=== PATIENT | female | born 1965 | race Caucasian/White ===

== ENCOUNTER 2023-04-06 08:38 | Day surgery (SDC) | payer MEDICARE, SELFPAY ==
[2023-04-06] VITALS (14 sets, daily range): BP systolic 97–143; BP diastolic 58–85; PULSE 58–87; RESP 15–19; O2SAT 90–99; BMI 31.4
--- NOTE | 2023-04-06 07:14 | IR_ITS ---
APPROVED REPORT Patient Location: Outpatient Moving Picture Producer: CORONA Sparks RT (R) PROCEDURES Left heart catheterization Left ventriculogram Selective coronary angiogram INDICATION Abnormal stress test, Angina pectoris, Strong family history of coronary disease, Informed consent was obtained prior to the procedure. COMPLICATIONS NONE Estimated Blood Loss: LESS THAN 10 ML TECHNIQUE One percent lidocaine used to anesthetize the right anterior aspect of the wrist. The right radial artery was accessed via the Seldinger technique. A 6 Salvadorean sheath was placed in the right radial artery. 150 mg magnesium sulfate, 800 mcg of nitroglycerin, 1mg Lidocaine and 5000 U Heparin were given through the arterial sheath. The papa catheter was also used to perform left heart catheterization, left ventriculogram and selective coronary angiogram. At the end of the procedure the sheath was removed good hemostasis was achieved using Traclet band, patient was transferred to the postop holding area in stable condition. ANGIOGRAPHIC RESULTS The left main artery Normal The left anterior descending artery Has proximal 10% luminal regularities with a mid vessel concentric 50% stenosis immediately distal to a third diagonal artery. The LAD is large and wraps the apex The circumflex artery Is nondominant and has proximal and mid vessel 10 to 20% stenoses The right coronary artery Is a dominant vessel and has proximal 10 to 20% stenoses with additional 10 to 20% stenoses in the posterior descending artery The TEJADA ventriculogram reveals Normal 65% The left ventricular end-diastolic pressure 10 mmHg IMPRESSION Moderate coronary artery disease in the mid LAD Mild diffuse coronary disease as described above Normal ejection fraction Normal left ventricular end-diastolic pressure PLAN 1. Medical management for the coronary artery disease 2. Risk factor modification 3. Cardiac rehabilitation 4. LDL less than 55 to be achieved with high intensity statin 5. Maximize antianginal medications Electronically signed by : Chris Copeland MD 04/06/2023 13:24:04
[2023-04-06 09:29] LABS: Basophils # 0.1 K/mm3 (0-0.2); Basophils % 0.6 % (0.1-2.0); Eosinophils # 0.1 K/mm3 (0.0-0.4); Eosinophils % 1.3 % (0.1-12.0); Hematocrit 45.6 % (37.0-47.0); Hemoglobin 14.5 g/dL (12.2-16.2); Lymphocytes # 2.6 K/mm3 (0.7-4.5); Lymphocytes % 29.5 % (10-50); Mean Corpuscular HGB Conc 31.8 g/dL (31.8-35.4); Mean Corpuscular Hemoglobin 28.6 pg (27.0-31.2); Mean Corpuscular Volume 89.9 fl (81-99); Mean Platelet Volume 8.3 fl (7.4-10.4); Monocytes # 0.4 K/mm3 (0.1-1.0); Monocytes % 4.9 % (1.7-9.3); Neutrophils # 5.6 K/mm3 (1.8-7.8); Neutrophils % 63.7 % (37.0-80.0); Platelet Count 335 K/mm3 (142-424); Red Blood Count 5.07 M/mm3 (4.20-5.40); Red Cell Distribution Width 13.2 % (11.5-17.5); White Blood Count 8.8 K/mm3 (4.8-10.8)
[2023-04-06 09:30] LABS: Chloride 101 mmol/L (98-107); Potassium 3.8 mmoL/L (3.5-5.1); Sodium 140 mmol/L (136-145)
[2023-04-06 09:33] LABS: Anion Gap 14.8 mEq/L (5-15); Blood Urea Nitrogen 24 mg/dl (7-17); Calcium 9.1 mg/dl (8.4-10.2); Carbon Dioxide 28 mmol/L (22.0-30.0); Creatinine Clearance Estimated 60 mL/min (50-200); Estimated Glomerular Filt Rate 46 ml/min (>60); GFR (African American) 56 ML/MIN (>60); Glucose 127 mg/dl (74-100)
[2023-04-06 09:36] LABS: INR 0.97 (0.9-1.1); Prothrombin Time 10.5 seconds (10.1-12.5)
== END 2023-04-06 14:06 | disposition home or self-care (01) ==
PROVIDERS: PCP Family Medicine; Visit Provider Internal Medicine
DX: I25.119 Atherosclerotic heart disease of native coronary artery with unspecified angina pectoris (principal); R60.0 Localized edema; R94.30 Abnormal result of cardiovascular function study, unspecified; Z82.49 Family history of ischemic heart disease and other diseases of the circulatory system
CPT/HCPCS: 80048; 85025; 85610; 93458; 99152; C1725; C1769; J1644; Q9967

== ENCOUNTER 2024-04-13 11:55 | Outpatient (CLI) | payer MEDICARE, SELFPAY ==
[2024-04-13 12:38] LABS: Basophils # 0.1 K/mm3 (0-0.2); Basophils % 1.3 % (0.1-2.0); Eosinophils # 0.1 K/mm3 (0.0-0.4); Eosinophils % 1.3 % (0.1-12.0); Hematocrit 42.3 % (37.0-47.0); Hemoglobin 13.7 g/dL (12.2-16.2); Lymphocytes # 2.3 K/mm3 (0.7-4.5); Lymphocytes % 39.3 % (10-50); Mean Corpuscular HGB Conc 32.5 g/dL (31.8-35.4); Mean Corpuscular Hemoglobin 29.6 pg (27.0-31.2); Mean Corpuscular Volume 90.9 fl (81-99); Mean Platelet Volume 8.6 fl (7.4-10.4); Monocytes # 0.3 K/mm3 (0.1-1.0); Monocytes % 5.3 % (1.7-9.3); Neutrophils # 3.1 K/mm3 (1.8-7.8); Neutrophils % 52.8 % (37.0-80.0); Platelet Count 318 K/mm3 (142-424); Red Blood Count 4.65 M/mm3 (4.20-5.40); Red Cell Distribution Width 13.9 % (11.5-17.5); White Blood Count 5.9 K/mm3 (4.8-10.8)
[2024-04-13 13:15] LABS: Alanine Aminotransferase 24 U/L (12-78); Albumin Level 4.2 g/dl (3.5-5.0); Alkaline Phosphatase 67 U/L (38-126); Anion Gap 15.1 mEq/L (5-15); Aspartate Amino Transferase 27 U/L (14-36); Bilirubin,Indirect 0.4 mg/dL (0.0-0.9); Bilirubin,Total 0.4 mg/dl (0.2-1.3); Bilirubin,Unconjugated 0.5 mg/dL (0.0-1.1); Blood Urea Nitrogen 20 mg/dl (7-17); Calcium 9.4 mg/dl (8.4-10.2); Carbon Dioxide 24 mmol/L (22.0-30.0); Chloride 107 mmol/L (98-107); Chol/HDL Ratio 4.6 (1-3.5); Cholesterol 285 mg/dl (140-200); Estimated Glomerular Filt Rate 51 ml/min (>60); GFR (African American) 61 ML/MIN (>60); Glucose 111 mg/dl (74-100); HDL Cholesterol 62 mg/dl (40-60); Potassium 4.1 mmoL/L (3.5-5.1); Sodium 142 mmol/L (136-145); Total Protein,Serum 7.1 g/dl (6.3-8.2); Triglycerides 141 mg/dl (30-150); VLDL Cholesterol 28 mg/dL (0-40)
[2024-04-13 13:27] LABS: Direct LDL Cholesterol 158.68 mg/dL (100-129)
[2024-04-13 13:31] LABS: Free T4 (Free Thyroxine) 1.08 ng/dl (0.78-2.19)
[2024-04-13 13:45] LABS: Thyroid Stimulating Hormone 3.49 uIU/mL (0.465-4.68)
== END 2024-04-13 23:59 | disposition home or self-care (01) ==
PROVIDERS: PCP Family Medicine; Visit Provider Nurse Practitioner Family
DX: E78.49 Other hyperlipidemia (principal); I11.9 Hypertensive heart disease without heart failure; I25.10 Atherosclerotic heart disease of native coronary artery without angina pectoris; R60.0 Localized edema
CPT/HCPCS: 36415; 80048; 80061; 80076; 83735; 84439; 84443; 85025

== ENCOUNTER 2025-05-24 12:11 | Outpatient (CLI) | payer MEDICARE, SELFPAY ==
--- OUTSIDE RECORDS SUMMARY | 2025-04-11 09:47 | XMS_ITS | Encounter Summary ---
Author Organization [facility] [place] [address] Care Team Providers Care Court Magistrate Name Role Phone Rachna Talavera MD Unavailable Fernando Green DO Primary Care Provider [phone] Reason for Referral * Mammography (Routine) - Pending Review Specialty Diagnoses / Procedures Referred By Manas ribeiro Referred To Contact Radiology Diagnoses Encounter for screening mammogram for malignant neoplasm of breast Procedures MM MAMMO DIGITAL LORIE SCREEN Fernando Farrell DO [address] [place] [phone] Phone: tel: fax: Referral ID Status Reason Start Date Expiration Date V isits Requested Visits Authorized [id number] Pending Review 03/08/2025 03/08/2027 1 1 Reason for Visit * Mammography (Routine) - Pending Review Specialty Diagnoses / Procedures Referred By Manas ribeiro Referred To Contact Radiology Diagnoses Encounter for screening mammogram for malignant neoplasm of breast Procedures MM MAMMO DIGITAL LORIE SCREEN Fernando Farrell DO [address] [place] [phone] Phone: tel: fax: Referral ID Status Reason Start Date Expiration Date V isits Requested Visits Authorized [id number] Pending Review 03/08/2025 03/08/2027 1 1 Encounter Details Date Type Department Care Team (Latest Contact Info) Description 04/11/2025 9:47 AM EDT - 04/11/2025 11:59 PM EDT Hospital Encounter [facility] Mammography [address] [place], [place] [id number] Fernando Green, DO [address] [facility] [address] [place] [address] Encounter for screening mammogram for malignant neoplasm of breast Discharge Disposition: Home or Self Care Social History Tobacco Use Types Packs/Day Years Used Date Smoking Tobacco: Never Passive Smoke Exposure: Past Smokeless Tobacco: Never Alcohol Use Standard Drinks/Week Comments Not Currently 1 (1 standard drink = 0.6 oz pur e alcohol) Overall Financial Resource Strain (CARDIA) Answe r Date Recorded How hard is it for you to pa y for the very basics like food, housing, medical care, and heating? Not hard at all 12/03/2020 PHQ-2 Answer Date Recorded PHQ-2 Total Score 0 06/06/2024 Hunger Vital Sign Answer Date Recorded Within the past 12 months, y ou worried that your food would run out before you got the money to buy more. Never true 12/03/19 21 Within the past 12 months, t he food you bought just didn't last and you didn't have money to get more. Never true 12/03/2020 PRAPARE - Transportation Answer Date Re corded In the past 12 months, has l ack of transportation kept you from medical appointments or from getting medications? No 05/2021 In the past 12 months, has l ack of transportation kept you from meetings, work, or from getting things needed for daily living? No 12/03/2020 Sexually Active Control Partners Comments Yes Surgical Male tubal Comments No Sex and Gender Information Value Date Recorded Sex Assigned at Not on file Legal Sex Female 6:40 PM EDT Gender Identity Not on file Sexual Orientation Not on file Occupation Industry Job Start Date Job End Date Not on file Not on file Not on file Not on file documented as of this encounter Last Filed Vital Signs Vital Sign Reading Time Taken Comments Blood Pressure - - Pulse - - Temperature - - Respiratory Rate - - Oxygen Saturation - - Inhaled Oxygen Concentration - - Weight 75.8 kg (167 lb) 04/11/2025 9:48 AM EDT Height - - Body Mass Index 30.54 02/15/2025 12:51 PM EDT documented in this encounter Functional Status * Is the person deaf or does he/she have serious difficulty hearing? Answer Date of Assessment Author No 06/24/2024 10:25 AM Karolina Turner MA * Is the person blind or does he/she have serious difficulty seeing even when wearing glasses? Answer Date of Assessment Author No 06/24/2024 10:25 AM Karolina Turner MA * Does this person have serious difficulty walking or climbing stairs? Answer Date of Assessment Author No 06/24/2024 10:25 AM Karolina Turner MA * Does this person have difficulty dressing or bathing? Answer Date of Assessment Author No 06/24/2024 10:25 AM Karolina Turner MA * Because of a physical, mental or emotional condition, does this person have difficulty doing errands alone such as visiting a doctor's office or shopping? Answer Date of Assessment Author No 06/24/2024 10:25 AM Karolina Turner MA documented as of this encounter Mental Status * Because of a physical, mental or emotional condition, does this person have serious difficulty concentrating, remembering or making decisions? Answer Entry Date Author No 06/24/2024 10:25 AM Karolina Turner MA documented in this encounter Medications at Time of Discharge fluticasone propionate (FLONASE) 50 mcg/actuation Nasl Gillett, SuspensionIndicat ions:Cough, unspecified type 1 Gillett by Nasal route daily. 1 Each 2 11/03/2023 omeprazole (PRILOSEC) 40 mg Oral Capsule, Delayed Release(E.C.) TAKE 1 CAPSULE BY MOUTH 2 TIMES DAILY. TAKE 30 MIN PRIOR TO BREAKFAST AND DINNER. 180 Capsule 3 01/17/2025 documented as of this encounter Discharge Disposition Disposition Code Departure Means Destination Home or Self Care documented in this encounter Plan of Treatment Upcoming Encounters Date Type Department Care Team (Late st Contact Info) Description 05/25/2025 8:15 AM EDT Office Visit [facility] [address] [place] [address] Fernando Green, [address] [facility] [address] [place] [address] 06/15/2025 10:30 AM EDT [facility] Visit [facility] [address] [facility] [address] [place] [address] Zamzam Carlisle MD [address] [place] [address] documented as of this encounter Goals Goal Patient Goal Type Associated Problems Recent Progress Patient-Stated? Author Blood Pressure < 140/90 Blood Pressure 134/94(2024 4:31 PM EDT) No Hyacinth Lemus MA Maintain a healthy diet, exercise regularly and maintain an ideal body weight General No LovelessSherri [facility] documented as of this encounter Procedures Procedure Name Priority Date/Time Associated Diagnosis Comments MM MAMMO DIGITAL LORIE SCREEN BILAT Routine 04/11/2025 9:52 AM EDT Encounter for screening mammogram for malignant neoplasm of breast documented in this encounter Results * MM MAMMO DIGITAL LORIE SCREEN BILAT (04/11/2025 9:52 AM EDT) Anatomical Region Laterality Modality Breast Bilateral Mammography 04/11/2025 9:52 AM EDT Impressions 04/11/2025 10:15 AM EDT Benign ([id number]) RECOMMENDATION: Routine Screening Mammogram in 1 Year Bilateral . . COMMENTS: DISCLAIMER *The patient was notified by MyChart or mail of the results for this examination. *The patient's information was entered into a reminder system with a target due date for the next breast imaging, in accordance with the [employer] and the Society of Breast Imaging recommendations. *Breast Imaging has a false negative rate of 15%. *Any patient with a palpable abnormality, unexplained by breast imaging, should be managed on a clinical basis by the attending physician. Narrative 04/11/2025 10:15 AM EDT EXAM: MM MAMMO DIGITAL LORIE SCREEN BILAT EXAM DATE: 04/11/2025 9:52 AM INDICATION: Z12.31-Encounter for screening mammogram for malignant neoplasm of [id number] COMPARISON STUDIES: Compared with prior studies the most recent being 03/18/2024 MM MAMMO DIGITAL LORIE SCREEN BILAT at [facility] 02/23/2023 MM MAMMO DIGITAL LORIE DIAGN BILAT at [facility] 12/30/2021 MM MAMMO DIGITAL LORIE DIAGN BILAT at [facility] TISSUE DENSITY: There are scattered areas of fibroglandular density. FINDINGS: No mammographic evidence of malignancy. Stable tissue pattern with biopsy marker in the left breast. Procedure Note Keith Orantes MD - 04/11/2025 EXAM: MM MAMMO DIGITAL LORIE SCREEN BILAT EXAM DATE: 04/11/2025 9:52 AM INDICATION: Z12.31-Encounter for screening mammogram for malignantneoplasm of [id number] COMPARISON STUDIES: Compared with prior studies the most recent being 03/18/2024 MM MAMMO DIGITAL LORIE SCREEN BILAT at [facility] 02/23/2023 MM MAMMO DIGITAL LORIE DIAGN BILAT at [facility] 12/30/2021 MM MAMMO DIGITAL LORIE DIAGN BILAT at [facility] TISSUE DENSITY: There are scattered areas of fibroglandular density. FINDINGS: No mammographic evidence of malignancy. Stable tissue patternwith biopsy marker in the left breast. IMPRESSION: Benign ([id number]) RECOMMENDATION: Routine Screening Mammogram in 1 Year Bilateral . . COMMENTS: DISCLAIMER *The patient was notified by MyChart or mail of the results for this examination. *The patient's information was entered into a reminder system with atarget due date for the next breast imaging, in accordance with the [employer] and the Society of Breast Imaging recommendations. *Breast Imaging has a false negative rate of 15%. *Any patient with a palpable abnormality, unexplained by breast imaging,should be managed on a clinical basis by the attending physician. Fernando Green DO IMG MAMMOGRAPHY ORDERABLES F inal Result documented in this encounter Visit Diagnoses Diagnosis Encounter for screening mammogram for malignant neoplasm of breast Other screening mammogram HTN, goal below 140/90- Primary Unspecified essential hypertension Hyperlipidemia with target LDL less than 100 Other and unspecified hyperlipidemia documented in this encounter Care Teams Court Magistrate Relationship Specialty Start Date End Date Fernando Green DO [address] [address] [address] [place] [id number] PCP - General Internal Medicine 06/06/24 Rachna Talavera MD [address] [place] [address] Physician Internal Medicine-Nephrology 05/23/15 documented as of this encounter
--- OUTSIDE RECORDS SUMMARY | 2025-04-18 10:30 | XMS_ITS | Encounter Summary ---
Author Organization [place] [address] Care Team Providers Care Rose Grader Name Role Phone Rachna Talavera MD Unavailable Fernando Green DO Primary Care Provider [phone] Reason for Visit * Reason Comments Medicare Annual Wellness Encounter Details Date Type Department Care Team (Late st Contact Info) Description 04/18/2025 10:30 AM EDT Office Visit [facility] [phone] [facility] [address] [place] [address] Fernando Green DO [address] [place] [address] Medicare annual wellness visit, subsequent (Primary Dx); HTN, goal below 140/90; Hyperlipidemia with target LDL less than 130; Screening for thyroid disorder; Urinary frequency; Obesity, Class I, BMI 30-34.9; Prediabetes; Depression with anxiety Social History Tobacco Use Types Packs/Day Years Used Date Smoking Tobacco: Never Passive Smoke Exposure: Past Smokeless Tobacco: Never Tobacco Cessation:Counseling Given: Not Answered Alcohol Use Standard Drinks/Week Comments Not Currently 1 (1 standard drink = 0.6 oz pur e alcohol) Overall Financial Resource Strain (CARDIA) Answe r Date Recorded How hard is it for you to pa y for the very basics like food, housing, medical care, and heating? Not hard at all 12/03/2020 PHQ-2 Answer Date Recorded PHQ-2 Total Score 0 04/18/2025 Hunger Vital Sign Answer Date Recorded Within [...] Sign Reading Time Taken Comments Blood Pressure 152/84 04/18/2025 10:24 AM EDT Pulse 75 04/18/2025 10:24 AM EDT Temperature - - Respiratory Rate 14 04/18/2025 10:24 AM EDT Oxygen Saturation 97% 04/18/2025 10:24 AM EDT Inhaled Oxygen Concentration - - Weight 76.8 kg (169 lb 6 oz) 04/18/2025 10:24 AM EDT Height 157.5 cm (5' 2 ) 04/18/2025 10:24 AM EDT Body Mass Index 30.98 04/18/2025 10:24 AM EDT documented in this encounter Functional Status * Cognitive and Functional Status Question Answer Date of Assessment Author Is the person deaf or does h e/she have serious difficulty hearing? No 04/18/2025 7:16 AM EDT Sirisha Coleman MA Is the person blind or does he/she have serious difficulty seeing even when wearing glasses? No 04/18/2025 7:16 AM EDT Adrianna Coleman MA Does this person have seriou s difficulty walking or climbing stairs? No 04/18/2025 7:16 AM ED T Adrianna Coleman MA Does this person have diffic ulty dressing or bathing? No 04/18/2025 7:16 AM EDT Adrianna Coleman MA * Is the person deaf or does he/she have serious difficulty hearing? Answer Date of Assessment Author No 04/18/2025 7:16 AM EDT Sirisha Coleman MA * Is the person blind or does he/she have serious difficulty seeing even when wearing glasses? Answer Date of Assessment Author No 04/18/2025 7:16 AM EDT Sirisha Coleman MA * Does this person have serious difficulty walking or climbing stairs? Answer Date of Assessment Author No 04/18/2025 7:16 AM EDT Sirisha Coleman MA * Does this person have difficulty dressing or bathing? Answer Date of Assessment Author No 04/18/2025 7:16 AM EDT Sirisha Coleman MA * Because of a physical, mental or emotional condition, does this person have difficulty doing errands alone such as visiting a doctor's office or shopping? Answer Date of Assessment Author No 04/18/2025 7:16 AM EDT Sirisha Coleman MA * PHQ-9 Total Score Answer Date of Assessment Author 0 04/18/2025 7:16 AM HARPREETT Sirisha Coleman MA * Question Answer Date of Assessment Author Little interest or pleasure in doing things 0 04/18/2025 7:16 AM HARPREETT Adrianna Coleman MA Feeling down, depressed, or hopeless 0 03/27 7:16 AM HARPREETT Adrianna Coleman MA PHQ-2 Total Score 0 04/18/2025 7:16 AM EDT Adrianna Coleman MA * PHQ-2 Total Score Answer Date of Assessment Author 0 04/18/2025 7:16 AM HARPREETT Sirisha Coleman MA * Question Answer Date of Assessment Author Feeling Nervous, Anxious, or on Edge 0 03/27 7:16 AM HARPREETT Adrianna Coleman MA Not Being Able to Stop or Co ntrol Worrying 0 04/18/2025 7:16 AM HARPREETT Adrianna Coelman MA Worrying too Much About Diff erent Things 0 04/18/2025 7:16 AM EDT Adrianna Coleman MA Trouble Relaxing 0 04/18/2025 7:16 AM EDT W Adrianna rueda MA Being so Restless That it is Hard to Sit Still 0 04/18/2025 7:16 AM EDT Adrianna Coleman MA Becoming Easily Annoyed or Irritable 0 03/27 7:16 AM EDT Adrianna Coleman MA Feeling Afraid as if Somethi ng Awful Might Happen 0 04/18/2025 7:16 AM EDT Adrianna Coleman MA OMAYRA-7 Total Score 0 04/18/2025 7:16 AM EDT Adrianna Coleman MA documented as of this encounter Mental Status * Cognitive and Functional Status Question Answer Entry Date Author Because of a physical, menta l or emotional condition, does this person have difficulty doing errands alone such as visiting a doctor's office or shopping? No 04/18/2025 7:16 AM EDT Adrianna Coleman MA Because of a physical, menta l or emotional condition, does this person have serious difficulty concentrating, remembering or making decisions? No 04/18/2025 7:16 AM EDT Adrianna Coleman MA * Because of a physical, mental or emotional condition, does this person have serious difficulty concentrating, remembering or making decisions? Answer Entry Date Author No 04/18/2025 7:16 AM EDT Sirisha Coleman MA documented in this encounter Ordered Prescriptions Prescription Sig Dispense Quantity Refills Last Filled Start Date End Date losartan (COZAAR) 100 mg Oral TabletIndications:H TN, goal below 140/90 Take 1 Tablet by mouth daily. 90 Tablet 3 04/18/2025 busPIRone (BUSPAR) 7.5 mg Oral TabletIndications:D epression with anxiety Take 1 Tablet by mouth 2 times daily. 60 Tablet 5 04/18/2025 buPROPion (WELLBUTRIN XL) 150 mg Oral Tablet Sustained Release 24 hrIndications:Depre ssion with anxiety Take 1 Tablet by mouth every morning. 30 Tablet 3 04/18/2025 hydroCHLOROthiazide 12.5 mg Oral TabletIndications:H TN, goal below 140/90 Take 1 Tablet by mouth daily. 90 Tablet 3 04/18/2025 atorvastatin (LIPITOR) 40 mg Oral TabletIndications:H yperlipidemia with target LDL less than 130 Take 1 Tablet by mouth daily. 90 Tablet 3 04/18/2025 documented in this encounter Progress Notes * Fernando Green, DO - 04/18/2025 10:30 AM EDT Assessment & Plan 1. Medicare wellness exam. - Blood pressure is slightly elevated, likely due to stress and recent headaches. - Thyroid levels previously checked and found to be within normal limits, albeit on the lower end of the range. - Blood sugar levels were borderline prediabetic during the last assessment. - Comprehensive blood workup will be conducted today, including tests for cortisol, kidney function, liver function, thyroid , cholesterol, and metabolic panel. If thyroid levels are found to be abnormal, appropriate medication will be initiated. Patient had episode of chest pain but believes it was stress. 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 2. Hypertension. - Blood pressure is slightly elevated today. - Dosage of losartan will be increased from 50 mg to 100 mg to better manage blood pressure and protect the heart. - Prescription for losartan will be sent to the pharmacy. 3. Hyperlipidemia. - Currently on Lipitor. - Prescription for Lipitor will be sent to the pharmacy. - Comprehensive blood workup will include cholesterol levels. - Follow-up in 3 months to assess medication effectiveness. 4. Stress. - Reports significant stress, agitation, and withdrawal from social activities. - Wellbutrin 150 mg once daily in the morning and BuSpar 7.5 mg twice daily will be prescribed to help manage stress and anxiety. - Potential side effects, including weight loss and improved concentration and focus, were discussed. - Advised to maintain regular exercise to help manage stress and improve metabolism. 5. Urinary frequency. - Reports frequent urination and concerns about a possible UTI. - No pain with urination but feels the need to urinate shortly after going. - Urine test shows chronic trace blood and slight increase in protein but no nitrites or Leuks present - Follow-up in 3 months to assess symptoms and test results. Visit complexity inherent to evaluation and management associated with medical care services that serve as the continuing focal point for all needed health care services and/or with medical care services that are part of ongoing care related to a patient's single, serious condition or a complex condition Assessment & Plan Medicare annual wellness visit, subsequent Orders: CBC; Future COMPREHENSIVE METABOLIC PANEL; Future THYROID STIMULATING HORMONE; Future Medicare questions completed and in this note. All questions answered and copy of the AVS given to patient at end of appointment. Appropriate age related health maintenance issues discussed. HTN, goal below 140/90 Orders: hydroCHLOROthiazide 12.5 mg Oral Tablet; Take 1 Tablet by mouth daily. COMPREHENSIVE METABOLIC PANEL; Future losartan (COZAAR) 100 mg Oral Tablet; Take 1 Tablet by mouth daily. BP Readings from Last 3 Encounters: 04/18/25 (!) 152/84 02/15/25 126/74 01/13/25 118/84 Rx increased -see above Hyperlipidemia with target LDL less than 130 Orders: atorvastatin (LIPITOR) 40 mg Oral Tablet; Take 1 Tablet by mouth daily. COMPREHENSIVE METABOLIC PANEL; Future LIPID SCREEN; Future No muscle weakness or jaundice symptoms reported. No chest pain symptoms. Continue same dose while labs are pending. Diet and exercise also discussed with patient. Screening for thyroid disorder Orders: T4, FREE (THYROXINE); Future THYROID STIMULATING HORMONE; Future Urinary frequency Orders: URINE CULTURE (NO STAIN); Future SEP URINALYSIS POC Obesity, Class I, BMI 30-34.9 Orders: CORTISOL; Future Prediabetes Orders: COMPREHENSIVE METABOLIC PANEL; Future HEMOGLOBIN A1C; Future Depression with anxiety Orders: buPROPion (WELLBUTRIN XL) 150 mg Oral Tablet Sustained Release 24 hr; Take 1 Tablet by mouth every morning. busPIRone (BUSPAR) 7.5 mg Oral Tablet; Take 1 Tablet by mouth 2 times daily. Patient denies thoughts of hurting self or others. Will call if increased or new symptoms. Follow up with me in 3 months. A new medicine was prescribed during this office visit. I educated patient about the reason for prescribing this new medication. I educated them of possible side effects, but also encouraged them to read the medication insert that will accompany their prescription and encouraged them to discuss any questions about the insert with their pharmacist. I also instructed to call if they experienced any side effects or possible allergic reaction after taking the medication. I discussed the risk of stopping the medication or deviating from prescribing instructions. Dosing instructions are present on the AVS. I inquired to see if there were any questions and answered them accordingly. patient verbalized full understanding of the new medication education given at today???s visit. Return in about 3 months (around 07/19/2025). Subjective Rabia Nobles is a 59 y.o. female Chief Complaint Patient presents with Medicare Annual Wellness Subsequent Annual Medicare Wellness Assessment. Risk Assessments: Fall Risk Assessment Has the patient had any fall with injury in the past year?: No Has the patient had 2 or more falls in the past year?: No Is the patient able to sit without assistance?: Yes Is the patient able to get up without assistance?: Yes Does the patient have a difficult time ambulating when first getting up?: (!) Yes Does the patient have rugs or runners in the home?: No Does the patient have grab bars in the bathroom?: (!) No Does the patient have stairs inside or outside of the home?: (!) Yes Does the patient have handrails for all inside or outside stairs?: Yes (In Office Assessment Only): Is the patient able to ambulate without assistance/device and with a gait steady?: Yes (In Office Assessment Only): TUG test: Time patient going from sitting to standing, walk 10 feet, return to chair and sit. Record time. : Less or equal to 12 seconds Functional Status Assessment Functional Level: self care Functional Mobility Assessment: independent w/o assist device Assessment of transportation needs: still drives most of the time Functional Activities of Daily Living Limitations: No issues Bladder: Do you have issues with your bladder, such as urgency or leaking urine?: Mild issues Does the patient report issues or concerns regarding hearing?: No Activities of Daily Living Assistive Device Assessment Assistive Devices: Eyeglasses Rx Osteoporosis Screening Assessment Has the patient had a DEXA (Bone Density) scan in the past 2 years?: (!) No No results found for this or any previous visit. Abnormal Pains Assessment Excluding what you would consider normal aches and pains for your age and medical condition, do youhave any unusual or worrisome pains?: (!) Yes (mid back pain x several years) Opiate Screening Are you currently on opiate or narcotic medications?: No PHQ Depression Screening Results Little interest or pleasure in doing things: 0 Feeling down, depressed, or hopeless: 0 PHQ-2 Total Score: 0 PHQ-9 Total Score: 0 Advanced Directive Evaluation Does the patient have an Advance Directive?: (!) No Advance Care Planning Guide Given?: (!) No (For Dementia Screening below can use either AD-8 or Mini Cog. Doesn't require both.) AD-8 Dementia Screening tool results Problems with judgement: 0 Less interest in hobbies/activities: (!) 1 Repeats the same things over and over: 0 Trouble learning how to use a tool, appliance or gadget: 0 Forgets correct month or year: 0 Trouble handling complicated financial affairs: 0 Trouble remembering appointments: 0 Daily problems with thinking and/or memory: 0 Total AD8 score:: 1 Mini Cog Dementia Screening tool results Patient Instructions AWV findings and Plan of Care: Recommendations as part of the Personal Plan of Care based on risk screening assessments are: Fall Risk Assessment: Fall Risk Assessment: negative - re-assess in 1 year Functional Status/Social Determinates of Health: stable, no issues, re-assess in 1 year Depression Screening: positive - new finding, see orders for treatment and/or referral recommendations Dementia Screening: negative - recommend re-assess in 1 year Vaccinations: patient declined all vaccines today Exercise/Activity: recommended continuing current Recommended follow up annually for Medicare Annual Wellness Visit. Good preventative health care is important in reducing morbidity and mortality. I recommend exercise regularly as tolerated focusing on strength and balance. I recommend a balanced diet focusing on fruits, veggies, and lean meats. I recommend avoiding having rugs, runners, or other loose trip hazards in the home as these increase fall risk. I recommend installing grab bars in the bathrooms close to toilets, in tubs, and in showers as these are common areas for falls when transitioning from wet surfaces to dry surfaces, or visa versa. This is also an area of the home that is high risk for falls at night. I encourage having an Advanced Directives. This is something we recommend you have on file at home,as well as something that we should have on file in our records. If we don't have a copy of your current Advanced Directive, please bring a copy to your next visit. If you have a power of divorce attorney orsurrogate, we should also have a copy on file. I encourage candid discussion with your family on your wishes in the event that you are incapacitated and unable to participate in direct medical decision making. It is important to stay up to date on recommended vaccinations, please see the health maintenance topics due below and if we have not completed one of those topics today, please consider completing as part of your wellness plan this year. Below are other health maintenance topics that are recommended to be closed at your earliest opportunity. You may notice that some of these were addressed in the office today and will show as resolved in your [employer] account soon. Health Maintenance Due Topic Date Due Zoster (1 of 2) Never done Pneumococcal Vaccine 50+ (2 of 2 - PCV) 11/07/2016 Cervical Cancer Screening 01/10/2022 DTaP/TDaP/Td (2 - Td or Tdap) 11/24/2023 COVID-19 Vaccine (3 - 2023- season) 2024 As part of today's visit the components of the Medicare wellness assessment were completed. These components included reviewing the information available in the risk screening questionnaire that was administered by ancillary staff either today or prior to today's visit (pre-visit planning) and recorded in the Medicare Wellness Assessment Flowsheet in the EMR. I have reviewed the data in regards to fall risk, activities of daily living/functional status, depression screening, dementia screening,and outstanding Health Maintenance topics and edited where necessary. The staff has reviewed and updated the past medical history, social history, family history, allergies, medications, and care team information during the standard rooming process. I have also reviewed this data as part of today'svisit. Below are the findings, recommendations, and Personal Plan of Care. The patient received a copy of their Personal Plan of Care including health maintenance topics thatare recommended to be completed and this can be noted in the after visit summary. The AVS is provided to the patient digitally through their [employer] account or with a paper copy if the patient doesn't have an active MyChart Account. A copy of today's progress note with recommendations below is alsoavailable electronically for patients with an active MyChart account per the Federal Cures Act. TheAVS also contains additional patient education if appropriate on topics common to wellness and their plan of care. History Reviewed: No results found. Results for orders placed or performed in visit on 04/18/25 SEP URINALYSIS POC Result Value Ref Range UA Color POC Yellow Color UA Appear POC Clear Clear UA Gluc POC Negative Negative mg/dL UA Bili POC Negative Negative UA Ketones POC Negative Negative mg/dL UA SG POC >=1.030 1.001 - 1.035 no units UA Blood POC Trace-Intact (A) Negative UA pH POC 5.5 5.0 - 8.0 pH UA Protein POC 30 (A) Negative mg/dL UA Urobilinogen POC 0.2 0.2, 1.0 UA Nitrite POC Negative Negative UA Leuk Est POC Negative Negative Patient Active Problem List Diagnosis Muscle atrophy Decreased libido GERD (gastroesophageal reflux disease) Edema Depression Multifocal motor neuropathy (HCC) Essential hypertension, benign CKD (chronic kidney disease), stage III (HCC) Hypercholesteremia Chronic thoracic back pain Symptomatic menopausal or female climacteric states Family history of coagulation disorder Past Medical History: Diagnosis Date Anxiety 12/2019 Since the pandemic Chronic thoracic back pain 12/04/2016 Depression 10/2020 Not sure why GERD (gastroesophageal reflux disease) Not sure years ago Hypercholesteremia Hypercholesteremia 12/04/2016 Hypertension Not sure years ago Kidney disease In 2013 Neuropathy multifocal motor neuropathy Past Surgical History: Procedure Laterality Date ABDOMEN SURGERY Not sure Gall bladder removed BREAST BIOPSY Left 01/06/2022 UOQ SECTION 04/1989 CHOLECYSTECTOMY 2002 COLONOSCOPY 2014 TUBAL LIGATION 1991 UPPER GASTROINTESTINAL ENDOSCOPY N/A 10/08/2015 Esophagogastroduodenoscopy with biopsy; Surgeon: Miguel Benavidez MD; Location: [facility] END[facility]COPY; Service: Endoscopy Allergies Allergen Reactions Nigel Inhibitors Other (See Comments) Contraindicated for CKD Bactrim [Sulfamethoxazole-Trimethoprim] Other (See Comments) Pt does not want to take, had increased urinary problem while on med Current Outpatient Medications on File Prior to Visit Medication Sig Dispense Refill fluticasone propionate (FLONASE) 50 mcg/actuation Nasl [place], Suspension 1 [place] by Nasal route daily. 1 Each 2 omeprazole (PRILOSEC) 40 mg Oral Capsule, Delayed Release(E.C.) TAKE 1 CAPSULE BY MOUTH 2 TIMES DAILY. TAKE 30 MIN PRIOR TO BREAKFAST AND DINNER. 180 Capsule 3 No current facility-administered medications on file prior to visit. Social History Socioeconomic History Marital status: Spouse name: None Number of children: 2 Years of education: None Highest education level: None Occupational History Employer: [employer] Tobacco Use Smoking status: Never Passive exposure: Past Smokeless tobacco: Never Vaping Use Vaping status: Never Used Substance and Sexual Activity Alcohol use: Not Currently Alcohol/week: 0.6 oz Types: 1 Glasses of wine per week Drug use: No Sexual activity: Yes Partners: Male control/protection: Surgical Comment: tubal Social Drivers of Health Financial Resource Strain: Low Risk (12/03/2020) Overall Financial Resource Strain (CARDIA) Difficulty of Paying Living Expenses: Not hard at all Food Insecurity: No Food Insecurity (12/03/2020) Hunger Vital Sign Worried About Running Out of Food in the Last Year: Never true Ran Out of Food in the Last Year: Never true Transportation Needs: No Transportation Needs (12/03/2020) PRAPARE - Transportation Lack of Transportation (Medical): No Lack of Transportation (Non-Medical): No Family History Problem Relation Age of Onset Diabetes Father Heart Disease Father High Blood Pressure Father Hypertension Father Heart Attack Father 55 Other Mother factor V leiden Cancer Mother Skin cancer Thyroid Disease Mother Kidney Disease Mother Colon Polyps Mother Irritable Bowel Syndrome Mother Heart Disease Brother Other Brother Blood clots in legs Colon Cancer Neg Hx Esophageal Cancer Neg Hx Bleeding Prob Neg Hx Migraines Neg Hx Hearing Loss Neg Hx Allergies Neg Hx Immunization History Administered Date(s) Administered Influenza Patient Reported 08/03/2016 Influenza Vaccine, Unspecified Formulation 08/26/2015, 08/03/2016 Pfizer SARS-CoV-2 Vaccine 12+ Yrs (Purple Cap) 02/04/2021, 02/25/2021 Pneumococcal Polysaccharide 23 Valent 11/07/2015 Tdap 11/24/2013 Health Maintenance Topic Date Due Zoster (1 of 2) Never done Pneumococcal Vaccine 50+ (2 of 2 - PCV) 11/07/2016 Cervical Cancer Screening 01/10/2022 DTaP/TDaP/Td (2 - Td or Tdap) 11/24/2023 COVID-19 Vaccine (3 - season) 2024 Wellness Exam Medicare 06/07/2025 Influenza Vaccine (Season Ended) 2025 Breast Cancer Screening 04/11/2027 Colon Cancer Screening 06/15/2027 Hepatitis C Screening Completed Meningococcal B Vaccine Aged Out Hepatitis B Vaccine Aged Out Patient Care Team: Fernando Green DO as PCP - General (Internal Medicine) Rachna Talavera MD as Physician (Internal Medicine-Nephrology) Additional issues addressed today: History of Present Illness The patient is a 59-year-old female who presents for a Medicare wellness exam, follow-up on hypertension and hyperlipidemia, and evaluation of chest discomfort, stress, and urinary frequency. She experienced chest discomfort yesterday while exposed to heat, which has since subsided. However, she continues to feel unwell.. She reports no current pain but admits to experiencing shortness ofbreath during exertion. An episode of lightheadedness and dizziness upon standing up yesterday was accompanied by a wave of nausea. She reports no ear pain or diarrhea. Her ankles and fingers tend toswell in hot weather, a long-standing issue. She does not experience any pain during urination but has noticed an increased frequency of urination, leading her to suspect a possible urinary tract infection. She has been under significant stress recently, which she believes may have triggered an anxiety attack. She reports poor sleep quality, feelings of agitation and anger, and social withdrawal. She does not endorse any suicidal ideation or major panic attacks. She reports no difficulty swallowing. She recalls an incident of severe headache after returning from the baseball game yesterday, which was alleviated by Advil within an hour. She has not consumed any alcohol recently and maintains hydration with water. She has been off estrogen and progesterone since 06/2024. She occasionally monitors her blood pressure at home, which has been stable. She has not consumed soft drinks for the past 2 years and primarily drinks water and sweet tea. She has been walking for 45 minutes daily for the past 7 days. She has been making dietary modifications, including reducing bread intake and experimenting with gluten-free options. She has no history of thyroid cancer. SOCIAL HISTORY She does not drink alcohol. Review of Systems Constitutional: Negative. Negative for activity change, chills, fatigue, fever and unexpected weight change. HENT: Negative for congestion and trouble swallowing. Eyes: Negative for visual disturbance. Respiratory: Negative for cough and shortness of breath. Cardiovascular: Positive for chest pain. Negative for palpitations and leg swelling. Gastrointestinal: Negative for abdominal pain, blood in stool, constipation, diarrhea, nausea and vomiting. Genitourinary: Positive for frequency. Negative for decreased urine volume, difficulty urinating, dysuria, hematuria and urgency. Musculoskeletal: Negative for arthralgias, back pain and joint swelling. Skin: Negative for rash. Neurological: Positive for dizziness. Negative for tremors, syncope, numbness and headaches. Psychiatric/Behavioral: Positive for decreased concentration, dysphoric mood and sleep disturbance.Negative for self-injury and suicidal ideas. The patient is nervous/anxious. All other systems reviewed and are negative. Objective Blood pressure (!) 152/84, pulse 75, resp. rate 14, height 5' 2 (1.575 m), weight 169 lb 6 oz (76.8 kg), SpO2 97%, not currently . Body mass index is 30.98 kg/m??. Physical Exam Ears: External ears and ear canals are clear, no cerumen impaction. Cardiovascular: Blood pressure is elevated. Physical Exam Vitals and nursing note reviewed. Constitutional: General: She is not in acute distress. Appearance: She is well-developed. She is not diaphoretic. HENT: Head: Normocephalic and atraumatic. Right Ear: Tympanic membrane and ear canal normal. Left Ear: Tympanic membrane and ear canal normal. Eyes: General: No scleral icterus. Pupils: Pupils are equal, round, and reactive to light. Neck: Thyroid: No thyromegaly. Vascular: No carotid bruit or JVD. Cardiovascular: Rate and Rhythm: Normal rate and regular rhythm. Heart sounds: Normal heart sounds. No murmur heard. No friction rub. No gallop. Pulmonary: Effort: Pulmonary effort is normal. No respiratory distress. Breath sounds: Normal breath sounds. No wheezing or rales. Abdominal: General: Bowel sounds are normal. There is no distension. Palpations: Abdomen is soft. Tenderness: There is no abdominal tenderness. There is no guarding or rebound. Musculoskeletal: Cervical back: Neck supple. Right lower leg: No edema. Left lower leg: No edema. Lymphadenopathy: Cervical: No cervical adenopathy. Skin: General: Skin is warm and dry. Capillary Refill: Capillary refill takes less than 2 seconds. Coloration: Skin is not jaundiced or pale. Neurological: General: No focal deficit present. Mental Status: She is alert and oriented to person, place, and time. Psychiatric: Behavior: Behavior normal. Thought Content: Thought content normal. Judgment: Judgment normal. Comments: Anxious at times during exam. Speech clear and coherent. Results Labs - Thyroid level: Slightly in the slow range Lab Results Component Value Date HGBA1C 5.9 (H) 06/13/2024 Chemistry Component Value Date/Time NA 141 06/13/2024 0709 NA 143 02/12/2017 1634 K 3.6 06/13/2024 0709 K 3.5 02/12/2017 1634 CL 108 (H) 06/13/2024 0709 CL 107 02/12/2017 1634 CO2 22 06/13/2024 0709 CO2 22 02/12/2017 1634 CO2 22 04/07/2014 0930 BUN 21 06/13/2024 0709 BUN 16 02/12/2017 1634 CREATININE 1.24 06/13/2024 0709 CREATININE 1.2 03/04/2024 1101 CREATININE 1.04 02/12/2017 1634 GLU 128 (H) 06/13/2024 0709 GLU 100 02/12/2017 1634 Component Value Date/Time CALCIUM 9.1 06/13/2024 0709 CALCIUM 9.0 02/12/2017 1634 ALKPHOS 64 06/13/2024 0709 ALKPHOS 50 06/09/2017 0815 AST 17 06/13/2024 0709 AST 15 06/09/2017 0815 ALT 23 06/13/2024 0709 ALT 24 06/09/2017 0815 BILITOT 0.6 04/07/2014 0930 Lab Results Component Value Date CHOLESTEROL 166 06/13/2024 CHOLESTEROL 166 09/11/2023 CHOLESTEROL 185 05/03/2022 Lab Results Component Value Date HDL 58 06/13/2024 HDL 56 09/11/2023 HDL 55 05/03/2022 Lab Results Component Value Date LDLCALC 88 06/13/2024 LDLCALC 91 09/11/2023 LDLCALC 104 (H) 05/03/2022 Lab Results Component Value Date TRIG 113 06/13/2024 TRIG 102 09/11/2023 TRIG 146 05/03/2022 Lab Results Component Value Date TSH 4.790 (H) 06/13/2024 Lab Results Component Value Date WBC 6.4 06/13/2024 HGB 12.6 06/13/2024 HCT 39.6 06/13/2024 MCV 90.4 06/13/2024 PLT 309 06/13/2024 Results for orders placed or performed in visit on 04/18/25 SEP URINALYSIS POC Result Value Ref Range UA Color POC Yellow Color UA Appear POC Clear Clear UA Gluc POC Negative Negative mg/dL UA Bili POC Negative Negative UA Ketones POC Negative Negative mg/dL UA SG POC >=1.030 1.001 - 1.035 no units UA Blood POC Trace-Intact (A) Negative UA pH POC 5.5 5.0 - 8.0 pH UA Protein POC 30 (A) Negative mg/dL UA Urobilinogen POC 0.2 0.2, 1.0 UA Nitrite POC Negative Negative UA Leuk Est POC Negative Negative . Patient to call if increased or new symptoms otherwise follow up as directed. Results for orders placed or performed in visit on 04/18/25 SEP URINALYSIS POC Result Value Ref Range UA Color POC Yellow Color UA Appear POC Clear Clear UA Gluc POC Negative Negative mg/dL UA Bili POC Negative Negative UA Ketones POC Negative Negative mg/dL UA SG POC >=1.030 1.001 - 1.035 no units UA Blood POC Trace-Intact (A) Negative UA pH POC 5.5 5.0 - 8.0 pH UA Protein POC 30 (A) Negative mg/dL UA Urobilinogen POC 0.2 0.2, 1.0 UA Nitrite POC Negative Negative UA Leuk Est POC Negative Negative The provider educated the patient (or legal technical support representative) on the use of the ambient listening artificial intelligence tool, [employer]. They were informed that this AI tool processes the conversation to generate a clinical note with the expected benefit of improved accuracy while achieving an improved encounter experience for the patient and provider.?The provider explained that the medical information captured by the AI tool including, but not limited to, diagnoses and treatment plan would be protected in accordance with applicable privacy laws and that all diagnoses and treatment decisions would be made by the provider. The provider explained that the note generated will be reviewed bythe provider for accuracy to minimize potential errors.? The patient was given an opportunity to ask questions and opt out of proceeding with the use of the AI tool. After being informed of such information, the patient (or legal technical support representative), and each individual in attendance with the patient, verbally consented to the use of the AI tool. documented in this encounter Plan of Treatment Upcoming Encounters Date Type Department Care Team (Late st Contact Info) Description 05/25/2025 8:15 AM EDT Office Visit [facility] [address] [address] [address] [place] [address] Fernando Green DO [address] [address] [address] [place] [id number] 06/15/2025 10:30 AM EDT Office Visit [facility] [place] [address] [place] [address] [address] [place] [address] Zamzam Carlisle MD [address] [place] [address] documented as of this encounter Goals Goal Patient Goal Type Associated Problems Recent Progress Patient-Stated? Author Blood Pressure < 140/90 Blood Pressure 134/94(2024 4:31 PM EDT) No Hyacinth Lemus MA Maintain a healthy diet, exercise regularly and maintain an ideal body weight General No Sherri Arevalo RMA documented as of this encounter Procedures Procedure Name Priority Date/Time Associated Diagnosis Comments SEP URINALYSIS POC Routine 04/18/2025 11 :17 AM EDT Urinary frequency URINE CULTURE (NO STAIN) Routine 04/18/2025 11:13 AM EDT Urinary frequency documented in this encounter Results * (ABNORMAL) SEP URINALYSIS POC (04/18/2025 11:17 AM EDT) UA Color POC Yellow Color 04/18/2025 11:19 AM EDT [facility] UA Appear POC Clear Clear 04/18/2025 11:19 AM EDT [facility] 42 UA Gluc POC Negative Negative mg/dL 04/18/2025 11:19 AM EDT [facility] 42 UA Bili POC Negative Negative 04/18/2025 11:19 AM EDT [facility] 42 UA Ketones POC Negative Negative mg/dL 04/18/2025 11:19 AM EDT [facility] 42 UA SG POC >=1.030 1.001 - 1.035 no units 04/18/2025 11:19 AM EDT [facility] 42 UA Blood POC Trace-Intact (A) Negative 04/18/2025 11:19 AM EDT [facility] 42 UA pH POC 5.5 5.0 - 8.0 pH 04/18/2025 11:19 AM EDT [facility] UA Protein POC 30(A) Negative mg/dL 04/18/2025 11:19 AM EDT [facility] 42 UA Urobilinogen POC 0.2 0.2, 1.0 04/18/2025 11:19 AM EDT [facility] 42 UA Nitrite POC Negative Negative 04/18/2025 11:19 AM EDT [facility] UA Leuk Est POC Negative Negative 11:19 AM EDT [facility] 42 Urine STRUCTURE OF URINARY TRACT PROPER / Unknown 04/18/2025 11:17 AM EDT 04/18/2025 11:19 AM EDT us Fernando Green DO POINT OF CARE TEST ORDERABLE S Final Result [place] [id number] [address] [id number] * CORTISOL (04/18/2025 11:15 AM EDT) Cortisol 9.59 mcg/dL 04/18/2025 3:2 9 PM EDT [facility] Blood VENOUS BLOOD / Unknown Venipuncture / Unknown 04/18/2025 11:15 AM EDT 04/18/2025 11:15 AM EDT Narrative [facility] - 04/18/2025 3:29 PM EDT AM: 4.82 - 19.5 mcg/dL This reference interval was verified on healthy individuals between the hours of 6:00 am -10:00 am. This interval may not be appropriate outside of that time range. PM: 2.47 - 11.9 mcg/dL This reference interval was verified on healthy individuals between the hours of 4:00 pm -8:00 pm. This interval may not be appropriate outside of that time range. Ingestion of keyona doses of biotin (>5 mg/day) taken within 8 hours of drawing blood sample can interfere with this immunoassay test. Fernando Green DO CHEMISTRY ORDERABLES Final R [employer] Performing Organization Address City/[facility]/ZIP Co de Phone Number [facility] [employer] [address] [place] [address] , [place] [address] * THYROID STIMULATING HORMONE (04/18/2025 11:15 AM EDT) Pathologist [facility] TSH 3.170 0.270 - 4.200 mcIU/mL 04/18/2025 4:10 PM EDT [facility] Blood VENOUS BLOOD / Unknown Venipuncture / Unknown 04/18/2025 11:15 AM EDT 04/18/2025 11:15 AM EDT Narrative [facility] - 04/18/2025 4:10 PM EDT Ingestion of keyona doses of biotin (>5 mg/day) taken within 8 hours of drawing blood sample can interfere with this immunoassay test. Fernando Green DO CHEMISTRY ORDERABLES Final R [facility] Performing Organization Address City/[facility]/ZIP Co de Phone Number [facility] [address] [place] [address] , [place] [address] * T4, FREE (THYROXINE) (04/18/2025 11:15 AM EDT) Free T4 1.12 0.80 - 1.80 ng/dL 04/18/2025 4:10 PM EDT [facility] [employer] Blood VENOUS BLOOD / Unknown Venipuncture / Unknown 04/18/2025 11:15 AM EDT 04/18/2025 11:15 AM EDT Narrative [facility] - 04/18/2025 4:10 PM EDT Ingestion of keyona doses of biotin (>5 mg/day) taken within 8 hours of drawing blood sample can interfere with this immunoassay test. Fernando Green DO CHEMISTRY ORDERABLES Final R esult [facility] [address] [facility] , [place] [address] * (ABNORMAL) LIPID SCREEN (04/18/2025 11:15 AM EDT) Cholesterol 221(H) <200 mg/dL 04/18/2025 4:10 PM EDT [facility] [employer] Comment: < 200 Desirable 200 - 239 Borderline High >= 240 High Triglyceride 117 <150 mg/dL 04/18/2025 4:10 PM EDT [facility] [employer] Comment: < 150 Normal 150 - 199 Borderline High 200 - 499 High >= 500 Very High HDL 60 >=40 mg/dL 04/18/2025 4:10 PM EDT [facility] [employer] Comment: > 60 Optimal 40 - 60 Acceptable < 40 Low LDL Calculated 140(H) <100 mg/dL 04/18/2025 4:10 PM EDT [facility] Comment: < 100 Optimal 100 - 129 Near or above optimal 130 - 159 Borderline High 160 - 189 High >= 190 Very High The National Institutes of Health (NIH) equation is used for all lipid panels that report calculated LDL (LDL-C). Non-HDL-C Calculated 161(H) <=129 mg/dL 04/18/2025 4:10 PM EDT [facility] [employer] Comment: <130 Desirable 130-159 Above Desirable 160-189 Borderline High 190-219 High >= 220 Very High Fasting Specimen? Yes None 025 4:10 PM EDT [facility] Blood VENOUS BLOOD / Unknown Venipuncture / Unknown 04/18/2025 11:15 AM EDT 04/18/2025 11:15 AM EDT us Fernando Green DO CHEMISTRY ORDERABLES Final R esult [facility] [address] [facility] , [place] [address] * (ABNORMAL) COMPREHENSIVE METABOLIC PANEL (04/18/2025 11:15 AM EDT) Sodium 141 136 - 145 mmol/L 04/18/2025 4:10 PM EDT [facility] Potassium 3.8 3.5 - 5.0 mmol/L 04/18/2025 4:10 PM EDT [facility] Chloride 108(H) 98 - 107 mmol/L 04/18/2025 4:10 PM EDT [facility] Total CO2 20(L) 22 - 29 mmol/L 04/18/2025 4:10 PM EDT [facility] Anion Gap 13 7 - 16 mmol/L 04/18/2025 4:10 PM EDT [facility] Calcium 9.4 8.8 - 10.4 mg/dL 04/18/2025 4:10 PM EDT [facility] Glucose Lvl 121(H) 70 - 99 mg/dL 04/18/2025 4:10 PM EDT [facility] BUN 21 8 - 23 mg/dL 04/18/2025 4:10 PM EDT [facility] Creatinine 1.06 0.51 - 1.30 mg/dL 04/18/2025 4:10 PM EDT [facility] Albumin 4.3 3.2 - 4.6 gm/dL 04/18/2025 4:10 PM EDT [facility] Total Protein 7.1 6.4 - 8.3 gm/dL 04/18/2025 4:10 PM EDT [facility] Bili Total 0.4 0.2 - 1.3 mg/dL 04/18/2025 4:10 PM EDT [facility] ALT 29 <=41 U/L 04/18/2025 4:10 PM EDT [facility] AST 18 <=40 U/L 04/18/2025 4:10 PM EDT [facility] Alk Phos 69 36 - 123 U/L 04/18/2025 4:10 PM EDT [facility], [facility] eGFR (CKD-EPIcr 2020) 59(L) >=60 mL/min/1.7 3 m2 04/18/2025 4:10 PM EDT [facility] Comment:Estimated GFR was ca lculated using the CKD-EPIcr (2020) equation refit without race. The equation is recommended by the National Kidney Foundation - [place] [employer] Neph[employer] Task Force. Blood VENOUS BLOOD / Unknown Venipuncture / Unknown 04/18/2025 11:15 AM EDT 04/18/2025 11:15 AM EDT Fernando Green DO CHEMISTRY ORDERABLES Final R esult Performing Organization Address City/[facility]/ZIP Co de Phone Number [facility] [employer], [facility] [address] [facility] , [place] [address] * URINE CULTURE (NO STAIN) (04/18/2025 11:13 AM EDT) Culture Multiple bacterial species isolated from urine consistent with urogenital commensal organisms. 04/20/2025 8:06 AM EDT [facility] [employer], [facility] Urine STRUCTURE OF URINARY TRACT PROPER / Unknown 04/18/2025 11:13 AM EDT 04/18/2025 11:13 AM EDT Fernando Green DO MICROBIOLOGY - GENERAL ORDER STEPH Final Result Performing Organization Address City/[facility]/ZIP Co de Phone Number [facility] [employer], [facility] [address] [facility] , [place] [address] documented in this encounter Visit Diagnoses Diagnosis Medicare annual wellness visit, subsequent- Primary Routine general medical examination at a health care facility HTN, goal below 140/90 Unspecified essential hypertension Hyperlipidemia with target LDL less than 130 Other and unspecified hyperlipidemia Screening for thyroid disorder Urinary frequency Obesity, Class I, BMI 30-34.9 Obesity, unspecified Prediabetes Other abnormal glucose Depression with anxiety Dysthymic disorder HTN, goal below 140/90- Primary Unspecified essential hypertension Hyperlipidemia with target LDL less than 100 Other and unspecified hyperlipidemia documented in this encounter Discontinued Medications Medication Sig Discontinue Reason Start Date End Da te losartan (COZAAR) 50 mg Oral TabletIndications:HTN, goal below 140/90 Take 1 Tablet by mouth daily. Dose adjustment 06/06/2024 04/18/2025 atorvastatin (LIPITOR) 40 mg Oral TabletIndications:Hyperl ipidemia with target LDL less than 130 Take 1 Tablet by mouth daily. Reorder 06/06/2024 04/17/2025 hydroCHLOROthiazide 12.5 mg Oral TabletIndications:HTN, goal below 140/90 Take 1 Tablet by mouth daily. Reorder 06/06/2024 04/17/2025 documented as of this encounter Orders Lab Orders Without Results Count Last Ordered D ate First Ordered Date CBC 04/18/2025 HEMOGLOBIN A1C 1 04/18/2025 documented in this encounter Care Teams Rose Grader Relationship Specialty Start Date End Date Fernando Green DO [address] [address] [address] [place] [id number] PCP - General Internal Medicine 06/06/24 Rachna Talavera MD [address] [place] [address] Physician Internal Medicine-Nephrology 05/23/15 documented as of this encounter
--- OUTSIDE RECORDS SUMMARY | 2025-04-18 11:14 | XMS_ITS | Encounter Summary ---
Author Organization [place] [address] Care Team Providers Care Patternmaker Name Role Phone Rachna Talavera MD Unavailable Fernando Green DO Primary Care Provider [phone] Encounter Details Date Type Department Care Team (Latest Contact Info) Description 04/18/2025 11:14 AM EDT - 04/18/2025 11:59 PM EDT Hospital Encounter [facility] Draw Site [address] [place] [address] [address] [place] [address] Medicare annual wellness visit, subsequent; HTN, goal below 140/90; Hyperlipidemia with target LDL less than 130; Prediabetes; Screening for thyroid disorder; Obesity, Class I, BMI 30-34.9 Discharge Disposition: Home or Self Care Social [...] on file documented as of this encounter Functional Status * Cognitive and [...] dressing or bathing? No 04/18/2025 7:16 AM HARPREETT Adrianna Coleman MA * Is the person deaf or does he/she have serious difficulty hearing? Answer Date of Assessment Author No 04/18/2025 7:16 AM HARPREETT Sirisha Coleman MA * Is the person blind or does he/she have serious difficulty seeing even when wearing glasses? Answer Date of Assessment Author No 04/18/2025 7:16 AM HARPREETT Sirisha Coleman MA * Does this person have serious difficulty walking or climbing stairs? Answer Date of Assessment Author No 04/18/2025 7:16 AM HARPREETT Sirisha Coleman MA * Does this person [...] of Assessment Author 0 04/18/2025 7:16 AM EDT Sirisha Coleman MA * Question Answer Date of Assessment Author Little interest or pleasure in doing things 0 04/18/2025 7:16 AM EDT Adrianna Coleman MA Feeling down, depressed, or hopeless 0 03/27 7:16 AM EDT Adrianna Coleman MA PHQ-2 Total Score 0 04/18/2025 7:16 AM HARPREETT Adrianna Coleman MA * PHQ-2 Total Score Answer Date of Assessment Author 0 04/18/2025 7:16 AM EDT Sirisha Coleman MA * Question Answer Date of Assessment Author Feeling Nervous, Anxious, or on Edge 0 03/27 7:16 AM EDT Adrianna Coleman MA Not Being Able to Stop or Co ntrol Worrying 0 04/18/2025 7:16 AM EDT Adrianna Coleman MA Worrying too Much About Diff erent [...] OMAYRA-7 Total Score 0 04/18/2025 7:16 AM HARPREETT Adrianna Coleman MA documented as of this [...] Sirisha Coleman MA documented in this encounter Medications at Time of Discharge atorvastatin (LIPITOR) 40 mg Oral TabletIndications :Hyperlipidemia with target LDL less than 130 Take 1 Tablet by mouth daily. 90 Tablet 3 04/18/2025 buPROPion (WELLBUTRIN XL) 150 mg Oral Tablet Sustained Release 24 hrIndications:Dep ression with anxiety Take 1 Tablet by mouth every morning. 30 Tablet 3 04/18/2025 busPIRone (BUSPAR) 7.5 mg Oral TabletIndications :Depression with anxiety Take 1 Tablet by mouth 2 times daily. 60 Tablet 5 04/18/2025 fluticasone propionate (FLONASE) 50 mcg/actuation Nasl [place], SuspensionIndicat ions:Cough, unspecified type 1 [place] by Nasal route daily. 1 Each 2 11/03/2023 hydroCHLOROthiazi de 12.5 mg Oral TabletIndications :HTN, goal below 140/90 Take 1 Tablet by mouth daily. 90 Tablet 3 04/18/2025 losartan (COZAAR) 100 mg Oral TabletIndications :HTN, goal below 140/90 Take 1 Tablet by mouth daily. 90 Tablet 3 04/18/2025 omeprazole (PRILOSEC) 40 mg Oral Capsule, Delayed [...] Description 05/25/2025 8:15 AM EDT Office Visit [place] [address] [address] [facility] [address] [place] [address] Fernando Green, DO [address] [address] [address] [place] [address] 06/15/2025 10:30 AM EDT Office Visit [facility] [address] [facility] [address] [place] [address] Zamzam Carlisle MD [address] [place] [address] documented as of this encounter Goals Goal Patient Goal Type Associated Problems Recent Progress Patient-Stated? Author Blood Pressure < 140/90 Blood Pressure 134/94(2024 4:31 PM EDT) No Hyacinth Lemus MA Maintain a healthy diet, exercise regularly and maintain an ideal body weight General No Lovetesfaye, Sherri Phillips [facility] documented as of this encounter Procedures Procedure Name Priority Date/Time Associated Diagnosis Comments THYROID STIMULATING HORMONE Routine 04/18/2025 11:15 AM EDT Medicare annual wellness visit, subsequent Screening for thyroid disorder T4, FREE (THYROXINE) Routine 04/18/2025 11:15 AM EDT Screening for thyroid disorder CORTISOL Routine 04/18/2025 11:15 AM EDT Obesity, Class I, BMI 30-34.9 LIPID SCREEN Routine 04/18/2025 11:15 AM EDT Hyperlipidemia with target LDL less than 130 COMPREHENSIVE METABOLIC PANEL Routine 04/18/2025 11:15 AM EDT Medicare annual wellness visit, subsequent HTN, goal below 140/90 Hyperlipidemia with target LDL less than 130 Prediabetes documented in this encounter Results * CORTISOL (04/18/2025 11:15 AM EDT) Cortisol 9.59 mcg/dL 04/18/2025 3:2 9 PM EDT [facility] [employer] Blood VENOUS BLOOD / Unknown Venipuncture / Unknown 04/18/2025 11:15 AM EDT 04/18/2025 11:15 AM EDT Narrative [employer] - 04/18/2025 3:29 PM EDT AM: 4.82 [...] Fernando Green DO CHEMISTRY ORDERABLES Final R [facility] Performing Organization Address [facility] Co de Phone Number [facility] [employer] [address] [place] [address] , [place] [address] * THYROID STIMULATING HORMONE (04/18/2025 11:15 AM EDT) TSH 3.170 0.270 - 4.200 mcIU/mL 04/18/2025 4:10 PM EDT [employer] [facility] Blood VENOUS BLOOD / Unknown Venipuncture / Unknown 04/18/2025 11:15 AM EDT 04/18/2025 11:15 AM EDT Narrative [facility] [employer] - 04/18/2025 4:10 PM EDT Ingestion of keyona doses of biotin (>5 mg/day) taken within 8 hours of drawing blood sample can interfere with this immunoassay test. Fernando Green DO CHEMISTRY ORDERABLES Final [facility] Performing Organization Address [facility] Co de Phone Number [facility] [employer] [address] [place] [address] , [place] [address] * T4, FREE (THYROXINE) (04/18/2025 11:15 AM EDT) Free T4 1.12 0.80 - 1.80 ng/dL 04/18/2025 4:10 PM EDT [facility] [employer] Blood VENOUS BLOOD / Unknown Venipuncture / Unknown 04/18/2025 11:15 AM EDT 04/18/2025 11:15 AM EDT Narrative [facility] [facility] - 04/18/2025 4:10 PM EDT Ingestion of keyona doses of biotin (>5 mg/day) taken within 8 hours of drawing blood sample can interfere with this immunoassay test. Fernando Green DO CHEMISTRY ORDERABLES Final R esult [facility] [employer] [facility] [address] [facility] , [place] [address] * (ABNORMAL) LIPID SCREEN (04/18/2025 11:15 AM EDT) Cholesterol 221(H) <200 mg/dL 04/18/2025 4:10 PM EDT [facility] [employer] Comment: < 200 Desirable 200 - 239 Borderline High >= 240 High Triglyceride 117 <150 mg/dL 04/18/2025 4:10 PM EDT [facility] [employer] Comment: < 150 Normal 150 - 199 Borderline High 200 - 499 High >= 500 Very High HDL 60 >=40 mg/dL 04/18/2025 4:10 PM EDT [facility] [employer] Comment: > 60 Optimal 40 - 60 Acceptable < 40 Low LDL Calculated 140(H) <100 mg/dL 04/18/2025 4:10 PM EDT [facility] [employer] Comment: < 100 Optimal 100 - 129 Near or above optimal 130 - 159 Borderline High 160 - 189 High >= 190 Very High The National Institutes of Health (NIH) equation is used for all lipid panels that report calculated LDL (LDL-C). Non-HDL-C Calculated 161(H) <=129 mg/dL 04/18/2025 4:10 PM EDT [facility] [employer] Comment: <130 Desirable 130-159 Above Desirable 160-189 Borderline High 190-219 High >= 220 Very High Fasting Specimen? Yes None 025 4:10 PM EDT [facility] [employer] Blood VENOUS BLOOD / Unknown Venipuncture / Unknown 04/18/2025 11:15 AM EDT 04/18/2025 11:15 AM EDT us Fernando Green DO CHEMISTRY ORDERABLES Final R esult [facility] [address] [facility], [place] [address] * (ABNORMAL) COMPREHENSIVE METABOLIC PANEL (04/18/2025 11:15 [...] 4:10 PM EDT [facility] AST 18 <=40 U/L 04/18/2025 4:10 PM EDT [facility] [employer] Alk Phos 69 36 - 123 U/L 04/18/2025 4:10 PM EDT [facility] [employer] eGFR (CKD-EPIcr 2020) 59(L) >=60 mL/min/1.7 3 m2 04/18/2025 4:10 PM EDT [facility] [employer] Comment:Estimated GFR was ca lculated using the CKD-EPIcr (2020) equation refit without race. The equation is recommended by the National Kidney Foundation - [place] [employer] Neph[employer] Task Force. Blood VENOUS BLOOD / Unknown Venipuncture / Unknown 04/18/2025 11:15 AM EDT 04/18/2025 11:15 AM EDT Fernando Green DO CHEMISTRY ORDERABLES Final R esult [facility] [employer] [address] [facility] , [address] [place] [id number] documented in this encounter Visit Diagnoses Diagnosis Medicare annual wellness visit, subsequent Routine general medical examination at a health care facility HTN, goal below 140/90 Unspecified essential hypertension Hyperlipidemia with target LDL less than 130 Other and unspecified hyperlipidemia Prediabetes Other abnormal glucose Screening for thyroid disorder Obesity, Class I, BMI 30-34.9 Obesity, unspecified HTN, goal below 140/90- Primary Unspecified essential hypertension Hyperlipidemia with target LDL less than 100 Other and unspecified hyperlipidemia documented in this encounter Orders Lab Orders Without Results Count Last Ordered D ate First Ordered Date CBC 1 04/18/2025 HEMOGLOBIN A1C 1 04/18/2025 documented in this encounter Care Teams Patternmaker Relationship Specialty Start Date End Date Fernando Green DO [address] [address] [address] [place] [address] PCP - General Internal Medicine 06/06/24 Rachna Talavera MD [address] [place] [address] Physician Internal Medicine-Nephrology 05/23/15 documented as of this encounter
--- OUTSIDE RECORDS SUMMARY | 2025-04-19 14:39 | XMS_ITS | Encounter Summary ---
Author Organization [place] [address] Care Team Providers Care Special Equipment Technician Name Role Phone Rachna Talavera MD Unavailable Fernando Green DO Primary Care Provider [phone] Encounter Details Date Type Department Care Team (Latest Contact Info) Description 04/19/2025 2:39 PM EDT - 04/19/2025 11:59 PM EDT Hospital Encounter [facility] M[facility] Draw Site [address] [place] [address] [address] [place] [address] HTN, goal below 140/90; Prediabetes Discharge Disposition: Home or Self Care Social [...] as of this encounter Functional Status * Is the [...] of Assessment Author No 04/18/2025 7:16 AM Sirisha Hernandez MA documented as of this encounter Mental Status * Because of a physical, mental or emotional condition, does this person have serious difficulty concentrating, remembering or making decisions? Answer Entry Date Author No 04/18/2025 7:16 AM Sirisha Hernandez MA documented in this encounter Medications at [...] 04/18/2025 fluticasone propionate (FLONASE) 50 mcg/actuation Nasl [place], SuspensionIndicat ions:Cough, unspecified type 1 [place] by Nasal route daily. 1 Each 2 11/03/2023 hydroCHLOROthiazi de 12.5 mg Oral TabletIndications :HTN, goal below 140/90 Take 1 Tablet by mouth daily. 90 Tablet 3 04/18/2025 losartan (COZAAR) 100 mg Oral TabletIndications :HTN, goal below 140/90 Take 1 Tablet by mouth daily. 90 Tablet 3 04/18/2025 metFORMIN (GLUCOPHAGE) 500 mg Oral Tablet 04/19/2025 omeprazole (PRILOSEC) 40 mg Oral Capsule, Delayed Release(E.C.) TAKE 1 CAPSULE BY MOUTH 2 TIMES DAILY. TAKE 30 MIN PRIOR TO BREAKFAST AND DINNER. 180 Capsule 3 01/17/2025 rosuvastatin (CRESTOR) 40 mg Oral Tablet 04/19/2025 documented as of this encounter Discharge Disposition Disposition Code Departure Means Destination Home or Self Care documented in this encounter Plan of Treatment Upcoming Encounters Date Type Department Care Team (Late st Contact Info) Description 05/25/2025 8:15 AM EDT Office Visit [facility] [address] [address] [address] [place] [address] Fernando Green, DO [address] [address] [address] [place] [id number] 06/15/2025 10:30 AM EDT Office Visit [facility] [address] [facility] [address] [place] [address] Zamzam Carlisle MD [address] [place] [address] documented as of this encounter Goals Goal Patient Goal Type Associated Problems Recent Progress Patient-Stated? Author Blood Pressure < 140/90 Blood Pressure 134/94(2024 4:31 PM EDT) No Hyacinth Lemus MA Maintain a healthy diet, exercise regularly and maintain an ideal body weight General No Sherri Arevalo RMA documented as of this encounter Procedures Procedure Name Priority Date/Time Associated Diagnosis Comments CBC Routine 04/19/2025 2:39 PM EDT HTN, goal below 140/90 HEMOGLOBIN A1C Routine 04/19/2025 2:39 PM EDT Prediabetes documented in this encounter Results * (ABNORMAL) HEMOGLOBIN A1C (04/19/2025 2:39 PM EDT) Hgb A1C 6.1(H) 4.2 - 5.6 % 04/19/2025 8:03 PM EDT [facility] Est. Avg Glucose 128 mg/dL 04/19/2025 8:03 PM EDT [facility] Blood VENOUS BLOOD / Unknown Venipuncture / Unknown 04/19/2025 2:39 PM EDT 04/19/2025 2:39 PM EDT Narrative [facility] - 04/19/2025 8:03 PM EDT REFERENCE RANGE: Normal: 4.0-5.6% Pre-diabetes: 5.7-6.4% Provisional diagnosis of diabetes: >6.4% Hgb F>10% and anything which shortens red cell survival, such as hemolytic anemia, or unstable hemoglobin variants such as HbSS, HbSC, or HbCC, will lower the HbA1c value associated with a given level of glycemic control. us Fernando Green DO CHEMISTRY ORDERABLES Final R esult [facility] [address] [facility] , [place] [address] * CBC (04/19/2025 2:39 PM EDT) WBC 8.2 3.7 - 10.3 x10(3)/mcL 04/19/2025 7:37 PM EDT [facility] RBC 4.52 3.90 - 5.20 x10(6)/mcL 04/19/2025 7:37 PM EDT [facility] Hgb 12.9 11.2 - 15.7 g/dL 04/19/2025 7:37 PM EDT [facility] Hct 40.6 34.0 - 45.0 % 04/19/2025 7:37 PM EDT [facility] MCV 89.8 80.0 - 100.0 fL 04/19/2025 7:37 PM EDT [facility] MCH 28.5 26.0 - 34.0 pg 04/19/2025 7:37 PM EDT [facility] MCHC 31.8 30.7 - 35.5 g/dL 04/19/2025 7:37 PM EDT [facility] RDW 13.2 <=14.9 % 04/19/2025 7:37 PM EDT [facility] Platelet 351 155 - 369 x10(3)/mcL 04/19/2025 7:37 PM EDT [facility] MPV 10.6 8.8 - 12.5 fL 04/19/2025 7:37 PM EDT [facility] Blood VENOUS BLOOD / Unknown Venipuncture / Unknown 04/19/2025 2:39 PM EDT 04/19/2025 2:39 PM EDT Fernando Green DO HEMATOLOGY ORDERABLES Final Result [facility] [address] [facility] , [place] [address] documented in this encounter Visit Diagnoses Diagnosis HTN, goal below 140/90 Unspecified essential hypertension Prediabetes Other abnormal glucose HTN, goal below 140/90- Primary Unspecified essential hypertension Hyperlipidemia with target LDL less than 100 Other and unspecified hyperlipidemia documented in this encounter Care Teams Special Equipment Technician Relationship Specialty Start Date End Date Fernando Green DO [address] [address] [address] [place] [address] PCP - General Internal Medicine 06/06/24 Rachna Talavera MD [address] [place] [address] Physician Internal Medicine-Nephrology 05/23/15 documented as of this encounter
--- OUTSIDE RECORDS SUMMARY | 2025-05-23 16:30 | XMS_ITS | Encounter Summary ---
Author Organization [place] [address] Care Team Providers Care Day Care Teacher Name Role Phone Rachna Talavera MD Unavailable Fernando Green DO Primary Care Provider [phone] Reason for Visit * Reason Comments Dysuria Encounter Details Date Type Department Care Team (Late Contact Info) Description 05/23/2025 4:30 PM EDT Office Visit [facility] [place] [facility] [facility] [address] [place] [id number] Wilmer Jiménez MD 8714 [facility] [address] [place] [address] Dysuria (Primary Dx) Social History Tobacco Use [...] Visit [facility] [place] [facility] [facility] [address] [place] [address] Fernando Green, [address] [place] [address] 06/15/2025 10:30 AM EDT Office Visit [facility] [place] [address] [place] [address] [address] [place] [address] Zamzam Carlisle MD [address] [place] [address] Pending Results Name Type Priority Associated Diagnoses Date /Time URINE CULTURE (NO STAIN) Microbiology Routine Dysuria 05/23/2025 4:42 PM EDT Scheduled Orders Name Type Priority Associated Diagnoses Orde r Schedule URINE CULTURE (NO STAIN) Microbiology Routine Dysuria 1 Occurrences starting 05/23/2025 until 05/23/2026 documented as of this encounter Goals Goal Patient Goal Type Associated Problems Recent Progress Patient-Stated? Author Blood Pressure < 140/90 Blood Pressure 134/94(2024 4:31 PM EDT) No Hyacinth Lemus MA Maintain a healthy diet, exercise regularly and maintain an ideal body weight General No Sherri Arevalo COUNT INCLUDES [facility] documented as of this encounter Procedures Procedure Name Priority Date/Time Associated Diagnosis Comments SEP URINALYSIS POC Routine 05/23/2025 4: 38 PM EDT Dysuria documented in this encounter Results * (ABNORMAL) SEP URINALYSIS POC (05/23/2025 4:38 PM EDT) UA Color POC Yellow Color 05/23/2025 4:40 PM EDT [facility] [place] UA Appear POC Cloudy(A) Clear 05/23/2025 4:40 PM EDT [facility] [place] 42 UA Gluc POC Negative Negative mg/dL [...] POINT OF CARE TEST ORDERABLES Final Result [place] [address] [address] [id number] documented in this encounter Visit Diagnoses Diagnosis Dysuria- Primary HTN, goal below 140/90- Primary Unspecified essential hypertension Hyperlipidemia with target LDL less than 100 Other and unspecified hyperlipidemia documented in this encounter Historical Medications * This list may reflect changes made after this encounter. Medication Sig Dispense Quantity Refills Last Filled Start D ate End Date rosuvastatin (CRESTOR) 40 mg Oral Tablet 04/19/2025 metFORMIN (GLUCOPHAGE) 500 mg Oral Tablet 04/19/2025 added in this encounter Care Teams Day Care Teacher Relationship Specialty Start Date End Date Fernando Green DO [address] [place] [address] [address] [place] [address] PCP - General Internal Medicine 06/06/24 Rachna Talavera MD [address] [place] [address] Physician Internal Medicine-Nephrology 05/23/15 documented as of this encounter
--- OUTSIDE RECORDS SUMMARY | 2025-05-24 12:13 | XMS_ITS | Encounter Summary ---
Author Organization [place] [address] Care Team Providers Care Master Rigger Name Role Phone Rachna Talavera MD Unavailable Fernando Green DO Primary Care Provider [phone] Encounter Details Date Type Department Care Team (Latest Contact Info) Description 04/18/2025 Results Follow-Up [facility] 42 PC 8726 [facility] 42 [address] [place] [address] Fernando Green DO [address] [place] [address] COMPREHENSIVE METABOLIC PANEL, LIPID SCREEN, T4, FREE (THYROXINE), Additional followed-up results: 3 Social History Tobacco Use Types Packs/Day Years [...] Worrying 0 04/18/2025 7:16 AM HARPREETT Adrianna Coleman MA Worrying too Much About Diff erent Things 0 04/18/2025 7:16 AM HARPREETT Adrianna Coleman MA Trouble Relaxing 0 04/18/2025 7:16 AM EDT W Adrianna rueda MA Being so Restless That it is Hard to Sit Still 0 04/18/2025 7:16 AM EDT Adrianna Coleman MA Becoming Easily Annoyed or Irritable 0 03/27 7:16 AM EDT Adrianna Coleman MA Feeling Afraid as if Somethi ng Awful Might Happen 0 04/18/2025 7:16 AM HARPREETT Adrianna Coleman MA OMAYRA-7 Total Score 0 04/18/2025 7:16 AM Adrianna Hernandez MA documented as of this encounter [...] Sirisha Coleman MA documented in this encounter Miscellaneous Notes * Telephone Encounter - Fernando Green DO - 04/19/2025 11:59 AM EDT I want patient to repeat Lipid panel in 8-10 weeks after taking medication every day. If levels notimproved back to near previous levels will have to increase medication dose documented in this encounter Plan of Treatment Upcoming Encounters Date Type Department Care Team (Late st Contact Info) Description 05/25/2025 8:15 AM EDT Office Visit [facility] [place] [facility] PC [address] [place] [address] [address] [place] [address] Fernando Green DO [address] [place] [address] [address] [place] [address] 06/15/2025 10:30 AM EDT Office Visit [facility] [place] [address] [facility] [address] [place] [address] Zamzam Carlisle MD [address] [place] [address] documented as of this encounter Goals Goal Patient Goal Type Associated Problems Recent Progress Patient-Stated? Author Blood Pressure < 140/90 Blood Pressure 134/94(2024 4:31 PM EDT) No Hyacinth Lemus MA Maintain a healthy diet, exercise regularly and maintain an ideal body weight General No Kimani Arevaloy Alan, RMGmaal documented as of this encounter Results * (ABNORMAL) HEMOGLOBIN A1C (04/19/2025 2:39 PM EDT) Pathologist [facility] Hgb A1C 6.1(H) 4.2 - 5.6 % 04/19/2025 8:03 PM EDT [facility] Est. Avg Glucose 128 mg/dL 04/19/2025 8:03 PM EDT [facility] Blood VENOUS BLOOD / Unknown Venipuncture / Unknown 04/19/2025 2:39 PM EDT 04/19/2025 2:39 PM EDT Narrative [facility] - 04/19/2025 8:03 PM EDT REFERENCE RANGE: Normal: 4.0-5.6% Pre-diabetes: 5.7-6.4% Provisional diagnosis of diabetes: >6.4% Hgb F>10% and anything which shortens red cell survival, such as hemolytic anemia, or unstable hemoglobin variants such as HbSS, HbSC, or HbCC, will lower the HbA1c value associated with a given level of glycemic control. us Fernando Green DO CHEMISTRY ORDERABLES Final R esult [facility] [address] [facility] , [place] [address] * CBC (04/19/2025 2:39 PM EDT) [facility] WBC 8.2 3.7 - 10.3 x10(3)/mcL 04/19/2025 7:37 PM EDT [facility] RBC 4.52 3.90 - 5.20 x10(6)/mcL 04/19/2025 7:37 PM EDT [facility] Hgb 12.9 11.2 - 15.7 g/dL 04/19/2025 7:37 PM EDT [facility] Hct 40.6 34.0 - 45.0 % 04/19/2025 7:37 PM EDT [facility] MCV 89.8 80.0 - 100.0 fL 04/19/2025 [...] Final Result [facility] [address] [facility] , [address] [place] [id number] documented in this encounter Visit Diagnoses Diagnosis HTN, goal below 140/90- Primary Unspecified essential hypertension Prediabetes Other abnormal glucose HTN, goal below 140/90- Primary Unspecified essential hypertension Hyperlipidemia with target LDL less than 100 Other and unspecified hyperlipidemia documented in this encounter Care Teams Master Rigger Relationship Specialty Start Date End Date Fernando Green DO [address] [place] [address] [address] [place] [address] PCP - General Internal Medicine 06/06/24 Rachna Talavera MD [address] [place] [address] Physician Internal Medicine-Nephrology 05/23/15 documented as of this encounter
--- OUTSIDE RECORDS SUMMARY | 2025-05-24 12:14 | XMS_ITS | Encounter Summary ---
Author Organization [place] [address] Care Team Providers Care Industrial Organization Manager Name Role Phone Rachna Talavera MD Unavailable Fernando Green DO Primary Care Provider [phone] Reason for Visit * Reason Onset Date Comments Other 04/19/2025 Faxing Recent La bs Encounter Details Date Type Department Care Team (Late st Contact Info) Description 04/19/2025 Telephone [facility] [place] [facility] PC 8726 [facility] [address] [place] [address] Fernando Green DO [address] [place] [address] Other (Faxing Recent Labs ) Social History Tobacco Use Types Packs/Day Years [...] Entry Date Author No 04/18/2025 7:16 AM HARPREETT Sirisha Coleman MA documented in this encounter Miscellaneous Notes * Telephone Encounter - Ban Neff - 04/19/2025 2:55 PM EDT Pt came in and completed TONIA I faxed last MD note and labs to [facility] at [phone] * Telephone Encounter - Wade Calderón MA - 04/19/2025 12:07 PM EDT Leola from [facility] called regarding labs to be faxed. Pt is an established patient at the hospital and was seen fro an OV today. Provider is requesting 'recent labs' to be sent. Hospital does not use EPIC. Will be calling patient to get authorization to have labs sent to [facility]. Will inform patient if they prefer having all labs sent to their MyChart and patient can print and fax labs to the hospital OR have patient come in and fill out an TONIA and provide verbal consent (Need to inquire with Saurabh) for us to send in fax. Fax for [facility]: [phone] Call back number: [phone] Spoke with patient and she will be coming to fill out TONIA form later today so that we can send the labs to [facility]. documented in this encounter Plan of Treatment Upcoming Encounters Date Type Department Care Team (Late st Contact Info) Description 05/25/2025 8:15 AM EDT Office Visit [facility] [place] [facility] PC 8726 [facility] [address] [place] [address] Fernando Green, [address] [place] [address] [address] [address] [place] [address] 06/15/2025 10:30 AM EDT Office Visit [facility] [address] [facility] [address] [place] [address] Zamzam Carlisle MD [address] [place] [address] documented as of this encounter Goals Goal Patient Goal Type Associated Problems Recent Progress Patient-Stated? Author Blood Pressure < 140/90 Blood Pressure 134/94(2024 4:31 PM EDT) No Hyacinth Lemus MA Maintain a healthy diet, exercise regularly and maintain an ideal body weight General No Loveless, Sherri Phillips, A documented as of this encounter Visit Diagnoses Not on filedocumented in this encounter Care Teams Industrial Organization Manager Relationship Specialty Start Date End Date Fernando Green DO [address] [facility] [address] [place] [address] PCP - General Internal Medicine 06/06/24 Rachna Talavera MD [address] [place] [address] Physician Internal Medicine-Nephrology 05/23/15 documented as of this encounter
--- OUTSIDE RECORDS SUMMARY | 2025-05-24 12:14 | XMS_ITS | Encounter Summary ---
Author [place] [address] Care Team Providers Care Mri Technician Name Role Phone Rachna Talavera MD Unavailable Fernando Green DO Primary Care Provider [phone] Encounter Details Date Type Department Care Team (Late Contact Info) Description 04/11/2025 Results Follow-Up [facility] PC [facility] [facility] [address] [place] [address] Fernando Green DO [address] [place] [address] MM MAMMO DIGITAL LORIE SCREEN BILAT Social History Tobacco Use Types Packs/Day Years [...] Karolina Turner MA documented in this encounter Plan of Treatment Upcoming Encounters Date Type Department Care Team (Late st Contact Info) Description 05/25/2025 8:15 AM EDT Office Visit [facility] [place] [facility] [facility] [address] [place] [address] Fernando Green DO [address] [place] [address] [address] [place] [address] 06/15/2025 10:30 AM EDT Office Visit [facility] [address] [facility] [address] [place] [address] Zamzam Carlisle MD [address] [place] [address] documented as of this encounter Goals Goal Patient Goal Type Associated Problems Recent Progress Patient-Stated? Author Blood Pressure < 140/90 Blood Pressure 134/94(2024 4:31 PM EDT) Hyacinth Dyer MA Maintain a healthy diet, exercise regularly and maintain an ideal body weight General No Loveless, JONATHAN Jackson documented as of this encounter Visit Diagnoses Not on filedocumented in this encounter Care Teams Mri Technician Relationship Specialty Start Date End Date Fernando Green DO [address] [address] [address] [address] [place] [address] PCP - General Internal Medicine 06/06/24 Rachna Talavera MD [address] [place] [address] Physician Internal Medicine-Nephrology 05/23/15 documented as of this encounter
--- OUTSIDE RECORDS SUMMARY | 2025-05-24 12:14 | XMS_ITS | Encounter Summary ---
Author Organization [place] [address] Care Team Providers Care Campus Security Officer Name Role Phone Rachna Talavera MD Unavailable Fernando Green DO Primary Care Provider [phone] Encounter Details Date Type Department Care Team (Late Contact Info) Description 04/21/2025 Results Follow-Up Jun 42 PC 8726 [facility] [address] [place] [address] Fernando Green DO [address] [place] [address] CBC, HEMOGLOBIN A1C Social History Tobacco Use Types Packs/Day Years [...] Sirisha Coleman MA documented in this encounter Plan of Treatment Upcoming Encounters Date Type Department Care Team (Late st Contact Info) Description 05/25/2025 8:15 AM EDT Office Visit [facility] 42 PC 8726 [email or web address] [address] [place] [address] Fernando Green DO [address] [place] [address] [address] [place] [address] 06/15/2025 10:30 AM EDT Office Visit [facility] [place] [address] [facility] [address] [place] [address] Zamzam Carlisle MD [address] [place] [address] documented as of this encounter Goals Goal Patient Goal Type Associated Problems Recent Progress Patient-Stated? Author Blood Pressure < 140/90 Blood Pressure 134/94(2024 4:31 PM EDT) Hyacinth Dyer MA Maintain a healthy diet, exercise regularly and maintain an ideal body weight General No Loveless, JONATHAN Jackson documented as of this encounter Visit Diagnoses Not on filedocumented in this encounter Care Teams Campus Security Officer Relationship Specialty Start Date End Date Fernando Green DO [address] [place] [address] PCP - General Internal Medicine 06/06/24 Rachna Talavera MD [address] [place] [address] Physician Internal Medicine-Nephrology 05/23/15 documented as of this encounter
--- OUTSIDE RECORDS SUMMARY | 2025-05-24 12:14 | XMS_ITS | Encounter Summary ---
Author Organization [place] [address] Care Team Providers Care Radius Grinder Name Role Phone Rachna Talavera MD Unavailable Viji Hinojosa PA-C Primary Care Provider Fernando Green DO Primary Care Provider [phone] Viji Hinojosa PA-C Primary Care Provider Fernando Green DO Primary Care Provider [phone] Sergio Cramer MD Primary Care Provider [phone] Fernando Green DO Primary Care Provider [phone] Encounter Details Date Type Department Care Team (Late st Contact Info) Description 06/15/2017 Orders Only [facility] [address] [facility] [address] [place] [address] Miguel Benavidez MD [address] [place], [place] [id number] Social History Tobacco Use Types Packs/Day Years Used Date Smoking Tobacco: Never Smokeless Tobacco: Never Alcohol Use Standard Drinks/Week Comments Yes 1 (1 standard drink = 0.6 oz pur e alcohol) once per month Sexually Active Control Partners Comments Yes Surgical [...] on file documented as of this encounter Plan of Treatment Upcoming Encounters Date Type Department Care Team (Late st Contact Info) Description 05/25/2025 8:15 AM EDT Office Visit [facility] [place] [facility] [facility] [address] [place] [address] Fernando Green, DO [address] [place] [address] 06/15/2025 10:30 AM EDT Office Visit [facility] [place] 7[address] [facility] [address] [place] [address] Zamzam Carlisle MD [address] [place] [address] documented as of this encounter Goals Goal Patient Goal Type Associated Problems Recent Progress Patient-Stated? Author Blood Pressure < 140/90 Blood Pressure 134/94(2024 4:31 PM EDT) No Hyacinth Lemus MA Maintain a healthy diet, exercise regularly and maintain an ideal body weight General No Sherri Arevalo RMA documented as of this encounter Procedures Procedure Name Priority Date/Time Associated Diagnosis Comments GMED EGD-COLONOSCOPY Routine 06/15/2017 12:00 PM EDT documented in this encounter Results * GMED EGD-COLONOSCOPY (06/15/2017 12:00 PM EDT) 06/15/2017 12:0 0 PM EDT Impressions [facility] - 06/15/2017 12:29 PM EDT Plan: Screening Colonoscopy in 10 years. This section is an excerpt of the full report. Miguel Benavidez MD GI PROCEDURE ORDERABLES Fin al Result [facility] [address] [place] [address] documented in this encounter Visit Diagnoses Not on filedocumented in this encounter Additional Health Concerns Infection Onset Date Last Indicated Resolved Time COVID-19 11/24/2023 11/24/2023 12/14/2023 10:1 2 PM EST documented as of this encounter Care Teams Radius Grinder Relationship Specialty Start Date End Date Viji Hinojosa PA-C [address] [place] [id number] PCP - General Physician Mid Level Business Analyst 06/15/17 08/24/17 Fernando Green DO [address] [place] [address] PCP - General Internal Medicine 08/25/17 10/13/17 Viji Hinojosa PA-C [address] [place] [id number] PCP - General Physician Mid Level Business Analyst 10/14/17 10/16/17 Fernando Green DO [address] [place] [address] PCP - General Internal Medicine 10/17/17 01/28/21 Sergio Cramer MD [address] [place] [address] PCP - General Family Medicine 01/29/21 06/05/24 Fernando Green DO [address] [place] [address] PCP - General Internal Medicine 06/06/24 Rachna Talavera MD [address] [place], [place] [id number] Physician Internal Medicine-Nephrology 05/23/15 documented as of this encounter
--- OUTSIDE RECORDS SUMMARY | 2025-05-24 12:14 | XMS_ITS | Clinical Summary ---
Author Organization [facility] Phone Care Team Providers Care Automobile Technician Name Role Phone Unavailable Unavailable Conditions or Problems No information available. Medications No information available. Medications Administered No information available. Allergies, Adverse Reactions, Alerts No information available. Results No information available. Plan of Care No information available. Procedures No information available. Vital Signs No information available. Immunizations No information available. Advance Directives No information available.
--- OUTSIDE RECORDS SUMMARY | 2025-05-24 12:14 | XMS_ITS | Encounter Summary ---
Author Organization [place] [address] Care Team Providers Care Network Solutions Architect Name Role Phone Rachna Talavera MD Unavailable Fernando Green DO Primary Care Provider [phone] Reason for Visit * Reason Onset Date Comments Central Patient Navigator Outreach 04/17/2025 AWV Questionnaire Encounter Details Date Type Department Care Team (Late st Contact Info) Description 04/17/2025 Patient Outreach [facility] [address] [place] [address] Fernando Green DO [address] [address] [address] [place] [address] Central Patient Navigator Outreach (AWV Questionnaire/) Social History Tobacco Use Types Packs/Day Years [...] Karolina Turner MA documented in this encounter Progress Notes * Niki Wen - 04/17/2025 5:10 PM EDT Patient Outreach: Pre-Visit Questionnaires Attempt Count: inbound Care Gaps Addressed dictionary editor: Medicare Questionnaire Outcome:Medicare Questionnaire completed Call back number: [phone] * Kamila Caro - 04/17/2025 3:58 PM EDT Patient Outreach: Pre-Visit Questionnaires Attempt Count: 1st Care Gaps Addressed dictionary editor: Medicare Questionnaire Outcome:Left message to return call at and MyChart Message Sent Call back number: [phone] documented in this encounter Plan of Treatment Upcoming Encounters Date Type Department Care Team (Late st Contact Info) Description 05/25/2025 8:15 AM EDT Office Visit [facility] [place] [address] [address] [address] [place] [address] Fernando Green DO [address] [place] [address] [place] [address] 06/15/2025 10:30 AM EDT Office Visit [facility] [address] [facility] [address] [place] [address] Zamzam Carlisle MD [address] [place] [address] documented as of this encounter Goals Goal Patient Goal Type Associated Problems Recent Progress Patient-Stated? Author Blood Pressure < 140/90 Blood Pressure 134/94(2024 4:31 PM EDT) No Hyacinth Lemus MA Maintain a healthy diet, exercise regularly and maintain an ideal body weight General No Sherri Arevalo RMA documented as of this encounter Visit Diagnoses Not on filedocumented in this encounter Care Teams Network Solutions Architect Relationship Specialty Start Date End Date Fernando Green DO [address] [place] [address] [address] [place] [address] PCP - General Internal Medicine 06/06/24 Rachna Talavera MD [address] [place] [address] Physician Internal Medicine-Nephrology 05/23/15 documented as of this encounter
--- OUTSIDE RECORDS SUMMARY | 2025-05-24 12:14 | XMS_ITS | Clinical Summary ---
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 fluticasone propionate (FLONASE) 50 mcg/actuation Nasl [place], SuspensionIndica tions:Cough, unspecified type 1 [place] by Nasal route daily. 1 Each 2 4 Active omeprazole (PRILOSEC) 40 mg Oral Capsule, Delayed Release(E.C.) TAKE 1 CAPSULE BY MOUTH 2 TIMES DAILY. TAKE 30 MIN PRIOR TO BREAKFAST AND DINNER. 180 Capsule 3 5 Active atorvastatin (LIPITOR) 40 mg Oral TabletIndication s:Hyperlipidemia with target LDL less than 130 Take 1 Tablet by mouth daily. 90 Tablet 3 5 Active Additional Information Patient not taking.Reason: Advised by Physician, Reported on 05/23/2025 hydroCHLOROthiaz caitlin 12.5 mg Oral TabletIndication s:HTN, goal below 140/90 Take 1 Tablet by mouth daily. 90 Tablet 3 5 Active buPROPion (WELLBUTRIN XL) 150 mg Oral Tablet Sustained Release 24 hrIndications:De pression with anxiety Take 1 Tablet by mouth every morning. 30 Tablet 3 5 Active Additional Information Patient not taking.Reason: Pt electing to not take the medication, Reported on 05/23/2025 busPIRone (BUSPAR) 7.5 mg Oral TabletIndication s:Depression with anxiety Take 1 Tablet by mouth 2 times daily. 60 Tablet 5 5 Active Additional Information Patient not taking.Reason: Pt electing to not take the medication, Reported on 05/23/2025 losartan (COZAAR) 100 mg Oral TabletIndication s:HTN, goal below 140/90 Take 1 Tablet by mouth daily. 90 Tablet 3 5 Active metFORMIN (GLUCOPHAGE) 500 mg Oral Tablet 5 Active rosuvastatin (CRESTOR) 40 mg Oral Tablet 5 Active nitrofurantoin, macrocrystal-mon ohydrate, (MACROBID) 100 mg Oral CapsuleIndicatio ns:Dysuria Take 1 Capsule by mouth 2 times daily for 5 days. 10 Capsule 5 05/28/20 25 Active Active Problems Problem Noted Date Diagnosed Date Family history of coagulation disorder 4 Overview (11/02/2023): Completed blood work in 2014; Negative workup per patient report. Hypercholesteremia 12/04/2016 Assessment & Plan (05/25/2018 8:23 PM EDT): Tolerating statin. meds refilled. Due for monitoring labs Chronic thoracic back pain 12/04/2016 CKD (chronic kidney disease), stage III 07/05/20 15 Essential hypertension, benign 05/23/2015 Assessment & Plan (05/25/2018 8:27 PM EDT): Was changed to losartan on 05/18 but stopped after about 2 days of taking stating that she felt that it may have been causing her to not be able to empty her bladder completely (denies other urinary symptoms) She does have CKD and states that other medications have caused this problem. She also reports being on vacation during that time and maybe not being hydrated enough. Enc to restart medication and get her labs completed. If becomes symptomatic again, instructed to d/c the medication and call office for alternative. Did not have any issues with her valsartan. 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 Edema Depression Resolved Problems Problem Noted Date Diagnosed Date Resolved Date Chest pain 10/08/2015 11/11/2021 Hyperlipidemia 05/23/2015 12/04/2016 Chronic back pain 02/21/2015 12/04/2016 Encounters Date Type Department Care Team Description 05/23/2025 4:30 PM EDT Office Visit [address] [place] [address] Wilmer Jiménez MD Dysuria (Primary Dx) 04/21/2025 Results Follow-Up [address] [place] [address] [address] [place] [address] Fernando Green, CBC, HEMOGLOBIN A1C 04/19/2025 2:39 PM EDT - 04/19/2025 11:59 PM EDT Hospital Encounter [address] [address] HTN, goal below 140/90; Prediabetes Discharge Disposition: Home or Self Care 04/19/[address] [place] [address] Fernando Green, DO Other (Faxing Recent Labs ) 04/18/2025 11:14 AM EDT - 04/18/2025 11:59 PM EDT Hospital Encounter [address] [address] Medicare annual wellness visit, subsequent; HTN, goal below 140/90; Hyperlipidemia with target LDL less than 130; Prediabetes; Screening for thyroid disorder; Obesity, Class I, BMI 30-34.9 Discharge Disposition: Home or Self Care 04/18/2025 10:30 AM EDT Office Visit [address] [place] [address] Fernando Green DO Medicare annual wellness visit, subsequent (Primary Dx); HTN, goal below 140/90; Hyperlipidemia with target LDL less than 130; Screening for thyroid disorder; Urinary frequency; Obesity, Class I, BMI 30-34.9; Prediabetes; Depression with anxiety 04/18/2025 Results Follow-Up [address] [place] [address] Fernando Green DO COMPREHENSIVE METABOLIC PANEL, LIPID SCREEN, T4, FREE (THYROXINE), Additional followed-up results: 3 04/17/2025 Patient Outreach [facility] [address] [place], [place] [id number] Fernando Green DO Central Patient Navigator Outreach (AWV Questionnaire/) 04/11/2025 9:47 AM EDT - 04/11/2025 11:59 PM EDT Hospital Encounter [facility] Mammography [address] [id number] Fernando Green DO Encounter for screening mammogram for malignant neoplasm of breast Discharge Disposition: Home or Self Care 04/11/2025 Results Follow-Up [address] [place] [address] Fernando Green DO MM MAMMO DIGITAL LORIE SCREEN BILAT from Last 3 Months Immunizations Immunization Administration Dates Next Due Influenza Patient Reported 08/03/2016 Influenza Vaccine, Unspecified Formulation 08/03,08/26/2015 Pfizer SARS-CoV-2 Vaccine 12+ Yrs (Purple Cap) 0 02/25/2021,02/04/2021 Pneumococcal Polysaccharide 23 Valent 11/07/2015 Tdap 11/24/2013 Surgical History Surgery Date Site/Laterality Comments TUBAL LIGATION 10/26/1991 - 10/25/1992 CHOLECYSTECTOMY 10/26/2002 - 10/25/2003 UPPER GASTROINTESTINAL ENDOSCOPY 10/08/2015 N/A Esophagogastroduodenos copy with biopsy; Surgeon: Miguel Benavidez MD; Location: ED ENDOSCOPY; Service: Endoscopy BREAST BIOPSY 01/06/2022 Left UOQ COLONOSCOPY 2014 SECTION 04/1989 ABDOMEN SURGERY Not sure Gall bladder removed Medical History Medical History Date Comments Kidney disease In 2014 Neuropathy multifocal motor neuropathy Hypercholesteremia Hypertension Not sure years ago GERD (gastroesophageal reflux disease) Not sure years ago Hypercholesteremia 12/04/2016 Chronic thoracic back pain 12/04/2016 Depression 10/2020 Not sure why Anxiety 12/2019 Since the pandem ic Family History Medical History Relation Name Comments Heart Disease Brother Ishan dailey Other Brother Ishan dailey Blood clots in legs Diabetes Father Brody Dailey Heart Attack Father Brody Dailey Heart Disease Father Brody Dailey High Blood Pressure Father Brody Dailey Hypertension Father Brody Dailey Cancer Mother Caryl Asim Skin cancer Colon Polyps Mother Caryl Dailey Irritable Bowel Syndrome Mother Caryl Asim Kidney Disease Mother Caryl Asim Other Mother Caryl Asim factor V leid en Thyroid Disease Mother Caryl Asim Allergies Neg Hx Bleeding Prob Neg Hx Colon Cancer Neg Hx Esophageal Cancer Neg Hx Hearing Loss Neg Hx Migraines Neg Hx Relation Name Status Comments Brother Ishan dailey Father Brody Dailey Mother Caryl Dailey Alive Social History Tobacco Use Types Packs/Day Years [...] file Not on file Not on file Obstetrics History Para Term AB IAB SAB Ectopic Multiple Livin g Live Births 2 2 2 2 2 Date Outcome GA Total Labor Labor/2nd/3rd Weight Sex Type Anes PTL Fariba A1 A5 Name Clin F CSP Living F SUCCESS FUL V Living Last Filed Vital Signs Vital Sign Reading Time Taken Comments Blood Pressure 134/94 05/23/2025 4:31 PM EDT Pulse 85 05/23/2025 4:31 PM EDT Temperature 36.8 C (98.2 F) 05/23/2025 4:31 PM EDT Respiratory Rate 14 04/18/2025 10:24 AM EDT Oxygen Saturation 98% 05/23/2025 4:31 PM EDT Inhaled Oxygen Concentration - - Weight 76.3 kg (168 lb 3.2 oz) 05/23/2025 4:31 P M EDT Height 157.5 cm (5' 2 ) 05/23/2025 4:31 PM EDT Body Mass Index 30.76 05/23/2025 4:31 PM EDT Plan of Treatment Upcoming Encounters Date Type Department Care Team (Late st Contact Info) Description 05/25/2025 8:15 AM EDT Office Visit [facility] [address] [place] [address] Fernando Green F, DO [address] [place] [address] 06/15/2025 10:30 AM EDT [facility] Visit [facility] [address] [place] [address] Zamzam Carlisle MD [address] [phone] Health Maintenance Due Date Last Done Comments HPV/Pap Cotest 1993 Cologuard 2008 FIT 2008 Sigmoidoscopy 2008 Virtual Colonography 2008 Zoster (1 of 2) 2013 Pneumococcal Vaccine 50+ (2 of 2 - PCV) 11/07/2016 11/07/2015 Cervical Cancer Screening 01/10/2022 Pap Smear 01/10/2022 01/10/2019, 12/24, 11/02/2015, Additional history exists DTaP/TDaP/Td (2 - Td or Tdap) 11/24/2023 11/24/2013 COVID-19 Vaccine ( - season) 2024 02/25/2021, 02/04/2021 Influenza Vaccine (#1) 2025 9, 08/25/2017 (Declined), 08/03/2016, Additional history exists Wellness Exam Medicare 04/19/2026 04/18/2025 Breast Cancer Screening 04/11/2027 04/11/20, 03/18/2024, 02/23/2023, Additional history exists Colon Cancer Screening 06/15/2027 Colonoscopy 06/15/2027 06/15/2017, 11/24/2013 Hepatitis C Screening Completed 08/28/2017 Hepatitis B Vaccine Aged Out No longe r eligible based on patient's age to complete this topic Meningococcal B Vaccine Aged Out No l onger eligible based on patient's age to complete this topic Goals Goal Patient Goal Type Associated Problems Recent Progress Patient-Stated? Author Blood Pressure < 140/90 Blood Pressure 134/94(2024 4:31 PM EDT) No Hyacinth Lemus MA Maintain a healthy diet, exercise regularly and maintain an ideal body weight General No Sherri Arevalo RMA Procedures Procedure Name Priority Date/Time Associated Diagnosis Comments SEP URINALYSIS POC Routine 05/23/2025 4: 38 PM EDT Dysuria HEMOGLOBIN A1C Routine 04/19/2025 2:39 PM EDT Prediabetes CBC Routine 04/19/2025 2:39 PM EDT HTN, goal below 140/90 SEP URINALYSIS POC Routine 04/18/2025 11 :17 AM EDT Urinary frequency CORTISOL Routine 04/18/2025 11:15 AM EDT Obesity, Class I, BMI 30-34.9 THYROID STIMULATING HORMONE Routine 04/18/2025 11:15 AM EDT Medicare annual wellness visit, subsequent Screening for thyroid disorder T4, FREE (THYROXINE) Routine 04/18/2025 11:15 AM EDT Screening for thyroid disorder LIPID SCREEN Routine 04/18/2025 11:15 AM EDT Hyperlipidemia with target LDL less than 130 COMPREHENSIVE METABOLIC PANEL Routine 04/18/2025 11:15 AM EDT Medicare annual wellness visit, subsequent HTN, goal below 140/90 Hyperlipidemia with target LDL less than 130 Prediabetes URINE CULTURE (NO STAIN) Routine 04/18/2025 11:13 AM EDT Urinary frequency MM MAMMO DIGITAL LORIE SCREEN BILAT Routine 04/11/2025 9:52 AM EDT Encounter for screening mammogram for malignant neoplasm of breast [facility] COPYWR[employer] CYTOLOGY REQUEST (PAP ONLY) Routine 01/10/2019 2:10 PM EDT Well woman exam with routine gynecological exam HCV ANTIBODY SCREEN W/ REFLEX Routine 08/28/2017 5:12 PM EDT Need for hepatitis C screening test [facility] EGD-COLONOSCOPY Routine 06/15/2017 12:00 PM EDT from Last 3 Months or Most Recently Relevant to Health Maintenance Results * (ABNORMAL) SEP URINALYSIS POC (05/23/2025 4:38 PM EDT) Only the most recent of2 resultswithin the time period is included. UA Color POC Yellow Color 05/23/2025 4:40 PM EDT [facility] 42 UA Appear POC Cloudy(A) Clear 05/23/2025 4:40 PM EDT [facility] [place] [facility] UA Gluc POC Negative Negative mg/dL 05/23/2025 4:40 PM EDT [facility] [place] [facility] UA Bili POC Negative Negative 05/23/2025 4:40 PM EDT [facility] [place] 42 UA Ketones POC Negative Negative mg/dL 05/23/2025 4:40 PM EDT [facility] [place] [facility] UA SG POC 1.025 1.001 - 1.035 no units 05/23/2025 4:40 PM EDT [facility] [place] 42 UA Blood POC Small(A) Negative 05/23/2025 4:40 PM EDT [facility] [place] 42 UA pH POC 5.0 5.0 - 8.0 pH 05/23/2025 4:40 PM EDT [facility] 42 UA Protein POC Negative Negative mg/dL 05/23/2025 4:40 PM EDT [facility] [place] 42 UA Urobilinogen POC 0.2 0.2, 1.0 05/23/2025 4:40 PM EDT [facility] [place] 42 UA Nitrite POC Negative Negative 05/23/2025 4:40 PM EDT [facility] [place] 42 UA Leuk Est POC Negative Negative 4:40 PM EDT [facility] [place] 42 Urine STRUCTURE OF URINARY TRACT PROPER / Unknown 05/23/2025 4:38 PM EDT 05/23/2025 4:40 PM EDT Wilmer Jiménez MD POINT OF CARE TEST ORDERABLES Final Result [address] [address] [address] [place] [address] * CBC (04/19/2025 2:39 PM EDT) WBC [...] 04/19/2025 7:37 PM EDT [facility] RDW 13.2 <=14.9 % 04/19/2025 7:37 PM EDT [facility] Platelet 351 155 - 369 x10(3)/mcL 04/19/2025 7:37 PM EDT [facility] MPV 10.6 8.8 - 12.5 fL 04/19/2025 7:37 PM EDT [facility] Blood VENOUS BLOOD / Unknown Venipuncture / Unknown 04/19/2025 2:39 PM EDT 04/19/2025 2:39 PM EDT Fernando Green DO HEMATOLOGY ORDERABLES Final Result [facility] [address] [place] [id number] * (ABNORMAL) HEMOGLOBIN A1C (04/19/2025 2:39 PM EDT) Hgb A1C 6.1(H) 4.2 - 5.6 % 04/19/2025 8:03 PM EDT [facility] Est. Avg Glucose 128 mg/dL 04/19/2025 8:03 PM EDT [facility] Blood VENOUS BLOOD / Unknown Venipuncture / Unknown 04/19/2025 2:39 PM EDT 04/19/2025 2:39 PM EDT Narrative [facility] [employer] - 04/19/2025 8:03 PM EDT REFERENCE RANGE: Normal: 4.0-5.6% Pre-diabetes: 5.7-6.4% Provisional diagnosis of diabetes: >6.4% Hgb F>10% and anything which shortens red cell survival, such as hemolytic anemia, or unstable hemoglobin variants such as HbSS, HbSC, or HbCC, will lower the HbA1c value associated with a given level of glycemic control. Fernando Green DO CHEMISTRY ORDERABLES Final R esult Performing Organization Address [facility] [[email or web address]] de Phone Number [facility] [employer] [address] , [place] [address] * THYROID STIMULATING HORMONE (04/18/2025 11:15 AM EDT) Pathologist [facility] TSH 3.170 0.270 - 4.200 mcIU/mL 04/18/2025 4:10 PM EDT [facility] Blood VENOUS BLOOD / Unknown Venipuncture / Unknown 04/18/2025 11:15 AM EDT 04/18/2025 11:15 AM EDT Narrative [employer] [facility] - 04/18/2025 4:10 PM EDT Ingestion of keyona doses of biotin (>5 mg/day) taken within 8 hours of drawing blood sample can interfere with this immunoassay test. Fernando Green DO CHEMISTRY ORDERABLES Final [facility] Performing Organization Address [facility] [[email or web address]] de Phone Number [facility] [employer] [address] , [place] [address] * T4, FREE (THYROXINE) (04/18/2025 11:15 AM EDT) Pathologist [facility] Free T4 1.12 0.80 - 1.80 ng/dL 04/18/2025 4:10 PM EDT [facility] Blood VENOUS BLOOD / Unknown Venipuncture / Unknown 04/18/2025 11:15 AM EDT 04/18/2025 11:15 AM EDT Narrative [facility] - 04/18/2025 4:10 PM EDT Ingestion of keyona doses of biotin (>5 mg/day) taken within 8 hours of drawing blood sample can interfere with this immunoassay test. Fernando Green DO CHEMISTRY ORDERABLES Final R esult Performing Organization Address [email or web address]] de Phone Number [facility] [address] , [address] [place] [id number] * CORTISOL (04/18/2025 11:15 AM EDT) Cortisol 9.59 mcg/dL 04/18/2025 3:2 9 PM EDT [facility] Blood VENOUS BLOOD / Unknown Venipuncture / Unknown 04/18/2025 11:15 AM EDT 04/18/2025 11:15 AM EDT Narrative [facility] - 04/18/2025 3:29 PM EDT AM: 4.82 [...] ORDERABLES Final R esult Performing Organization Address [facility] Co de Phone Number [facility] [address] , [place] [address] * (ABNORMAL) LIPID SCREEN (04/18/2025 11:15 AM EDT) Cholesterol 221(H) <200 mg/dL 04/18/2025 4:10 PM EDT [facility] Comment: < 200 Desirable 200 - 239 Borderline High >= 240 High Triglyceride 117 <150 mg/dL 04/18/2025 4:10 PM EDT [facility] [employer] [facility] Comment: < 150 Normal 150 - 199 Borderline High 200 - 499 High >= 500 Very High HDL 60 >=40 mg/dL 04/18/2025 4:10 PM EDT [facility] Comment: > 60 Optimal 40 - 60 Acceptable < 40 Low LDL Calculated 140(H) <100 mg/dL 04/18/2025 4:10 PM EDT [facility] [employer] Comment: < 100 Optimal 100 - 129 Near or above optimal 130 - 159 Borderline High 160 - 189 High >= 190 Very High The National Institutes of Health (NIH) equation is used for all lipid panels that report calculated LDL (LDL-C). Non-HDL-C Calculated 161(H) <=129 mg/dL 04/18/2025 4:10 PM EDT [facility] [employer] Comment: <130 Desirable 130-159 Above Desirable 160-189 Borderline High 190-219 High >= 220 Very High Fasting Specimen? Yes None 025 4:10 PM EDT [facility] [employer] Blood VENOUS BLOOD / Unknown Venipuncture / Unknown 04/18/2025 11:15 AM EDT 04/18/2025 11:15 AM EDT us Fernando Green DO CHEMISTRY ORDERABLES Final R esult [facility] [employer] [address] , [place] [address] * (ABNORMAL) COMPREHENSIVE METABOLIC PANEL (04/18/2025 11:15 AM EDT) Sodium 141 136 - 145 mmol/L 04/18/2025 4:10 PM EDT [facility] [employer] [facility] Potassium 3.8 3.5 - 5.0 mmol/L 04/18/2025 4:10 PM EDT [facility] [employer] Chloride 108(H) 98 - 107 mmol/L 04/18/2025 4:10 PM EDT [facility] [employer] Total CO2 20(L) 22 - 29 mmol/L 04/18/2025 4:10 PM EDT [facility] [employer] Anion Gap 13 7 - 16 mmol/L 04/18/2025 4:10 PM EDT [facility] Calcium 9.4 8.8 - 10.4 mg/dL 04/18/2025 4:10 PM EDT [facility] Glucose Lvl 121(H) 70 - 99 mg/dL 04/18/2025 4:10 PM EDT [facility] BUN 21 8 - 23 mg/dL 04/18/2025 4:10 PM EDT [facility] Creatinine 1.06 0.51 - 1.30 mg/dL 04/18/2025 4:10 PM EDT [facility] Albumin 4.3 3.2 - 4.6 gm/dL 04/18/2025 4:10 PM EDT [facility] Total Protein 7.1 6.4 - 8.3 gm/dL 04/18/2025 4:10 PM EDT [facility] Bili Total 0.4 0.2 - 1.3 mg/dL 04/18/2025 4:10 PM EDT [facility] ALT 29 <=41 U/L 04/18/2025 4:10 PM EDT [facility] AST 18 <=40 U/L 04/18/2025 4:10 PM EDT [facility] Alk Phos 69 36 - 123 U/L 04/18/2025 4:10 PM EDT [facility] eGFR (CKD-EPIcr 2020) 59(L) >=60 mL/min/1.7 3 m2 04/18/2025 4:10 PM EDT [facility] Comment:Estimated GFR was ca lculated using the CKD-EPIcr (2020) equation refit without race. The equation is recommended by the National Kidney Foundation - [place] [employer]ph[employer] Task Force. Blood VENOUS BLOOD / Unknown Venipuncture / Unknown 04/18/2025 11:15 AM EDT 04/18/2025 11:15 AM EDT us Fernando Green DO CHEMISTRY ORDERABLES Final R esult [facility] [address] [facility] , [address] [place] [id number] * URINE CULTURE (NO STAIN) (04/18/2025 11:13 AM EDT) Culture Multiple bacterial species isolated from urine consistent with urogenital commensal organisms. 04/20/2025 8:06 AM EDT [facility] Urine STRUCTURE OF URINARY TRACT PROPER / Unknown 04/18/2025 11:13 AM EDT 04/18/2025 11:13 AM EDT Fernando Green DO MICROBIOLOGY - GENERAL ORDER STEPH Final Result [facility] [address] [facility] , [place] [address] * MM MAMMO DIGITAL LORIE SCREEN BILAT (04/11/2025 9:52 AM EDT) Anatomical Region Laterality Modality Breast Bilateral Mammography 04/11/2025 9:52 AM EDT Impressions 04/11/2025 10:15 AM EDT Benign ([id number]) RECOMMENDATION: Routine Screening Mammogram in 1 Year Bilateral . . COMMENTS: DISCLAIMER *The patient was notified by MyChart or mail of the results for this examination. *The patient's information was entered into a reminder system with a target due date for the next breast imaging, in accordance with the [place] [employer] and the Society of [...] for screening mammogram for malignant neoplasm of [id number] COMPARISON STUDIES: Compared with prior studies the most recent being 03/18/2024 MM MAMMO DIGITAL LORIE SCREEN BILAT at [facility] 02/23/2023 MM MAMMO DIGITAL LORIE DIAGN BILAT at [facility] 12/30/2021 MM MAMMO DIGITAL LORIE DIAGN BILAT at [facility] TISSUE DENSITY: There are scattered areas of fibroglandular density. FINDINGS: No mammographic evidence of malignancy. Stable tissue pattern with biopsy marker in the left breast. Procedure Note Keith Orantes MD - 04/11/2025 EXAM: MM MAMMO DIGITAL LORIE SCREEN BILAT EXAM DATE: 04/11/2025 9:52 AM INDICATION: Z12.31-Encounter for screening mammogram for malignantneoplasm of [id number] COMPARISON STUDIES: Compared with prior studies the most recent being 03/18/2024 MM MAMMO DIGITAL LORIE SCREEN BILAT at [facility] 02/23/2023 MM MAMMO DIGITAL LORIE DIAGN BILAT at [facility] 12/30/2021 MM MAMMO DIGITAL LORIE DIAGN BILAT at [facility] TISSUE DENSITY: There are scattered areas of fibroglandular density. FINDINGS: No mammographic evidence of malignancy. Stable tissue patternwith biopsy marker in the left breast. IMPRESSION: Benign ([id number]) RECOMMENDATION: Routine Screening Mammogram in 1 Year Bilateral . . COMMENTS: DISCLAIMER *The patient was notified by MyChart or mail of the results for this examination. *The patient's information was entered into a reminder system with atarget due date for the next breast imaging, in accordance with the [place] [employer] and the Society of Breast Imaging recommendations. *Breast Imaging has a false negative rate of 15%. *Any patient with a palpable abnormality, unexplained by breast imaging,should be managed on a clinical basis by the attending physician. Fernando Green DO IMG MAMMOGRAPHY ORDERABLES F inal Result * [facility] COPY[facility] CYTOLOGY REQUEST (PAP ONLY) (01/10/2019 2:10 PM EDT) CASE REPORT Gynecologic Cytology Report Case: [id number] Authorizing Provider: Viji Abel, Collected: 01/10/2019 1410 Ordering Location: [facility] Received: 01/10/2019 1410 First Screen: Dre Doyle CT Specimen: LIQUID-BASED PAP - CERVICAL/ENDOCERV ICAL, Cervix, Endocervical 01/11/2019 11:31 AM EDT [facility] PAP FINAL DIAGNOSIS Negative for intraepithelial lesion or malignancy 01/11/2019 11:31 AM EDT [facility] at 1131 EDT MICROSCOPIC DESCRIPTION Microscopic examination is performed and the findings corroborate the diagnosis. 01/11/2019 11:31 AM EDT [facility] PAP SMEAR ADEQUACY Satisfactory for evaluation 01/11/2019 11:31 AM EDT [facility] ENDOCERVICAL T-ZONE Transformation Zone Absent. This is not unusual in a post-menopausal woman. 01/11/2019 11:31 AM EDT [facility] EMBEDDED IMAGES 9 11:31 AM EDT [facility] PAP DISCLAIMER The Pap Smear is a screening test that aids in the detection of cervical cancer and cancer precursors. Both false positive and false negative results can occur. The test should be used at regular intervals, and positive results should be confirmed before definitive therapy. Processed using the ThinPrep Foundry Molder Automated cytology screening device (Streamcore System). 01/11/2019 11:31 AM EDT [facility] Thin Prep ENDOCERVICAL STRUCTURE / Unknown 01/10/2019 2:10 PM EDT 01/10/2019 2:10 PM EDT us Viji Abel MD CYTOLOGY [place] [address] * (ABNORMAL) HEPATITIS C ANTIBODY - SCREENING (08/28/2017 5:12 PM EDT) Hep C Ab Positive(A ) Negative 08/29/2017 10:20 AM EDT [facility] Blood VENOUS BLOOD / Unknown Venipuncture / Unknown 08/28/2017 5:12 PM EDT 08/28/2017 5:13 PM EDT Viji Hinojosa PA-C HEMATOLOGY ORDERABLES F inal Result [facility] [address] [place] [address] * GMED EGD-COLONOSCOPY (06/15/2017 12:00 PM EDT) 06/15/2017 12:[address] [facility] - 06/15/2017 12:29 PM EDT Plan: Screening Colonoscopy in 10 years. This section is an excerpt of the full report. us Miguel Benavidez MD GI PROCEDURE ORDERABLES Fin al Result Performing Organization Address [facility] Co de Phone Number 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
--- OUTSIDE RECORDS SUMMARY | 2025-05-24 12:14 | XMS_ITS | Clinical Summary ---
Author Organization [facility] Address [address] [place] [id number] Care Team Providers Care Tin Pourer Name Role Phone Dionisio Ferguson Primary Care Provider [phone] Source Comments This information has been disclosed to you from confidential records protectedfrom disclosure by state law. You shall make no further disclosure of thisinformation without the specific, written, and informed release of theindividual to whom it pertains, or as otherwise permitted by law. A generalauthorization for the release of medical or other information is not sufficientfor the purposes of therelease of HIV test results or diagnoses. [id number] Allergies Active Allergy Reactions Criticality Noted Date Comments Latex 12/02/2021 Powder in gloves Sulfa (Sulfonamide Antibiotics) 04/2022 Medications atorvastatin (LIPITOR) 40 MG tablet Take 40 mg by mouth daily. Active losartan (COZAAR) 50 MG tablet Take 50 mg by mouth daily. Active estradioL (ESTRACE) 1 MG tablet Take 1 mg by mouth daily. Active medroxyPROGESTE Jorge L (PROVERA) 2.5 MG tablet Take 2.5 mg by mouth daily. Active omeprazole (PRILOSEC) 20 MG capsule Take 20 mg by mouth every morning before breakfast. Active furosemide (LASIX) 40 MG tablet Take 40 mg by mouth if needed. Active cetirizine (ZYRTEC) 10 MG tablet Take 10 mg by mouth daily. Active microfibrillar collagen powder Apply 1 g topically if needed. Active Active Problems Problem Noted Date Diagnosed Date Disturbance of skin sensation 12/17/2009 Other lesion of median nerve 12/14/2008 Other malaise and fatigue 12/04/2008 Vaginitis and vulvovaginitis 06/30/2007 Overview (07/26/2015): ICD-10 Transition Symptomatic menopausal or female climacteric sta kaley 06/30/2007 Encounter for routine gynecological examination 06/30/2007 Overview (07/26/2015): ICD-10 Transition Family History Relation Status Comments Father Mother Alive Social History Tobacco Use Types Packs/Day Years Used Date Smoking Tobacco: Never Smokeless Tobacco: Never Alcohol Use Standard Drinks/Week Comments Yes 0 (1 standard drink = 0.6 oz pur e alcohol) once every couple months Comments Unknown Sex and Gender Information Value Date Recorded Sex Assigned at Not on file Legal Sex Female 6:42 PM EST Gender Identity Not on file Sexual Orientation Not on file Last Filed Vital Signs Vital Sign Reading Time Taken Comments Blood Pressure 145/86 12/02/2021 12:52 PM EST Pulse 80 12/02/2021 12:52 PM EST Temperature - - Respiratory Rate - - Oxygen Saturation 98% 12/02/2021 12:52 PM EST Inhaled Oxygen Concentration 98% 12/02/2021 1 2:52 PM EST Weight 69.9 kg (154 lb) 12/02/2021 12:52 PM EST Height 154.9 cm (5' 1 ) 12/02/2021 12:52 PM EST Body Mass Index 29.1 12/02/2021 12:52 PM EST Plan of Treatment Health Maintenance Due Date Last Done Comments Abnormal Colonoscopy Follow Up 1965 Hepatitis C Screening (MyChart) 1963 Alcohol Misuse Screening 1981 Depression Screening 1981 HIV Screening 1981 Cologuard (FIT-DNA) 2008 Colonoscopy 2008 Colorectal Cancer Screening (MyChart) 2008 Stool Testing (gFOBT) 2008 Immunization: Zoster (1 of 2) 2013 Immunization: Pneumococcal (2 of 2 - PCV) 11/07/2016 11/07/2015 Immunization: DTaP/Tdap/Td ( 2 - Td or Tdap) 11/24/2023 11/24/2013 Immunization: COVID-19 ( season) 2024 02/25/2021, 02/04/2021 Immunization: Influenza (MyC nieves) (Season Ended) 2025 08/03/2016, 08/26/2015 Immunization: RSV (Adult) (1 - 1-dose 75+ series) 2038 Insurance [employer] Care Teams Tin Pourer Relationship Specialty Start Date End Date Dionisio Ferguson PCP - General 04/02/04
[2025-05-24 12:54] LABS: Alanine Aminotransferase 37 U/L (12-78); Albumin Level 4.5 g/dl (3.5-5.0); Alkaline Phosphatase 76 U/L (38-126); Aspartate Amino Transferase 36 U/L (14-36); Bilirubin,Direct 0.1 mg/dl (0.0-0.4); Bilirubin,Indirect 0.3 mg/dL (0.0-0.9); Bilirubin,Total 0.4 mg/dl (0.2-1.3); Bilirubin,Unconjugated 0.3 mg/dL (0.0-1.1); Cholesterol 160 mg/dl (140-200); HDL Cholesterol 64 mg/dl (40-60); Total Protein,Serum 6.9 g/dl (6.3-8.2); Triglycerides 99 mg/dl (30-150)
== END 2025-05-24 23:59 | disposition home or self-care (01) ==
LOC: LAB 12:11
PROVIDERS: PCP Internal Medicine; Visit Provider Internal Medicine
DX: E78.49 Other hyperlipidemia (principal); I10 Essential (primary) hypertension
CPT/HCPCS: 36415; 80061; 80076

== ENCOUNTER 2025-06-21 12:24 | Outpatient (CLI) | payer MEDICARE, SELFPAY ==
--- OUTSIDE RECORDS SUMMARY | 2025-05-23 16:30 | XMS_ITS | Encounter Summary ---
Author Organization [place] [address] Care Team Providers Care Route Inspector Name Role Phone Rachna Talavera MD Unavailable Fernando Green DO Primary Care Provider [phone] Reason for Visit * Reason Comments Dysuria Encounter Details Date Type Department Care Team (Late Contact Info) Description 05/23/2025 4:30 PM EDT Office Visit [facility] [place] [address] [facility] [address] [place] [id number] Wilmer Jiménez MD [address] [facility] [address] [place] [address] Dysuria (Primary Dx) Social History Tobacco Use Types Packs/Day Years [...] Sign Reading Time Taken Comments Blood Pressure 134/94 05/23/2025 4:31 PM EDT Pulse 85 05/23/2025 4:31 PM EDT Temperature 36.8 C (98.2 F) 05/23/2025 4:31 PM EDT Respiratory Rate - - Oxygen Saturation 98% 05/23/2025 4:31 PM EDT Inhaled Oxygen Concentration - - Weight 76.3 kg (168 lb 3.2 oz) 05/23/2025 4:31 P M EDT Height 157.5 cm (5' 2 ) 05/23/2025 4:31 PM EDT Body Mass Index 30.76 05/23/2025 4:31 PM EDT documented in this encounter Functional [...] 7:16 AM EDT Sirisha Coleman MA documented as of this encounter Mental Status * Because of a physical, mental or emotional condition, does this person have serious difficulty concentrating, remembering or making decisions? Answer Entry Date Author No 04/18/2025 7:16 AM EDT Sirisha Coleman MA documented in this encounter Ordered Prescriptions Prescription Sig Dispense Quantity Refills Last Filled Start Date End Date nitrofurantoin, macrocrystal-monoh ydrate, (MACROBID) 100 mg Oral CapsuleIndications :Dysuria Take 1 Capsule by mouth 2 times daily for 5 days. 10 Capsule 05/23/2025 documented in this encounter Progress Notes * Wilmer Jiménez MD - 05/23/2025 4:30 PM EDT Assessment & Plan Dysuria Sx consistent with acute bacterial cystitis. Less concern for pyelonephritis. Treatment as listed below. Culture will be done. Finish abx course unless otherwise specified. Patient will contact us ifsymptoms do not resolve after abx course. Orders: URINE CULTURE (NO STAIN); Future nitrofurantoin, macrocrystal-monohydrate, (MACROBID) 100 mg Oral Capsule; Take 1 Capsule by mouth 2times daily for 5 days. Progress Note: Vitals: 05/23/25 1631 BP: (!) 134/94 Pulse: 85 Temp: 98.2 ??F (36.8 ??C) TempSrc: Temporal SpO2: 98% Weight: 168 lb 3.2 oz (76.3 kg) Height: 5' 2 (1.575 m) Body mass index is 30.76 kg/m??. SUBJECTIVE: Chief Complaint Patient presents with Dysuria HPI: SUBJECTIVE: Rabia Nobles is a 59 y.o. female who complains of dysuria, urinary frequency, and urinary retention x 1 days. Pt denies hematuria, fever, and back pain. History of recurrent UTI's: no. Review of Systems OBJECTIVE: Physical Exam documented in this encounter Plan of Treatment Upcoming Encounters Date Type Department Care Team (Late st Contact Info) Description 06/28/2025 9:00 AM EDT Office Visit [facility] [place] [address] [place] [address] MitchellLeola LCSW documented as of this encounter Goals Goal Patient Goal Type Associated Problems Recent Progress Patient-Stated? Author Blood Pressure < 140/90 Blood Pressure 112/80(2024 10:46 AM EDT) No Hyacinth Lemus MA Maintain a healthy diet, exercise regularly and maintain an ideal body weight General No Sherri Arevalo RMA documented as of this encounter Procedures Procedure Name Priority Date/Time Associated Diagnosis Comments URINE CULTURE (NO STAIN) Routine 05/23/2025 4:42 PM EDT Dysuria SEP URINALYSIS POC Routine 05/23/2025 4: 38 PM EDT Dysuria documented in this encounter Results * URINE CULTURE (NO STAIN) (05/23/2025 4:42 PM EDT) Culture Multiple bacterial species isolated from urine consistent with urogenital commensal organisms. 05/25/2025 10:35 AM EDT [facility] Urine STRUCTURE OF URINARY TRACT PROPER / Unknown 05/23/2025 4:42 PM EDT 05/23/2025 4:42 PM EDT Wilmer Jiménez MD MICROBIOLOGY - GENERAL ORDERA BLES Final Result [facility] [address] [facility] , [place] [address] * (ABNORMAL) SEP URINALYSIS POC (05/23/2025 4:38 PM EDT) UA Color POC Yellow Color 05/23/2025 4:40 PM EDT [facility] [place] [address] UA Appear POC Cloudy(A) Clear 05/23/2025 4:40 PM EDT [facility] [address] UA Gluc POC Negative Negative mg/dL 05/23/2025 4:40 PM EDT [facility] [address] UA Bili POC Negative Negative 05/23/2025 4:40 PM EDT [facility] [address] UA Ketones POC Negative Negative mg/dL 05/23/2025 4:40 PM EDT [facility] [address] UA SG POC 1.025 1.001 - 1.035 no units 05/23/2025 4:40 PM EDT [facility] [address] UA Blood POC Small(A) Negative 05/23/2025 4:40 PM EDT [facility] [address] UA pH POC 5.0 5.0 - 8.0 pH 05/23/2025 4:40 PM EDT [facility] [address] UA Protein POC Negative Negative mg/dL 05/23/2025 4:40 PM EDT [facility] [address] UA Urobilinogen POC 0.2 0.2, 1.0 05/23/2025 4:40 PM EDT [facility] [address] UA Nitrite POC Negative Negative 05/23/2025 4:40 PM EDT [facility] [address] UA Leuk Est POC Negative Negative 4:40 PM EDT [facility] [address] Urine STRUCTURE OF URINARY TRACT PROPER / Unknown 05/23/2025 4:38 PM EDT 05/23/2025 4:40 PM EDT Wilmer Jiménez MD POINT OF CARE TEST ORDERABLES Final Result Performing Organization Address City/State/[facility] Co de Phone Number [place] [phone] [place] [phone] documented in this encounter Visit Diagnoses Diagnosis Dysuria- Primary documented in this encounter Historical Medications * This list may reflect changes made after this encounter. Medication Sig Dispense Quantity Refills Last Filled Start D ate End Date rosuvastatin (CRESTOR) 40 mg Oral Tablet 04/19/2025 metFORMIN (GLUCOPHAGE) 500 mg Oral Tablet 04/19/2025 added in this encounter Care Teams Route Inspector Relationship Specialty Start Date End Date Fernando Green DO [address] [address] [address] [place] [id number] PCP - General Internal Medicine 06/06/24 Rachna Talavera MD [address] [place] [address] Physician Internal Medicine-Nephrology 05/23/15 documented as of this encounter
--- OUTSIDE RECORDS SUMMARY | 2025-05-31 09:45 | XMS_ITS | Encounter Summary ---
Author Organization [place] [address] Care Team Providers Care Solution Design And Analysis Manager Name Role Phone Rachna Talavera MD Unavailable Fernando Green DO Primary Care Provider [phone] Reason for Visit * Reason Comments Other pt wants to discuss about medication. Encounter Details Date Type Department Care Team (Late st Contact Info) Description 05/31/2025 9:45 AM EDT Office Visit [facility] [address] [facility] [address] [facility] [address] [place] [address] Fernando Green DO [address] [place] [address] Depression with anxiety (Primary Dx); Grief Social History Tobacco Use Types Packs/Day Years [...] Sign Reading Time Taken Comments Blood Pressure 136/80 05/31/2025 9:41 AM EDT Pulse 92 05/31/2025 9:41 AM EDT Temperature 36.9 C (98.4 F) 05/31/2025 9:41 AM EDT Respiratory Rate 12 05/31/2025 9:41 AM EDT Oxygen Saturation 98% 05/31/2025 9:41 AM EDT Inhaled Oxygen Concentration - - Weight 76.2 kg (168 lb) 05/31/2025 9:41 AM EDT Height 157.5 cm (5' 2 ) 05/31/2025 9:41 AM EDT Body Mass Index 30.73 05/31/2025 9:41 AM EDT documented in this encounter Functional [...] Date Author No 04/18/2025 7:16 AM EDT Siirsha Coleman MA documented in this encounter Ordered Prescriptions Prescription Sig Dispense Quantity Refills Last Filled Start Date End Date busPIRone (BUSPAR) 7.5 mg Oral TabletIndications:D epression with anxiety,Grief Take 1 Tablet by mouth 2 times daily. 60 Tablet 5 05/31/2025 buPROPion (WELLBUTRIN XL) 150 mg Oral Tablet Sustained Release 24 hrIndications:Depre ssion with anxiety,Grief Take 1 Tablet by mouth every morning. 30 Tablet 3 05/31/2025 documented in this encounter Progress Notes * Fernando Green, - 05/31/2025 9:45 AM EDT Assessment & Plan 1. Anxiety and depression. - Symptoms suggest a state of being overwhelmed, likely due to her daughter's situation. - Discussed the importance of medication for managing stress and functionality. Counseling servicesavailable if needed. - Prescription for Wellbutrin and BuSpar sent to pharmacy. Advised to start medications and consider counseling if stress worsens. 2. Hypertension. - Blood pressure remains elevated despite adjustments in medication. - Currently on losartan 100 mg. - Advised to continue monitoring blood pressure and report any significant changes. - Blood pressure today was 136/82, which is an improvement. 3. Weight management. - Advised to continue taking metformin as an alternative to Wegovy and Ozempic due to cost concerns. - Encouraged to focus on weight loss through lifestyle modifications. - Bell Spinner suggested weight loss to help manage blood pressure. Follow-up: Scheduled in 6 weeks. Assessment & Plan No follow-ups on file. Subjective Rabia L Nobles is a 59 y.o. female Chief Complaint Patient presents with Other pt wants to discuss about medication. History of Present Illness The patient is a 59-year-old female here for follow-up on anxiety and depression. She has been under significant stress due to her 36-year-old daughter's life choices.. The patient's stress is further compounded by the presence of an alcoholic individual in her daughter's life andthe care of her 4-year-old twin grandchildren, who are suspected to be borderline autistic. The situation escalated when her daughter, who is also , requested her help to leave her current living situation in [place]. The patient describes the living conditions as appalling and is struggling to cope with the additional responsibilities. She reports no suicidal ideation. She has not been taking Wellbutrin or BuSpar as advised by her cupola operator insulation, Dr. Mariano, who attributed her depression to her weight and recommended weight loss through Wegovy. However, due to the highcost of [employer], she was prescribed metformin instead. She is currently taking metformin. Alcohol: She reports minimal alcohol consumption. Living Condition: She has moved her daughter into her house. Review of Systems Constitutional: Negative. Negative for activity change, chills, fatigue, fever and unexpected weight change. HENT: Negative for congestion. Eyes: Negative for visual disturbance. Respiratory: Negative for cough and shortness of breath. Cardiovascular: Negative for chest pain, palpitations and leg swelling. Gastrointestinal: Negative for abdominal pain, blood in stool, constipation, diarrhea, nausea and vomiting. Genitourinary: Negative for decreased urine volume, difficulty urinating, dysuria, hematuria and urgency. Neurological: Negative for dizziness, tremors, syncope and numbness. Psychiatric/Behavioral: Positive for behavioral problems, decreased concentration and dysphoric mood. Negative for self-injury, sleep disturbance and suicidal ideas. The patient is nervous/anxious. All other systems reviewed and are negative. Objective Blood pressure (!) 136/80, pulse 92, temperature 98.4 ??F (36.9 ??C), temperature source Temporal, resp. rate 12, height 5' 2 (1.575 m), weight 168 lb (76.2 kg), SpO2 98%, not currently . Body mass index is 30.73 kg/m??. Physical Exam Other: Blood pressure reading is 136/82. Physical Exam Vitals and nursing note reviewed. Constitutional: General: She is not in acute distress. Appearance: She is well-developed. She is not diaphoretic. HENT: Head: Normocephalic and atraumatic. Eyes: General: No scleral icterus. Pupils: Pupils are equal, round, and reactive to light. Neck: Thyroid: No thyromegaly. Vascular: No JVD. Cardiovascular: Rate and Rhythm: Normal rate [...] no guarding or rebound. Musculoskeletal: Cervical back: Normal range of motion and neck supple. Right lower leg: No edema. Left lower leg: No edema. Lymphadenopathy: Cervical: No cervical adenopathy. Skin: General: Skin is warm and dry. Capillary Refill: Capillary refill takes less than 2 seconds. Coloration: Skin is not jaundiced. Neurological: Mental Status: She is alert and oriented to person, place, and time. Psychiatric: Mood and Affect: Mood normal. Behavior: Behavior normal. Thought Content: Thought content normal. Judgment: Judgment normal. Results Lab Results Component Value Date HGBA1C 6.1 (H) 04/19/2025 Chemistry Component Value Date/Time NA 141 04/18/2025 1115 NA 143 02/12/2017 1634 K 3.8 04/18/2025 1115 K 3.5 02/12/2017 1634 CL 108 (H) 04/18/2025 1115 CL 107 02/12/2017 1634 CO2 20 (L) 04/18/2025 1115 CO2 22 02/12/2017 1634 CO2 22 04/07/2014 0930 BUN 21 04/18/2025 1115 BUN 16 02/12/2017 1634 CREATININE 1.06 04/18/2025 1115 CREATININE 1.2 03/04/2024 1101 CREATININE 1.04 02/12/2017 1634 GLU 121 (H) 04/18/2025 1115 GLU 100 02/12/2017 1634 Component Value Date/Time CALCIUM 9.4 04/18/2025 1115 CALCIUM 9.0 02/12/2017 1634 ALKPHOS 69 04/18/2025 1115 ALKPHOS 50 06/09/2017 0815 AST 18 04/18/2025 1115 AST 15 06/09/2017 0815 ALT 29 04/18/2025 1115 ALT 24 06/09/2017 0815 BILITOT 0.6 04/07/2014 0930 Lab Results Component Value Date CHOLESTEROL 221 (H) 04/18/2025 CHOLESTEROL 166 06/13/2024 CHOLESTEROL 166 09/11/2023 Lab Results Component Value Date HDL 60 04/18/2025 HDL 58 06/13/2024 HDL 56 09/11/2023 Lab Results Component Value Date LDLCALC 140 (H) 04/18/2025 LDLCALC 88 06/13/2024 LDLCALC 91 09/11/2023 Lab Results Component Value Date TRIG 117 04/18/2025 TRIG 113 06/13/2024 TRIG 102 09/11/2023 Lab Results Component Value Date TSH 3.170 04/18/2025 Lab Results Component Value Date WBC 8.2 04/19/2025 HGB 12.9 04/19/2025 HCT 40.6 04/19/2025 MCV 89.8 04/19/2025 PLT 351 04/19/2025 No results found for this visit on 05/31/25. . Patient to call if increased or new symptoms otherwise follow up as directed. The provider educated the patient (or legal screening representative) on the use of the ambient listening artificial intelligence tool, [employer]. They were informed that this AI tool [...] of such information, the patient (or legal screening representative), and each individual in attendance with the patient, verbally consented to the use of the AI tool. documented in this encounter Plan of Treatment Upcoming Encounters Date Type Department Care Team (Late st Contact Info) Description 06/28/2025 9:00 AM EDT Office Visit [facility] [address] [address] [address] [place] [address] eLola Mitchell LCSW documented as of this encounter Goals Goal Patient Goal Type Associated Problems Recent Progress Patient-Stated? Author Blood Pressure < 140/90 Blood Pressure 112/80(2024 10:46 AM EDT) No Hyacinth Lemus MA Maintain a healthy diet, exercise regularly and maintain an ideal body weight General No Sherri Arevalo RMA documented as of this encounter Visit Diagnoses Diagnosis Depression with anxiety- Primary Dysthymic disorder Grief Adjustment disorder with depressed mood documented in this encounter Discontinued Medications Medication Sig Discontinue Reason Start Date End Da te buPROPion (WELLBUTRIN XL) 150 mg Oral Tablet Sustained Release 24 hrIndications:Depression with anxiety Take 1 Tablet by mouth every morning. Reorder 04/18/2025 05/31/2025 busPIRone (BUSPAR) 7.5 mg Oral TabletIndications:Depres joi with anxiety Take 1 Tablet by mouth 2 times daily. Reorder 04/18/2025 05/31/2025 documented as of this encounter Care Teams Solution Design And Analysis Manager Relationship Specialty Start Date End Date Fernando Green DO [address] [place] [phone] PCP - General Internal Medicine 06/06/24 Rachna Talavera MD [address] [place] [address] Physician Internal Medicine-Nephrology 05/23/15 documented as of this encounter
--- OUTSIDE RECORDS SUMMARY | 2025-06-15 10:30 | XMS_ITS | Encounter Summary ---
Author Organization [place] [address] Care Team Providers Care Kennel Staff Member Name Role Phone Rachna Talavera MD Unavailable Fernando Green DO Primary Care Provider + [phone] Leola Mitchell HEAD MACHINIST Unavailable Unavailable Reason for Visit * Reason Comments Gynecologic Exam Annual Encounter Details Date Type Department Care Team (Latest Contact Info) Description 06/15/2025 10:30 AM EDT [facility] Visit [facility] [address] [place] [address] Zamzam Carlisle MD [address] [place] [address] Well female exam with routine gynecological exam (Primary Dx); Post-menopause Social History Tobacco Use Types Packs/Day Years Used Date Smoking Tobacco: Never Passive Smoke Exposure: Past Smokeless Tobacco: Never Tobacco Cessation:Counseling Given: Not Answered Alcohol Use Standard Drinks/Week Comments Not Currently 1 (1 standard drink = 0.6 oz pur e alcohol) B1300 Health Literacy Answer Date Recor ded How often do you need to hav e someone help you when you read instructions, pamphlets, or other written material from your doctor or pharmacy? Never 06/16/2025 [facility] Utilities Answer Date Recorded In the past 12 months has e electric, gas, oil, or water company threatened to shut off services in your home? No 06/16/2025 Overall Financial Resource Strain (CARDIA) Answe r Date Recorded How hard is it for you to pa y for the very basics like food, housing, medical care, and heating? Not hard at all 06/16/2025 PHQ-2 Answer Date Recorded PHQ-2 Total Score 6 06/16/2025 [facility] of Occupat ional Health - Occupational Stress Questionnaire Answer Date Recorded Do you feel stress - tense, restless, nervous, or anxious, or unable to sleep at night because your mind is troubled all the time - these days? Very much 06/16/2025 Exercise Vital Sign Answer Date Recorde d On average, how many days pe r week do you engage in moderate to strenuous exercise (like a brisk walk)? 3 days 06/16/2025 On average, how many minutes do you engage in exercise at this level? 50 min 06/16/2025 Hunger Vital Sign Answer Date Recorded Within the past 12 months, y ou worried that your food would run out before you got the money to buy more. Never true 06/16/20 25 Within the past 12 months, t he food you bought just didn't last and you didn't have money to get more. Never true 06/16/2025 PRAPARE - Transportation Answer Date Re corded In the past 12 months, has l ack of transportation kept you from medical appointments or from getting medications? No 05/27 In the past 12 months, has l ack of transportation kept you from meetings, work, or from getting things needed for daily living? No 06/16/2025 Housing Stability Vital Sign Answer Perfecto e Recorded In the last 12 months, was t here a time when you were not able to pay the mortgage or rent on time? No 06/16/2025 In the past 12 months, how m any times have you moved where you were living? 0 06/16/2025 At any time in the past 12 m [facility], were you homeless or living in a half-way (including now)? No 06/16/2025 Sexually Active Control Partners Comments Yes Surgical [...] Sign Reading Time Taken Comments Blood Pressure 112/80 06/15/2025 10:46 AM EDT Pulse - - Temperature - - Respiratory Rate - - Oxygen Saturation - - Inhaled Oxygen Concentration - - Weight 75.2 kg (165 lb 12.8 oz) 025 10:46 AM EDT Height - - Body Mass Index 30.33 05/31/2025 9:41 AM EDT documented in this [...] Little interest or pleasure in doing things 3 06/16/2025 12:11 PM EDT Leola Mitchell LCSW Feeling down, depressed, or hopeless 3 06/16/2025 12:11 PM EDT Leola Mitchell LCSW PHQ-2 Total Score 6 06/16/2025 12:11 PM EDT Leola Mitchell LCSW Trouble falling or staying asleep, or sleeping too much 3 06/16/2025 12:11 PM EDT Leola Mitchell LCSW Feeling tired or having little energy 3 06/16/2025 12:11 PM EDT Leola Mitchell LCSW Poor appetite or overeating 2 06/16/2025 12 :11 PM Leola Dunbar LCSW Feeling bad about yourself - or that you are a failure or have let yourself or your family down 3 06/16/2025 12:11 PM Leola Dunbar LCSW Trouble concentrating on things, such as reading the newspaper or watching television 0 06/16/2025 12:11 PM Leola Dunbar LCSW Moving or speaking so slowly that other people could have noticed. Or the opposite - being so fidgety or restless that you have been moving around a lot more than usual 0 06/16/2025 12:11 PM Leola Dunbar LCSW Thoughts that you would be better off , or of hurting yourself in some way 0 06/16/2025 12:11 PM Leola Dunbar LCSW PHQ-9 Total Score 17 06/16/2025 12:11 PM Leola Dunbar LCSW If you checked off any problems, how difficult have these problems made it for you to do your work, take care of things at home, or get along with other people? Very difficult 06/16/2025 12:11 PM Leola Dunbar LCSW * PHQ-2 Total Score Answer Date of Assessment Author 6 06/16/2025 12:11 PM Leola Dunbar LCSW * Question Answer Date of Assessment Author Feeling Nervous, Anxious, or on Edge 2 06/16/2025 12:11 PM Leola Dunbar LCSW Not Being Able to Stop or Control Worrying 3 06/16/2025 12:11 PM Leola Dunbar LCSW Worrying too Much About Different Things 3 06/16/2025 12:11 PM Leola Dunbar LCSW Trouble Relaxing 2 06/16/2025 12:11 PM Leola Dunbar LCSW Being so Restless That it is Hard to Sit Still 1 06/16/2025 12:11 PM Leola Dunbar LCSW Becoming Easily Annoyed or Irritable 1 06/16/2025 12:11 PM Leola Dunbar LCSW Feeling Afraid as if Somethi ng Awful Might Happen 0 06/16/2025 12:11 PM EDT Leola Mitchell LCSW OMAYRA-7 Total Score 12 06/16/2025 12:11 PM EDT Leola Mitchell LCSW documented as of this encounter Mental Status [...] Description 06/28/2025 9:00 AM EDT Office Visit [facility] [address] [place] [id number] Leola Mitchell LCSW documented as of this encounter Goals Goal Patient Goal Type Associated Problems Recent Progress Patient-Stated? Author Blood Pressure < 140/90 Blood Pressure 112/80(2024 10:46 AM EDT) No Hyacinth Lemus MA Maintain a healthy diet, exercise regularly and maintain an ideal body weight General No Sherri Arevalo Gamal documented as of this encounter Procedures Procedure Name Priority Date/Time Associated Diagnosis Comments FOOD MIXER ASSEMBLER CYTOLOGY REQUEST (PAP ONLY) Routine 06/15/2025 11:09 AM EDT Well female exam with routine gynecological exam [facility] FOOD MIXER ASSEMBLER CYTOLOGY ORDER Routine 06/15/2025 11:09 AM EDT Well female exam with routine gynecological exam documented in this encounter Results * FOOD MIXER ASSEMBLER CYTOLOGY REQUEST (PAP ONLY) (06/15/2025 11:09 AM EDT) CASE REPORT Gynecologic Cytology Report Case: [id number] Authorizing Provider: Zamzam Carlisle MD Collected: 06/15/2025 110 Ordering Location: [facility] Received: 06/15/2025 1109 First Screen: Anita Berrios, DIANNA Specimen: LIQUID-BASED PAP - CERVICAL/ENDOCERV ICAL, Cervix, Endocervical 06/20/2025 12:48 PM EDT [facility] PAP FINAL DIAGNOSIS Negative for intraepithelial lesion or malignancy 06/20/2025 12:48 PM EDT [facility] at 1248 EDT MICROSCOPIC DESCRIPTION Microscopic examination is performed and the findings corroborate the diagnosis. 06/20/2025 12:48 PM EDT [facility] PAP SMEAR ADEQUACY Satisfactory for evaluation 06/20/2025 12:48 PM EDT [facility] ENDOCERVICAL T-ZONE Transformation zone absent. 06/20/2025 12:48 PM EDT [facility] EMBEDDED IMAGES 12:48 PM EDT [facility] PAP DISCLAIMER The Pap Smear is a screening test that aids in the detection of cervical cancer and cancer precursors. Both false positive and false negative results can occur. The test should be used at regular intervals, and positive results should be confirmed before definitive therapy. Processed using the ThinPrep Denture Packer Automated cytology screening device ([email or web address]). 06/20/2025 12:48 PM EDT [facility] Thin Prep ENDOCERVICAL STRUCTURE / Unknown 06/15/2025 11:09 AM EDT 06/15/2025 11:09 AM EDT us Zamzam Carlisle MD CYTOLOGY ORDERABLES Final Resul t [address] [id number] documented in this encounter Visit Diagnoses Diagnosis Well female exam with routine gynecological exam- Primary Routine gynecological examination Post-menopause Asymptomatic postmenopausal status (age-related) (natural) documented in this encounter Historical Medications * This list may reflect changes made after this encounter. semaglutide (OZEMPIC) 0.25 mg or 0.5 mg(2 mg/1.5 mL) SubQ Pen Injector Inject 0.25 mg under the skin once a week. added in this encounter Care Teams Kennel Staff Member Relationship Specialty Start Date End Date Fernando Green DO [address] [address] [address] [place] [address] PCP - General Internal Medicine 06/06/24 Rachna Talavera MD [address] [id number] Physician Internal Medicine-Nephrology 05/23/15 Leola iMtchell LCSW Strip Picker 06/09/25 documented as of this encounter
--- OUTSIDE RECORDS SUMMARY | 2025-06-16 10:30 | XMS_ITS | Encounter Summary ---
Author Organization [place] [address] Care Team Providers Care Telecommunications Operator Name Role Phone Rachna Talavera MD Unavailable Fernando Green DO Primary Care Provider [phone] Leola Mitchell LCSW Unavailable Unavailable Reason for Visit * Reason Comments SW- Initial Care Management - Face To Face CM-Resource Coordination Encounter Details Date Type Department Care Team (Late st Contact Info) Description 06/16/2025 10:30 AM EDT Office Visit [facility] [address] [place] [id number] Leola Mitchell LCSW Relationship problem between parent and child (Primary Dx) Social History Tobacco Use Types [...] from your doctor or pharmacy? Never 06/16/[address] [facility] Utilities Answer Date Recorded In the past [...] Date Recorded PHQ-2 Total Score 6 06/16/2025 [facility] of Occupat ional [facility] - Occupational Stress Questionnaire Answer Date Recorded [...] any time in the past [address] [facility], were you homeless or living in a nursing home (including now)? No 06/16/2025 Sexually Active Control [...] in doing things 3 06/16/2025 12:11 PM Leola Dunbar LCSW Feeling down, depressed, or hopeless 3 06/16/2025 12:11 PM Leola Dunbar LCSW PHQ-2 Total Score 6 06/16/2025 12:11 PM Leola Dunbar LCSW Trouble falling or staying asleep, or sleeping too much 3 06/16/2025 12:11 PM Leola Dunbar LCSW Feeling tired or having little energy 3 06/16/2025 12:11 PM Leola Dunbar LCSW Poor appetite or overeating 2 06/16/2025 [...] more than usual 0 06/16/2025 12:11 PM EDT Leola Mitchell LCSW Thoughts that you would be better off , or of hurting yourself in some way 0 06/16/2025 12:11 PM EDT Leola Mitchell LCSW PHQ-9 Total Score 17 06/16/2025 12:11 PM EDT Leola Mitchell LCSW If you checked off any problems, how difficult have these problems made it for you to do your work, take care of things at home, or get along with other people? Very difficult 06/16/2025 12:11 PM EDT Leola Mitchell LCSW * PHQ-2 Total Score Answer Date of Assessment Author 6 06/16/2025 12:11 PM EDT Leola Mitchell LCSW * Question Answer Date of Assessment Author Feeling Nervous, Anxious, or on Edge 2 06/16/2025 12:11 PM EDT Leola Mitchell LCSW Not Being Able to Stop or Control Worrying 3 06/16/2025 12:11 PM EDT Leola Mitchell LCSW Worrying too Much About Different Things 3 06/16/2025 12:11 PM EDT Leola Mitchell LCSW Trouble Relaxing 2 06/16/2025 12:11 PM EDT Leola Mitchell LCSW Being so Restless That it is Hard to Sit Still 1 06/16/2025 12:11 PM EDT Leola Mitchell LCSW Becoming Easily Annoyed or Irritable 1 06/16/2025 12:11 PM EDT Leola Mitchell LCSW Feeling Afraid as if Somethi ng [...] Sirisha Coleman MA documented in this encounter Progress Notes * Leola Mitchell LCSW - 06/16/2025 10:30 AM EDT Progress Note Begin Time: 10:30am End Time: 11:30am Time spent: 60 minutes BHI Program Enrollment Consent BODY FINISHER has previously introduced Behavioral Health Integration services and reviewed possibility of cost-sharing. Patient Response: Interested Enrollment Status: Provided Consent and Enrolled Beginning Today Enrolling Provider: Dr. Green is the primary care provider and enrolling provider for I services due to active collaboration on BHI for this individual. Initial Date of Enrollment: 06/16/2025 Arvind Nobles is a 59 y.o. female who presents in-person today for an initial counseling session. BODY FINISHER attempted to completed initial assessments, and started to build rapport with patient. Patientwas open with BODY FINISHER about her current stressors and family. Patient shared that she is and has four adult children plus grandchildren. Patient disclosed her 36 year old daughter and her 5 yearold twins recently moved from [place] and in with patient and her . Patient shared her daughter has made a few bad choices over the years. Patient talked about how her daughter blames patient for her mental health problems. Patient also disclosed that she has been financially supporting the daughter, which has left her and her in excessive debt. Patient shared that she is unsure of how much more she can do. BODY FINISHER held space for patient to share and validated patient's feelings. BODY FINISHER then provided educationon boundary setting and self-care. BODY FINISHER and patient discussed techniques for patient to set physical, emotional, and financial boundaries with her daughter. BODY FINISHER also encouraged patient to engage in activities/hobbies patient enjoys, and provided patient with the calendar for the [facility]. Patient will utilize created treatment plan to continue progress towards treatment goals. Objective Patient is alert and oriented to person, place, and time. Patient presents as anxious, overwhelmed,and tearful. Affect is heightened. Patient's thought process is circumstantial, normal associations, and coherent. Patient indicated no disturbances in thought content. Patient does not report suicidal or homicidal ideation during session. Patient positive for abnormal psychomotor activity including appearing fidgety Symptoms include sad mood, decreased energy, difficulty concentrating, irritability, nervous feeling, restlessness, and worrying. Patient is taking Wellbutrin, and Buspar as prescribed and is compliant at this time. Assessment/Plan Patient Treatment Plan Plan Initiation: 06/16/2025 Presenting Problem Target Behavior SMART Goal Progress Family Discord Rooks setting Patient will increase boundaries by utilizing identified interventions in response to family demands as evidence by patient report. Developed Stress Self-care Patient will increase self-care by utilizing SPICES of life intervention between now and time of next session as evidence by improved mood, per patient report. Developed Interventions: Cognitive restructuring Communication training Developing coping skills Exploration of feelings Identifying triggers Labeling feelings Psycho-education Solutions focused techniques Stress management Supportive Questions Reflective Listening Behavioral Health Intervention Phase: Active Treatment Safety Assessment: No safety concerns identified; additional assessment not required this session. Next Appointment: 06/28/25 in person Additional Disclosures: Initial Appointment Disclosures: Purpose of the session was to introduce the patient to the Integrative Social Service program and discuss confidentiality of the sessions and to build rapport, obtainbasic information, assessments, and purpose for patient's desire and goals for counseling/therapy. During session, discussed with patient that clinician serves as a mandated delinquent account clerk for abuse and/orneglect of children and vulnerable adults, and has a duty to protect the patient from self-harming behaviors or suicidal intent with potential inpatient placement if a safety plan cannot be obtained.Additionally, conveyed that the clinician has a duty and obligation to notify others (including lawenforcement) of any homicidal intent. Patient expressed understanding and agreement during this discussion. Additional Assessments: Socioeconomic questionnaires completed during session. Social Drivers of Health (SDOH) Addressed in session: NA Advance Care Planning status was unable to be explored with patient due to patient's high level of distress. BETH Health Profile was completed during session. PHQ-9 was completed during session. Scoring is listed below. Additional Assessment: OMAYRA-7 was administered to patient. Patient scored 12 indicating moderate anxiety (10-14). Beth Health Profile Scoring Interpretation High Functionality 86 - 100 Adequate Functionality 71 - 85 Mild Obstables Indicated 51 - 70 Moderate Obstacles Indicated 26 - 50 Significant Obstacles Indicated 25 or lower 06/16/2025 Beth Health Profile Flowsheet I like who I am 1 - Somewhat describes me I am not an easy person to get along with 1 - Somewhat describes me I am bascially a healthy person 2 - Yes, describes me exactly I give up to easily 2 - No, doesn't describe me at all I have difficulty concentrating 2 - No, doesn't describe me at all I am happy with my family relationships 0 - No, doesn't describe me at all I am comfortable being around people 1 - Somewhat describes me Walking up a flight of stairs 2 - None Running the length of a football field 1 - Some Sleeping 0 - A Lot Hurting or aching in any part of your body 0 - A Lot Getting tired easily 0 - A Lot Feeling depressed or sad 0 - A Lot Nervousness 1 - Some Socialize with other people (talk or visit with friends or relatives) 2 - A Lot Take part in social, samaritan, or recreation activities (meetings, samaritan, movies, sports, parties) 1 - Some Stay in your home, a usp, or hospital because of sickness, injury, or other health problem2 - None Physical Health Score 30 Mental Health Score 60 Social Health Score 50 General Health Score 46.67 Perceived Health Score 100 Self-Esteem Score 50 Anxiety Score 58.33 Depression Score 60 Anxiety-Depression (BETH-AD) Score 57.14 Pain Score 100 Disability Score 0 PHQ-9 Scoring Interpretation No or minimal depression 0-4 Mild depression 5-9 Moderate depression 10-14 Moderately severe depression 15-19 Severe depression 20-27 06/16/2025 04/18/2025 06/06/2024 PHQ Depression Scale Little interest or pleasure in doing things 3 0 0 Feeling down, depressed, or hopeless 3 0 0 PHQ-2 Total Score 6 0 0 Trouble falling or staying asleep, or sleeping too much 3 Feeling tired or having little energy 3 Poor appetite or overeating 2 Feeling bad about yourself - or that you are a failure or have let yourself or your family down 3 Trouble concentrating on things, such as reading the newspaper or watching television 0 Moving or speaking so slowly that other people could have noticed. Or the opposite - being so fidgety or restless that you have been moving around a lot more than usual 0 Thoughts that you would be better off , or of hurting yourself in some way 0 PHQ-9 Total Score 17 0 0 If you checked off any problems, how difficult have these problems made it for you to do your work,take care of things at home, or get along with other people? Very difficult documented in this encounter Plan of Treatment Upcoming Encounters Date Type Department Care Team (Late st Contact Info) Description 06/28/2025 9:00 AM EDT Office Visit [facility] [address] [address] [address] [place] [address] Leola Mitchell LCSW documented as of this encounter Goals Goal Patient Goal Type Associated Problems Recent Progress Patient-Stated? Author Blood Pressure < 140/90 Blood Pressure 112/80(2024 10:46 AM EDT) No Hyacnith Lemus MA Maintain a healthy diet, exercise regularly and maintain an ideal body weight General No LoveSherri carlin RMA documented as of this encounter Visit Diagnoses Diagnosis Relationship problem between parent and child- Primary documented in this encounter Additional Health Concerns Assessment Noted Time PHQ-9 Depression Total Score: 17 025 12:11 PM EDT PHQ-2 Depression Total Score: 6 06/16/20 25 12:11 PM EDT documented as of this encounter Care Teams Telecommunications Operator Relationship Specialty Start Date End Date Fernando Green DO [address] [place] [phone] PCP - General Internal Medicine 06/06/24 Rachna Talavera MD [address] [place] [address] Physician Internal Medicine-Nephrology 05/23/15 Leola Mitchell LCSW Mulcher Operator 06/09/25 documented as of this encounter
--- OUTSIDE RECORDS SUMMARY | 2025-06-21 12:26 | XMS_ITS | Encounter Summary ---
Author Organization [place] [address] Care Team Providers Care Technical Customer Support Specialist Name Role Phone Rachna Talavera MD Unavailable Fernando Green DO Primary Care Provider [phone] Leola Mitchell LCSW Unavailable Unavailable Encounter Details Date Type Department Care Team (Late st Contact Info) Description 04/11/2025 Results Follow-Up [facility] [address] [facility] [address] [place] [address] Fernando Green DO [address] [place] [address] MM MAMMO DIGITAL LORIE SCREEN [...] dressing or bathing? No 04/18/2025 7:16 AM Adrianna Hernandez MA * Is the person deaf or [...] of Assessment Author No 06/24/2024 10:25 AM EDT Karolina Gracia MA * PHQ-9 Total Score Answer Date [...] Trouble Relaxing 0 04/18/2025 7:16 AM EDT Adrianna Pepper MA Being so Restless That it is Hard to Sit Still 0 04/18/2025 7:16 AM HARPREETT Adrianna Coleman MA Becoming Easily Annoyed or Irritable 0 03/27 7:16 AM HARPREETT Adrianna Coleman MA Feeling Afraid as if [...] or shopping? No 04/18/2025 7:16 AM EDT ColemanAdrianna cancino QUENTIN Because of a physical, menta l or emotional condition, does this person have serious difficulty concentrating, remembering or making decisions? No 04/18/2025 7:16 AM EDT Coleman Adrianna QUENTIN * Because of a physical, mental or emotional condition, does this person have serious difficulty concentrating, remembering or making decisions? Answer Entry Date Author No 06/24/2024 10:25 AM EDT Karolina Gracia MA documented in this encounter Plan of Treatment Upcoming Encounters Date Type Department Care Team (Late st Contact Info) Description 06/28/2025 9:00 AM EDT Office Visit [facility] [address] [facility] [address] [place] [address] Leola Mitchell LCSW documented as of this [...] on filedocumented in this encounter Care Teams Technical Customer Support Specialist Relationship Specialty Start Date End Date Fernando Green DO [address] [address] [address] [place] [address] PCP - General Internal Medicine 06/06/24 Rachna Talavera MD [address] [place] [address] Physician Internal Medicine-Nephrology 05/23/15 Leola Mitchell LCSW Community Ambassador 06/09/25 documented as of this encounter
--- OUTSIDE RECORDS SUMMARY | 2025-06-21 12:26 | XMS_ITS | Encounter Summary ---
Author Organization [place] [address] Care Team Providers Care Logging Specialist Name Role Phone Rachna Talavera MD Unavailable Fernando Green DO Primary Care Provider [phone] Leola Mitchell LCSW Unavailable Unavailable Encounter Details Date Type Department Care Team (Latest Contact Info) Description 04/18/2025 Results Follow-Up Jun [facility] [address] [address] [address] [place] [address] Fernando Green DO [address] [place] [address] COMPREHENSIVE METABOLIC PANEL, LIPID SCREEN, T4, [...] from your doctor or pharmacy? Never 06/16/2025 [facility] Utilities Answer Date Recorded In the past 12 months has th e electric, gas, oil, or water company threatened to shut off services in your home? No 06/16/2025 Overall Financial Resource Strain (CARDIA) Answe r Date Recorded How hard is it for you to pa y for the very basics like food, housing, medical care, and heating? Not hard at all 06/16/2025 PHQ-2 Answer Date Recorded PHQ-2 Total Score 6 06/16/2025 [facility] - Occupational Stress [...] any time in the past 12 m [facility], were you homeless or living in a care home (including now)? No 06/16/2025 Sexually Active [...] serious difficulty hearing? No 04/18/2025 7:16 AM HARPREETT Sirisha Coleman MA Is the person blind or does he/she have serious difficulty seeing even when wearing glasses? No 04/18/2025 7:16 AM HARPREETT Adrianna Coleman MA Does this person have [...] No 04/18/2025 7:16 AM Sirisha Hernandez MA * Is the person blind or does he/she have serious difficulty seeing even when wearing glasses? Answer Date of Assessment Author No 04/18/2025 7:16 AM EDSirisha Severino MA * Does this person have serious difficulty walking or climbing stairs? Answer Date of Assessment Author No 04/18/2025 7:16 AM Sirisha Hernandez MA * Does this person have difficulty dressing or bathing? Answer Date of Assessment Author No 04/18/2025 7:16 AM Sirisha Hernandez MA * Because of a physical, mental or emotional condition, does this person have difficulty doing errands alone such as visiting a doctor's office or shopping? Answer Date of Assessment Author No 04/18/2025 7:16 AM EDSirisha Severino MA * Question Answer Date of Assessment [...] Office Visit [facility] [address] [place] [address] Leola Mitchell LCSW documented as of this encounter Goals Goal Patient Goal Type Associated Problems Recent Progress Patient-Stated? Author Blood Pressure < 140/90 Blood Pressure 112/80(2024 10:46 AM EDT) No Hyacinth Lemus MA Maintain a healthy diet, exercise regularly and maintain an ideal body weight General No Loveless, Sherri Phillips, RMA documented as of this encounter Results * (ABNORMAL) HEMOGLOBIN A1C (04/19/2025 2:39 PM EDT) [facility] Hgb A1C 6.1(H) 4.2 - 5.6 % 04/19/2025 8:03 PM EDT [facility] Est. Avg Glucose 128 mg/dL 04/19/2025 8:03 PM EDT [facility] Blood VENOUS BLOOD / Unknown Venipuncture / Unknown 04/19/2025 2:39 PM EDT 04/19/2025 2:39 PM EDT Narrative [facility] - 04/19/2025 8:03 PM EDT REFERENCE RANGE: Normal: 4.0-5.6% Pre-diabetes: 5.7-6.4% Provisional diagnosis of diabetes: >6.4% Hgb F>10% and anything which shortens red cell survival, such as hemolytic anemia, or unstable hemoglobin variants such as HbSS, HbSC, or HbCC, will lower the HbA1c value associated with a given level of glycemic control. us Fernando Green DO CHEMISTRY ORDERABLES Final R esult [facility] [address] [facility] , [address] [address] [place] [address] * CBC (04/19/2025 2:39 PM EDT) [facility] WBC 8.2 3.7 - 10.3 x10(3)/mcL 04/19/2025 7:37 PM EDT [facility] RBC 4.52 3.90 - 5.20 x10(6)/mcL 04/19/2025 7:37 PM EDT [facility] Hgb 12.9 11.2 - 15.7 g/dL 04/19/2025 7:37 PM EDT [facility] Hct 40.6 34.0 - 45.0 % 04/19/2025 7:37 PM EDT [facility] MCV 89.8 80.0 - 100.0 fL 04/19/2025 [...] Final Result [facility] [address] [facility] , [address] [place], [place] [id number] documented in this encounter Visit Diagnoses Diagnosis HTN, goal below 140/90- Primary Unspecified essential hypertension Prediabetes Other abnormal glucose documented in this encounter Care Teams Logging Specialist Relationship Specialty Start Date End Date Fernando Green DO [address] [address] [address] [place] [id number] PCP - General Internal Medicine 06/06/24 Rachna Talavera MD [address] [place] [address] Physician Internal Medicine-Nephrology 05/23/15 Leola Mitchell LCSW [employer] 06/09/25 documented as of this encounter
--- OUTSIDE RECORDS SUMMARY | 2025-06-21 12:26 | XMS_ITS | Clinical Summary ---
Author Organization [facility] Phone Care Team Providers Care Cpc Name Role Phone Unavailable Unavailable Conditions or Problems No information available. Medications No information available. Medications Administered No information available. Allergies, Adverse Reactions, Alerts No information available. Results No information available. Plan of Care No information available. Procedures No information available. Vital Signs No information available. Immunizations No information available. Advance Directives No information available.
--- OUTSIDE RECORDS SUMMARY | 2025-06-21 12:26 | XMS_ITS | Clinical Summary ---
Author Organization [facility] Address [address] [place] [address] Care Team Providers Care Crop Quantitative Geneticist Name Role Phone Dionisio Ferguson Primary Care Provider [phone] Source Comments This information has been disclosed [...] therelease of HIV test results or diagnoses. [id number] Allergies Active Allergy Reactions Criticality Noted Date [...] ( season) 2024 02/25/2021, 02/04/2021 Immunization: Influenza (MyChart) (#1) 2025, 08/26/2015 Immunization: RSV (Adult) (1 - 1-dose 75+ series) 2038 Insurance [employer] Care Teams Crop Quantitative Geneticist Relationship Specialty Start Date End Date Dionisio Ferguson PCP - General 04/02/04
--- OUTSIDE RECORDS SUMMARY | 2025-06-21 12:26 | XMS_ITS | Clinical Summary ---
Author Organization [facility] Address [address] [place] [address] Phone Care Team Providers Care Wet Suit Gluer Name Role Phone Rachna Talavera MD Unavailable Fernando Green DO Primary Care Provider [phone] Leola Mitchell LCSW Unavailable Unavailable Allergies Active Allergy Reactions Criticality Noted Date [...] organization. fluticasone propionate (FLONASE) 50 mcg/actuation Nasl [place], SuspensionIndica tions:Cough, unspecified type 1 [place] by Nasal route daily. 1 Each 2 4 Active omeprazole (PRILOSEC) 40 mg Oral Capsule, Delayed Release(E.C.) TAKE 1 CAPSULE BY MOUTH 2 TIMES DAILY. TAKE 30 MIN PRIOR TO BREAKFAST AND DINNER. 180 Capsule 3 5 Active atorvastatin (LIPITOR) 40 mg Oral TabletIndication s:Hyperlipidemia with target LDL less than 130 Take 1 Tablet by mouth daily. 90 Tablet 3 5 Active hydroCHLOROthiaz caitlin 12.5 mg Oral TabletIndication s:HTN, goal below 140/90 Take 1 Tablet by mouth daily. 90 Tablet 3 5 Active losartan (COZAAR) 100 mg Oral TabletIndication s:HTN, goal below 140/90 Take 1 Tablet by mouth daily. 90 Tablet 3 5 Active metFORMIN (GLUCOPHAGE) 500 mg Oral Tablet 5 Active rosuvastatin (CRESTOR) 40 mg Oral Tablet 5 Active buPROPion (WELLBUTRIN XL) 150 mg Oral Tablet Sustained Release 24 hrIndications:De pression with anxiety,Grief Take 1 Tablet by mouth every morning. 30 Tablet 3 5 Active busPIRone (BUSPAR) 7.5 mg Oral TabletIndication s:Depression with anxiety,Grief Take 1 Tablet by mouth 2 times daily. 60 Tablet 5 5 Active semaglutide (OZEMPIC) 0.25 mg or 0.5 mg(2 mg/1.5 mL) SubQ Pen Injector Inject 0.25 mg under the skin once a week. Active nitrofurantoin, macrocrystal-mon ohydrate, (MACROBID) 100 mg Oral CapsuleIndicatio ns:Dysuria Take 1 Capsule by mouth 2 times daily for 5 days. 10 Capsule 5 05/28/20 25 Active Problems Problem Noted Date Diagnosed Date [...] Encounters Date Type Department Care Team Description 06/16/2025 10:30 AM EDT Office Visit [address] [place] [address] Leola Mitchell LCSW Relationship problem between parent and child (Primary Dx) 06/15/2025 10:30 AM EDT Office Visit [facility] CV [address] [place] [address] Zamzam Carlisle MD Well female exam with routine gynecological exam (Primary Dx); Post-menopause 06/09/2025 Patient Outreach [address] [phone] Leola Mitchell LCSW CM- Telephonic Outreach; CM - Contact Made 06/08/2025 Patient Outreach [facility] Care Managment [address] Appointment [place] [address] Erika Ward Referral 05/31/2025 9:45 AM EDT Office Visit [address] [place] [address] Fernando Green F, DO Depression with anxiety (Primary Dx); Grief 05/25/2025 Results Follow-Up [address] [place] [address] Wilmer Jiménez MD URINE CULTURE (NO STAIN) 05/23/2025 4:30 PM EDT Office Visit [address] [place] [address] Wilmer Jiménez MD Dysuria (Primary Dx) 04/21/2025 Results Follow-Up [place] [phone] Fernando Green, CBC, HEMOGLOBIN A1C 04/19/2025 2:39 PM EDT - 04/19/2025 11:59 PM EDT Hospital Encounter [facility] [address] [place] [address] HTN, goal below 140/90; Prediabetes Discharge Disposition: Home or Self Care 04/19/2025 Telephone [place] [phone] Fernando Green, Other (Faxing Recent Labs ) 04/18/2025 11:14 AM EDT - 04/18/2025 11:59 PM EDT Hospital Encounter [facility] [address] [address] Medicare annual wellness visit, subsequent; HTN, goal below 140/90; Hyperlipidemia with target LDL less than 130; Prediabetes; Screening for thyroid disorder; Obesity, Class I, BMI 30-34.9 Discharge Disposition: Home or Self Care 04/18/2025 10:30 AM EDT Office Visit [address] [address] Fernando Green DO Medicare annual wellness visit, subsequent (Primary Dx); HTN, goal below 140/90; Hyperlipidemia with target LDL less than 130; Screening for thyroid disorder; Urinary frequency; Obesity, Class I, BMI 30-34.9; Prediabetes; Depression with anxiety 04/18/2025 Results Follow-Up [address] [address] Fernando Green, COMPREHENSIVE METABOLIC PANEL, LIPID SCREEN, T4, FREE (THYROXINE), Additional followed-up results: 3 04/17/2025 Patient Outreach [facility] [address] [place] [address] Fernando Green DO Central Patient Navigator Outreach (AWV Questionnaire/) 04/11/2025 9:47 AM EDT - 04/11/2025 11:59 PM EDT Hospital Encounter [facility] Mammography [address] [phone] Fernando Green DO Encounter for screening mammogram for malignant neoplasm of breast Discharge Disposition: Home or Self Care 04/11/2025 Results Follow-Up [facility] [address] [place] [address] Fernando Green DO MM MAMMO DIGITAL LORIE [...] with biopsy; Surgeon: Miguel Benavidez MD; Location: [facility]; Service: Endoscopy BREAST BIOPSY 01/06/2022 Left [facility] COLONOSCOPY 2014 SECTION 04/1989 ABDOMEN SURGERY Not sure Gall bladder removed Medical History Medical History Date Comments Kidney disease In 2013 Neuropathy multifocal motor neuropathy Hypercholesteremia Hypertension Not [...] Hypertension Father Brody Dailey Cancer Mother Caryl Dailey Skin cancer Colon Polyps Mother Caryl Dailey Irritable Bowel Syndrome Mother Caryl Dailey Kidney Disease Mother Caryl Dailey Other Mother Caryl Dailey factor V leid en Thyroid Disease Mother Caryl Dailey Allergies Neg Hx Bleeding Prob Neg Hx [...] from your doctor or pharmacy? Never 06/16/2025 [facility] [employer] Answer Date Recorded In the past 12 months has e [employer], gas, oil, or water [employer] threatened to shut off services in your home? No 06/16/2025 Overall Financial Resource Strain (CARDIA) Answe r Date Recorded How hard is it for you to pa y for the very basics like food, housing, medical care, and heating? Not hard at all 06/16/2025 PHQ-2 Answer Date Recorded PHQ-2 Total Score 6 06/16/2025 [facility] - Occupational [...] any time in the past 12 m [facility], were you homeless or living in a alf (including now)? No 06/16/2025 Sexually Active Control [...] Pressure 112/80 06/15/2025 10:46 AM EDT Pulse 92 05/31/2025 9:41 AM EDT Temperature 36.9 C (98.4 F) 05/31/2025 9:41 AM EDT Respiratory Rate 12 05/31/2025 9:41 AM EDT Oxygen Saturation 98% 05/31/2025 9:41 AM EDT Inhaled Oxygen Concentration - - Weight 75.2 kg (165 lb 12.8 oz) 025 10:46 AM EDT Height 157.5 cm (5' 2 ) 05/31/2025 9:41 AM EDT Body Mass Index 30.33 05/31/2025 9:41 AM EDT Plan of Treatment Upcoming Encounters Date Type Department Care Team (Late st Contact Info) Description 06/28/2025 9:00 AM EDT Office Visit [facility] [address] [place] [address] Leola Mitchell LCSW Health Maintenance Due Date Last Done Comments HPV/Pap Cotest 1993 Cologuard 2008 FIT 2008 Sigmoidoscopy 2008 Virtual Colonography 2008 Zoster (1 of 2) 2013 Pneumococcal Vaccine 50+ (2 of 2 - PCV) 11/07/2016 11/07/2015 DTaP/TDaP/Td (2 - Td or Tdap) 11/24/2023 11/24/2013 COVID-19 Vaccine (3 - season) 2024 02/25/2021, 02/04/2021 Influenza Vaccine (#1) 2025 9, 08/25/2017 (Declined), 08/03/2016, Additional history exists Wellness Exam Medicare 04/19/2026 04/18/2025 Breast Cancer Screening 04/11/2027 04/11/20, 03/18/2024, 02/23/2023, Additional history exists Colon Cancer Screening 06/15/2027 Colonoscopy 06/15/2027 06/15/2017, 11/24/2013 Cervical Cancer Screening 06/15/2028 Pap Smear 06/15/2028 06/15/2025, 12/24, 01/10/2019, Additional history exists Hepatitis C Screening Completed 08/28/2017 Hepatitis B [...] body weight General No Loveless, JONATHAN Jackson Procedures Procedure Name Priority Date/Time Associated Diagnosis Comments INSPECTOR WREATH CYTOLOGY REQUEST (PAP ONLY) Routine 06/15/2025 11:09 AM EDT Well female exam with routine gynecological exam [facility] INSPECTOR WREATH CYTOLOGY ORDER Routine 06/15/2025 11:09 AM EDT Well female exam with routine gynecological exam URINE CULTURE (NO STAIN) Routine 05/23/2025 4:42 [...] screening mammogram for malignant neoplasm of breast HCV ANTIBODY SCREEN W/ REFLEX Routine 08/28/2017 5:12 PM EDT Need for hepatitis C screening test [facility] EGD-COLONOSCOPY Routine 06/15/2017 12:00 PM EDT from Last 3 Months or Most Recently Relevant to Health Maintenance Results * INSPECTOR WREATH CYTOLOGY REQUEST (PAP ONLY) (06/15/2025 11:09 AM EDT) CASE REPORT Gynecologic Cytology Report Case: [id number] Authorizing Provider: Zamzam Carlisle MD Collected: 06/15/2025 1109 Ordering Location: [facility] Received: 06/15/2025 1109 First Screen: Anita Berrios CT Specimen: LIQUID-BASED PAP - CERVICAL/ENDOCERV ICAL, Cervix, Endocervical 06/20/2025 12:48 PM EDT [facility] PAP FINAL DIAGNOSIS Negative for intraepithelial lesion or malignancy 06/20/2025 12:48 PM EDT [facility] at 1248 EDT MICROSCOPIC DESCRIPTION Microscopic examination is performed and the findings corroborate the diagnosis. 06/20/2025 12:48 PM EDT [facility] PAP SMEAR ADEQUACY Satisfactory for evaluation 06/20/2025 12:48 PM EDT [facility] ENDOCERVICAL T-ZONE Transformation zone absent. 06/20/2025 12:48 PM EDT [facility] EMBEDDED IMAGES 12:48 PM EDT [facility] PAP DISCLAIMER The Pap Smear is a screening test that aids in the detection of cervical cancer and cancer precursors. Both false positive and false negative results can occur. The test should be used at regular intervals, and positive results should be confirmed before definitive therapy. Processed using the [employer]inPrep P[employer] Teacher Automated cytology screening device (Rezzcard). 06/20/2025 12:48 PM EDT [facility] Thin Prep ENDOCERVICAL STRUCTURE / Unknown 06/15/2025 11:09 AM EDT 06/15/2025 11:09 AM EDT us Zamzam Carlisle MD CYTOLOGY ORDERABLES Final Resul t Performing Organization Address City/[facility]/ZIP Co de Phone Number [facility] [address] [place] [address] * URINE CULTURE (NO STAIN) (05/23/2025 4:42 PM EDT) Only the most recent of2 resultswithin the time period is included. Culture Multiple bacterial species isolated from urine consistent with urogenital commensal organisms. 05/25/2025 10:35 AM EDT [facility] Urine STRUCTURE OF URINARY TRACT PROPER / Unknown 05/23/2025 4:42 PM EDT 05/23/2025 4:42 PM EDT Wilmer Jiménez MD MICROBIOLOGY - GENERAL ORDERA BLES Final Result Performing Organization Address City/[facility] Co de Phone Number [facility] [address], [place] [address] * (ABNORMAL) SEP URINALYSIS POC [...] 0.2 0.2, 1.0 05/23/2025 4:40 PM EDT [facility] [place] [facility] UA Nitrite POC Negative Negative 05/23/2025 4:40 PM EDT [facility] [place] [facility] UA Leuk Est POC Negative Negative 4:40 PM EDT [facility] [place] [facility] Urine STRUCTURE OF URINARY TRACT PROPER / Unknown 05/23/2025 4:38 PM EDT 05/23/2025 4:40 PM EDT Wilmer Jiménez MD POINT OF CARE TEST ORDERABLES Final Result [place] [address] [address] [place] [address] * CBC (04/19/2025 2:39 PM EDT) WBC [...] 12.5 fL 04/19/2025 7:37 PM EDT [facility] [employer] Blood VENOUS BLOOD / Unknown Venipuncture / Unknown 04/19/2025 2:39 PM EDT 04/19/2025 2:39 PM EDT Fernando Green DO HEMATOLOGY ORDERABLES Final Result Performing Organization Address [facility] Co de Phone Number [facility] [employer] , [place] [address] * (ABNORMAL) HEMOGLOBIN A1C (04/19/2025 2:39 PM EDT) Hgb A1C 6.1(H) 4.2 - 5.6 % 04/19/2025 8:03 PM EDT [facility] [employer] [facility] Est. Avg Glucose 128 mg/dL 04/19/2025 8:03 PM EDT [facility] [employer] [facility] Blood VENOUS BLOOD / Unknown Venipuncture / Unknown 04/19/2025 2:39 PM EDT 04/19/2025 2:39 PM EDT Narrative [facility] [employer] [facility] - 04/19/2025 8:03 PM EDT REFERENCE RANGE: Normal: 4.0-5.6% Pre-diabetes: 5.7-6.4% Provisional diagnosis of diabetes: >6.4% Hgb F>10% and anything which shortens red cell survival, such as hemolytic anemia, or unstable hemoglobin variants such as HbSS, HbSC, or HbCC, will lower the HbA1c value associated with a given level of glycemic control. Fernando Green DO CHEMISTRY ORDERABLES Final R esult Performing Organization Address [facility] Co de Phone Number [facility] [employer] , [place] [address] * THYROID STIMULATING HORMONE (04/18/2025 11:15 AM EDT) TSH 3.170 0.270 - 4.200 mcIU/mL 04/18/2025 4:10 PM EDT [facility] [employer] [facility] Blood VENOUS BLOOD / Unknown Venipuncture / Unknown 04/18/2025 11:15 AM EDT 04/18/2025 11:15 AM EDT Narrative [facility] - 04/18/2025 4:10 PM EDT Ingestion of keyona doses of biotin (>5 mg/day) taken within 8 hours of drawing blood sample can interfere with this immunoassay test. Fernando Green DO CHEMISTRY ORDERABLES Final R [facility] Performing Organization Address [facility] de Phone Number [facility] [employer] [address] , [place] [id number] * T4, FREE (THYROXINE) (04/18/2025 11:15 AM EDT) Free T4 1.12 0.80 - 1.80 ng/dL 04/18/2025 4:10 PM EDT [facility] Blood VENOUS BLOOD / Unknown Venipuncture / Unknown 04/18/2025 11:15 AM EDT 04/18/2025 11:15 AM EDT Narrative [facility] - 04/18/2025 4:10 PM EDT Ingestion of keyona doses of biotin (>5 mg/day) taken within 8 hours of drawing blood sample can interfere with this immunoassay test. Fernando Green DO CHEMISTRY ORDERABLES Final [facility] Performing Organization Address [facility] de Phone Number [facility] [employer] [address] , [place] [address] * CORTISOL (04/18/2025 11:15 AM EDT) Cortisol 9.59 mcg/dL 04/18/2025 3:2 9 PM EDT [facility] Blood VENOUS BLOOD / Unknown Venipuncture / Unknown 04/18/2025 11:15 AM EDT 04/18/2025 11:15 AM EDT Narrative [facility] - 04/18/2025 3:29 PM EDT AM: 4.82 [...] sample can interfere with this immunoassay test. us Fernando Green DO CHEMISTRY ORDERABLES Final R esult [facility] [employer] [address] , [place] [address] * (ABNORMAL) LIPID SCREEN (04/18/2025 11:15 AM EDT) Cholesterol 221(H) <200 mg/dL 04/18/2025 4:10 PM EDT [facility] Comment: < 200 Desirable 200 - 239 Borderline High >= 240 High Triglyceride 117 <150 mg/dL 04/18/2025 4:10 PM EDT [facility] Comment: < 150 Normal 150 - 199 Borderline High 200 - 499 High >= 500 Very High HDL 60 >=40 mg/dL 04/18/2025 4:10 PM EDT [facility] Comment: > 60 Optimal 40 - 60 Acceptable < 40 Low LDL Calculated 140(H) <100 mg/dL 04/18/2025 4:10 PM EDT [facility] Comment: < 100 Optimal 100 - 129 Near or above optimal 130 - 159 Borderline High 160 - 189 High >= 190 Very High The National Institutes of Health (NIH) equation is used for all lipid panels that report calculated LDL (LDL-C). Non-HDL-C Calculated 161(H) <=129 mg/dL 04/18/2025 4:10 PM EDT [facility] Comment: <130 Desirable 130-159 Above Desirable 160-189 Borderline High 190-219 High >= 220 Very High Fasting Specimen? Yes None 025 4:10 PM EDT [facility] Blood VENOUS BLOOD / Unknown Venipuncture / Unknown 04/18/2025 11:15 AM EDT 04/18/2025 11:15 AM EDT us Fernando Green DO CHEMISTRY ORDERABLES Final R esult [facility] [address] [facility] , [place] [address] * (ABNORMAL) COMPREHENSIVE METABOLIC PANEL (04/18/2025 11:15 [...] 18 <=40 U/L 04/18/2025 4:10 PM EDT [facility] [employer] [facility] Alk Phos 69 36 - 123 U/L 04/18/2025 4:10 PM EDT [facility] [facility] eGFR (CKD-EPIcr 2020) 59(L) >=60 mL/min/1.7 3 m2 04/18/2025 4:10 PM EDT [facility] [employer] [facility] Comment:Estimated GFR was ca lculated using the CKD-EPIcr (2020) equation refit without race. The equation is recommended by the National Kidney Foundation - [place] [employer] Neph[employer] Task Force. Blood VENOUS BLOOD / Unknown Venipuncture / Unknown 04/18/2025 11:15 AM EDT 04/18/2025 11:15 AM EDT us Fernando Green DO CHEMISTRY ORDERABLES Final R esult [facility] [employer] [address] , [place] [address] * MM MAMMO DIGITAL LORIE SCREEN BILAT (04/11/2025 9:52 AM EDT) Anatomical Region Laterality Modality Breast Bilateral Mammography 04/11/2025 9:52 AM EDT Impressions 04/11/2025 10:15 AM EDT Benign ([id number]) RECOMMENDATION: Routine Screening Mammogram in 1 Year Bilateral . . COMMENTS: DISCLAIMER *The patient was notified by MyChart or mail of the results for this examination. *The patient's information was entered into a reminder system with a target due date for the next breast imaging, in accordance with the [place] [employer] and the Society of [...] for screening mammogram for malignant neoplasm of [id number]-CM COMPARISON STUDIES: Compared with prior studies the most recent being 03/18/2024 MM MAMMO DIGITAL LORIE SCREEN BILAT at [facility] 02/23/2023 MM MAMMO DIGITAL LORIE DIAGN BILAT at [facility] 12/30/2021 MM MAMMO DIGITAL LORIE DIAGN BILAT at [facility] TISSUE DENSITY: There are scattered areas of fibroglandular density. FINDINGS: No mammographic evidence of malignancy. Stable tissue pattern with biopsy marker in the left breast. Procedure Note Keith Orantes MD - 04/11/2025 EXAM: MM MAMMO DIGITAL LORIE SCREEN BILAT EXAM DATE: 04/11/2025 9:52 AM INDICATION: Z12.31-Encounter for screening mammogram for malignantneoplasm of [id number]-[id number]-CM COMPARISON STUDIES: Compared with prior studies the most recent being 03/18/2024 MM MAMMO DIGITAL LORIE SCREEN BILAT at [facility] 02/23/2023 MM MAMMO DIGITAL LORIE DIAGN BILAT at [facility] 12/30/2021 MM MAMMO DIGITAL LORIE DIAGN BILAT at [facility] TISSUE DENSITY: There are scattered areas of fibroglandular density. FINDINGS: No mammographic evidence of malignancy. Stable tissue patternwith biopsy marker in the left breast. IMPRESSION: Benign ([id number]) RECOMMENDATION: Routine Screening Mammogram in 1 Year Bilateral . . COMMENTS: DISCLAIMER *The patient was notified by MyChart or mail of the results for this examination. *The patient's information was entered into a reminder system with atarget due date for the next breast imaging, in accordance with the [place] [employer] and the Society of Breast Imaging recommendations. *Breast Imaging has a false negative rate of 15%. *Any patient with a palpable abnormality, unexplained by breast imaging,should be managed on a clinical basis by the attending physician. Fernando Green DO IMG MAMMOGRAPHY ORDERABLES F inal Result * (ABNORMAL) HEPATITIS C ANTIBODY - SCREENING (08/28/2017 5:12 PM EDT) Hep C Ab Positive(A ) Negative 08/29/2017 10:20 AM EDT [facility] Blood VENOUS BLOOD / Unknown Venipuncture / Unknown 08/28/2017 5:12 PM EDT 08/28/2017 5:13 PM EDT Viji Hinojosa PA-C HEMATOLOGY ORDERABLES F inal Result Performing Organization Address [facility] de Phone Number [facility] [address] [place] [address] * [facility] EGD-COLONOSCOPY (06/15/2017 12:00 PM EDT) 06/15/2017 12:0 0 PM EDT Impressions [facility] - 06/15/2017 12:29 PM EDT Plan: Screening Colonoscopy in 10 years. This section is an excerpt of the full report. Miguel Benavidez MD GI PROCEDURE ORDERABLES Fin al Result Performing Organization Address [facility] de Phone Number [facility] [address] [place] [address] from Last 3 Months or Most Recently Relevant to Health Maintenance Insurance TACO HESS MR TACO HESS MR TACO HESS MR Advance Directives For more information, please contact: [phone] * Full Code (Latest Code Status on File) Date Activated Date Inactivated Comments 10/08/2015 9:04 AM 10/08/2015 9:16 PM Care Teams Wet Suit Gluer Relationship Specialty Start Date End Date Fernando Green DO [address] [address] [address] [place] [address] PCP - General Internal Medicine 06/06/24 Rachna Talavera MD [address] [place] [address] Physician Internal Medicine-Nephrology 05/23/15 Leola Mitchell LCSW Fleet Manager/Dispatch 06/09/25
--- OUTSIDE RECORDS SUMMARY | 2025-06-21 12:26 | XMS_ITS | Encounter Summary ---
Author Organization [place] [address] Care Team Providers Care Drawing Box Tender Name Role Phone Rachna Talaevra MD Unavailable Viji Hinojosa PA-C Primary Care Provider Fernando Green DO Primary Care Provider + [phone] Viji Hinojosa PA-C Primary Care Provider Fernando Green DO Primary Care Provider + [phone] Sergio Cramer MD Primary Care Provider [phone] Fernando Green DO Primary Care Provider + [phone] Leola Mitchell BENCH SCIENTIST Unavailable Unavailable Encounter Details Date Type Department Care Team (Late st Contact Info) Description 06/15/2017 Orders Only [facility] [address] [place] [address] Miguel Benavidez MD [address] [place] [address] Social History Tobacco Use Types Packs/Day Years [...] Visit [facility] [place] [facility] [address] [facility] [address] [place] [id number] Leola Mitchell LCSW documented as of this [...] 12:[address] [facility] - 06/15/2017 12:29 PM EDT Plan: Screening Colonoscopy in 10 years. This section is an excerpt of the full report. Miguel Benavidez MD GI PROCEDURE ORDERABLES Fin al Result Performing Organization Address City/State/[facility] Co de Phone Number [facility] [address] [place] [address] documented in this encounter Visit Diagnoses Not on filedocumented in this encounter Additional Health Concerns Infection Onset Date Last Indicated Resolved Time COVID-19 11/24/2023 11/24/2023 12/14/2023 10:1 2 PM EST documented as of this encounter Care Teams Drawing Box Tender Relationship Specialty Start Date End Date Viji Hinojosa PA-C [address] [facility] [address] [place] [address] PCP - General Physician Inventory Transcriber 06/15/17 08/24/17 Fernando Green DO [address] [place] [address] PCP - General Internal Medicine 08/25/17 10/13/17 Viji Hinojosa PA-C [address] [id number] PCP - General Physician Inventory Transcriber 10/14/17 10/16/17 Fernando Green DO [address] [address] PCP - General Internal Medicine 10/17/17 01/28/21 Sergio Cramer MD [address] [place] [address] PCP - General Family Medicine 01/29/21 06/05/24 Fernando Green DO [address] [address] [address] [place] [address] PCP - General Internal Medicine 06/06/24 Rachna Talavera MD [address] [place] [address] Physician Internal Medicine-Nephrology 05/23/15 Leola Mitchell LCSW Lactation Coordinator 06/09/25 documented as of this encounter
--- OUTSIDE RECORDS SUMMARY | 2025-06-21 12:27 | XMS_ITS | Encounter Summary ---
Author [place] [address] Care Team Providers Care Professor Of Poultry Science Name Role Phone Rachna Talavera MD Unavailable Fernando Green DO Primary Care Provider [phone] Leola Mtichell LCSW Unavailable Unavailable Encounter Details Date Type Department Care Team (Late st Contact Info) Description 04/21/2025 Results Follow-Up Jun 42 PC [address] [facility] [address] [place] [address] Fernando Green DO [address] [facility] [address] [place] [address] CBC, HEMOGLOBIN A1C Social History [...] Sirisha Hernandez MA documented in this encounter Plan of Treatment Upcoming Encounters Date Type Department Care Team (Late st Contact Info) Description 06/28/2025 9:00 AM EDT Office Visit [address] [facility] [address] [place] [address] Leola Mitchell LCSW documented as of this encounter Goals Goal Patient Goal Type Associated Problems Recent Progress Patient-Stated? Author Blood Pressure < 140/90 Blood Pressure 112/80(2024 10:46 AM EDT) No Hyacinth Lemus MA Maintain a healthy diet, exercise regularly and maintain an ideal body weight General No Irina, JONATHAN Jackson documented as of this encounter Visit Diagnoses Not on filedocumented in this encounter Care Teams Professor Of Poultry Science Relationship Specialty Start Date End Date Fernando Green DO [address] [address] [address] [place] [phone] PCP - General Internal Medicine 06/06/24 Rachna Talavera MD [address] [place] [address] Physician Internal Medicine-Nephrology 05/23/15 Leola Mitchell LCSW Marble Machine Operator 06/09/25 documented as of this encounter
--- OUTSIDE RECORDS SUMMARY | 2025-06-21 12:27 | XMS_ITS | Encounter Summary ---
Author Organization [place] [address] Care Team Providers Care Bull Gang Supervisor Name Role Phone Rachna Talavera MD Unavailable Fernando Green DO Primary Care Provider [phone] Leola Mitchell LCSW Unavailable Unavailable Encounter Details Date Type Department Care Team (Late st Contact Info) Description 05/25/2025 Results Follow-Up Jun 42 PC [address] [facility] [address] [place] [id number] Wilmer Jiménez MD [address] [facility] [address] [place] [address] URINE CULTURE (NO STAIN) Social History Tobacco Use Types Packs/Day Years [...] Description 06/28/2025 9:00 AM EDT Office Visit [address] [facility] [address] [place] [address] Leola Mitchell LCSW documented as of this [...] on filedocumented in this encounter Care Teams Bull Gang Supervisor Relationship Specialty Start Date End Date Fernando Green DO [address] [address] [address] [place] [id number] PCP - General Internal Medicine 06/06/24 Rachna Talavera MD [address] [place] [address] Physician Internal Medicine-Nephrology 05/23/15 Leola Mitchell LCSW Bunk House Worker 06/09/25 documented as of this encounter
--- OUTSIDE RECORDS SUMMARY | 2025-06-21 12:27 | XMS_ITS | Encounter Summary ---
Author Organization [place] [address] Care Team Providers Care Door Closer Mechanic Name Role Phone Rachna Talavera MD Unavailable Fernando Green DO Primary Care Provider [phone] Reason for Visit * Reason Onset Date Comments Referral 06/08/2025 Encounter Details Date Type Department Care Team (Late st Contact Info) Description 06/08/2025 Patient Outreach [facility] [address] App[place] [address] Erika Ward Referral Social History Tobacco Use Types Packs/Day Years [...] Sirisha Hernandez MA documented in this encounter Progress Notes * Erika Ward - 06/08/2025 11:01 AM EDT Chrome Tanning Drum Operator Management Referral Request Referral received from: Adrianna Coleman Referral Reason: Mental Health Therapy Evaluation Referral note: Assigned to: Leola Mitchell LCSW documented in this encounter Plan of Treatment Upcoming Encounters Date Type Department Care Team (Late st Contact Info) Description 06/28/2025 9:00 AM EDT Office Visit [facility] [place] [address] [address] [address] [place] [address] Leola Mitchell LCSW documented as of this [...] on filedocumented in this encounter Care Teams Door Closer Mechanic Relationship Specialty Start Date End Date Fernando Green DO [address] [address] [address] [place] [phone] PCP - General Internal Medicine 06/06/24 Rachna Talavera MD [address] [place] [address] Physician Internal Medicine-Nephrology 05/23/15 documented as of this encounter
--- OUTSIDE RECORDS SUMMARY | 2025-06-21 12:27 | XMS_ITS | Encounter Summary ---
Author Organization [place] [address] Care Team Providers Care Window And Door Installer Name Role Phone Rachna Talavera MD Unavailable Fernando Green DO Primary Care Provider [phone] Leola Mitchell LCSW Unavailable Unavailable Reason for Visit * Reason Comments CM- Telephonic Outreach CM - Contact Made Encounter Details Date Type Department Care Team (Late st Contact Info) Description 06/09/2025 Patient Outreach [facility] [place] [address] [place] [id number] Leola Mitchell LCSW CM- Telephonic Outreach; CM - Contact Made Social History Tobacco Use Types Packs/Day Years [...] Progress Notes * Leola Mitchell LCSW - 06/09/2025 12:41 PM EDT Referral Contact Made: Social work referral was received. ROD PILER contacted patient to introduce services and explore patient's need. Initial appointment was scheduled for 06/16/25 in-person . ROD PILER will follow-up in/around time of scheduled appointment. Behavioral Health Intervention Phase: Engaging Length of Encounter: 0 - 5 minutes Additional Disclosures: N/A. documented in this encounter Plan of Treatment Upcoming Encounters Date Type Department Care Team (Late st Contact Info) Description 06/28/2025 9:00 AM EDT Office Visit [facility] [place] [address] [address] [address] [place] [address] Leola Mitchell LCSW documented as of this [...] on filedocumented in this encounter Care Teams Window And Door Installer Relationship Specialty Start Date End Date Fernando Green DO [address] [address] PCP - General Internal Medicine 06/06/24 Rachna Talavera MD [address] [place] [address] Physician Internal Medicine-Nephrology 05/23/15 Leola Mitchell LCSW Assistant Program Manager 06/09/25 documented as of this encounter
[2025-06-21 13:59] LABS: Free T4 (Free Thyroxine) 1.03 ng/dl (0.78-2.19)
[2025-06-21 14:15] LABS: Thyroid Stimulating Hormone 2.94 uIU/mL (0.465-4.68)
== END 2025-06-21 23:59 | disposition home or self-care (01) ==
LOC: LAB 12:24
PROVIDERS: PCP Internal Medicine; Visit Provider Internal Medicine
DX: I25.10 Atherosclerotic heart disease of native coronary artery without angina pectoris (principal); I10 Essential (primary) hypertension
CPT/HCPCS: 36415; 84439; 84443